=== PATIENT | female | born 1980 | race Caucasian/White ===

== ENCOUNTER → 2017-07-08 | Outpatient (CLI) | payer OTHER ==
--- NOTE | 2017-07-08 15:19 | US ---
EXAMINATION TYPE: US pelvic complete DATE OF EXAM: 07/08/2017 COMPARISON: Pelvic ultrasound December 08, 2011 CLINICAL HISTORY: N92.1 IRREGULAR INTERMENSTRUAL BLEEDING. Vaginal spotting mid cycle x several years ; C Section x 5, Tubal ligation; G7P; Thyroid issues per patient. TECHNIQUE: Transvaginal (TV) and Transabdominal (TA) to better assess endometrium as was not well se en on TAUS. Date of LMP: 06/24/2017 EXAM MEASUREMENTS: Uterus: 9.2 x 4.2 x 3.8 cm Endometrial Stripe: 0.9 cm Right Ovary: 2.7 x 1.8 x 2.1 cm Left Ovary: 3.0 x 1.7 x 2.0 cm 1. Uterus: Anteverted; Fluid pocket noted at C section scar in HEYDI = 0.7 x 0.9 x 0.3cm 2. Endometrium: wnl 3. Right Ovary: small follicles with largest = 0.5 x 0.4 x 0.5cm 4. Left Ovary: multifollicular with largest as complex cyst with peripheral color flow = 1.3 x 1.4 x 1.1cm 5. Bilateral Adnexa: wnl 6. Posterior cul-de-sac: wnl Uterus is anteverted in shape. Tiny fluid collection along the anterior lower uterine sectio n scar is incidentally noted. Endometrium is 9 mm which is within normal limits for secretory phase o f menstrual cycle. No free fluid is seen in pelvic cul-de-sac. Both ovaries are identified. Some peripheral follicles are scattered throughout the periphery of both ovaries. IMPRESSION: No significant finding is seen to account for patient's symptoms.
== END | disposition home or self-care (01) ==
LOC: RADUSWWP 13:39
PROVIDERS: ATTEND Obstetrics & Gynecology
DX: N92.1 Excessive and frequent menstruation with irregular cycle (principal)
CPT/HCPCS: 76830; 76856

== ENCOUNTER → 2017-08-02 | Outpatient (CLI) | payer OTHER ==
[2017-08-02 13:43] LABS: Basophils # (A) 0.1 k/uL (0-0.2); Basophils % (A) 1 %; CHCM 33.5; Eosinophils # (A) 0.2 k/uL (0-0.7); Eosinophils % (A) 2 %; HCT 43.6 % (34.0-46.0); HDW 2.55; HGB 14.7 gm/dL (11.4-16.0); Luc # (Auto) 0.22; Luc % (Auto) 3; Lymphocytes # (A) 1.6 k/uL (1.0-4.8); Lymphocytes % (A) 19 %; MCH 31.3 pg (25.0-35.0); MCHC 33.7 g/dL (31.0-37.0); MCV 92.8 fL (80.0-100.0); Mean Platelet Volume 6.1; Monocytes # (A) 0.3 k/uL (0-1.0); Monocytes % (A) 4 %; Neutrophils # (A) 5.8 k/uL (1.3-7.7); Neutrophils % (A) 72 %; RDW 12.9 % (11.5-15.5); WBC (Perox) 8.57
== END | disposition home or self-care (01) ==
LOC: LABWHC1 13:06
PROVIDERS: ATTEND Obstetrics & Gynecology
DX: Z01.812 Encounter for preprocedural laboratory examination (principal)
CPT/HCPCS: 36415; 85025

== ENCOUNTER 2017-08-09 08:10 | Day surgery (SDC) | payer OTHER ==
[2017-08-05 12:00] VITALS: BMI 26.9
--- NOTE | 2017-08-08 17:15 | P.HPOB ---
History of Present Illness H&P Date: 08/08/17 Chief Complaint: Menorrhagia 37-year-old presents for D&C, hysteroscopy, endometrial ablation with NovaSure due to menorrhagia. Review of Systems All systems: negative Constitutional: Denies chills, Denies fever Eyes: denies blurred vision, denies pain Ears, nose, mouth and throat: Denies headache, Denies sore throat Cardiovascular: Denies chest pain, Denies shortness of breath Respiratory: Denies cough Gastrointestinal: Denies abdominal pain, Denies diarrhea, Denies nausea, Denies vomiting Genitourinary: Denies dysuria, Denies hematuria Musculoskeletal: Denies myalgias Integumentary: Denies pruritus, Denies rash Neurological: Denies numbness, Denies weakness Psychiatric: Denies anxiety, Denies depression Endocrine: Denies fatigue, Denies weight change Past Medical History Past Medical History: Hypertension, Neurologic Disorder (Neuropathy, migraines) , Syncope, Thyroid Disorder (Hypothyroid) Additional Past Medical History / Comment(s): sjogrens History of Any Multi-Drug Resistant Organisms: None Reported Past Surgical History: Section, Cholecystectomy, Tubal Ligation Additional Past Surgical History / Comment(s): rt breast lumpectomy, brain tumor removed 2014, abdominoplasty, Past Anesthesia/Blood Transfusion Reactions: No Reported Reaction Smoking Status: Current every day smoker - Past Family History Mother Family Medical History: No Reported History Medications and Allergies Home Medications Medication Instructions Recorded Confirmed Type Cyanocobalamin (Vitamin B-12) 1,000 mcg PO DAILY 08/05/17 08/05/17 History [Vitamin B-12] Cyclobenzaprine [Flexeril] 10 mg PO TID PRN 08/05/17 08/05/17 History Ergocalciferol [Vitamin D2] 50,000 unit PO ESQUIVEL 08/05/17 08/05/17 History Gabapentin [Neurontin] 600 mg PO TID 08/05/17 08/05/17 History Hydroxychloroquine Sulfate 200 mg PO BID 08/05/17 08/05/17 History [Plaquenil] Levothyroxine Sodium [Synthroid] 125 mcg PO DAILY 08/05/17 08/05/17 History Losartan/Hydrochlorothiazide 1 each PO DAILY 08/05/17 08/05/17 History [Losartan-Hctz 100-25 mg Tab] Pilocarpine [Salagen] 5 mg PO BID 08/05/17 08/05/17 History Topiramate [Topamax] 150 mg PO BID 08/05/17 08/05/17 History Triamterene/Hydrochlorothiazid 1 cap PO DAILY 08/05/17 08/05/17 History [Dyazide 37.5-25 Capsule] amLODIPine [Norvasc] 5 mg PO BID 08/05/17 08/05/17 History Allergies Allergy/AdvReac Type Severity Reaction Status Date / Time No Known Allergies Allergy Verified 08/05/17 11:49 Exam Osteopathic Statement: *. No significant issues noted on an osteopathic structural exam other than those noted in the History and Physical/Consult. Heart: Regular rate and rhythm Lungs: Clear to auscultation bilaterally Abdomen: Soft, nontender Extremities: Negative Homans sign Assessment and Plan (1) Menorrhagia Status: Acute Plan: 1. D&C, hysteroscopy, endometrial ablation with NovaSure
[~2017-08-09 08:10] MED LIST: DEXAMETHASONE SOD PHOSPHATE 10 MG/ML 1 ML VIAL IV ONE; LACTATED RINGERS 1,000 ML IV SCH; MIDAZOLAM 2 MG/2 ML VIAL IV PRN; ONDANSETRON 4 MG/2 ML VIAL IVP ONE; Pre Op ABX Message 1 EACH MISC MISCELLANE ONE; SCOPOLAMINE 1.5MG/72HR PATCH TRANSDERM ONE
[2017-08-09 08:32] VITALS: RESP 16
[2017-08-09] MEDS ORDERED: LIDOCAINE 1% 20 ML VIAL (10MG/ML) FOR IV START INTRADERMA ONE (08:43)
[2017-08-09] MEDS ORDERED: MIDAZOLAM 2 MG/2 ML VIAL ONE (09:18)
[2017-08-09] MEDS ORDERED: fentaNYL (PF) 50 MCG/ML 2 ML AMP ONE (09:18)
[2017-08-09] MEDS ORDERED: LIDOCAINE 1% INJ 10MG/ML (20 ML MDV) ONE (09:18)
[2017-08-09] MEDS ORDERED: PROPOFOL 10 MG/ML 20 ML VIAL IV ONE (09:18)
--- NOTE | 2017-08-09 09:47 | P.OP ---
Date of Procedure: 08/09/17 Preoperative Diagnosis: 1. Menorrhagia Postoperative Diagnosis: 1. Menorrhagia Procedure(s) Performed: D&C, hysteroscopy, endometrial ablation with NovaSure Implants: Anesthesia: MAC Surgeon: Shani Perez Estimated Blood Loss (ml): 10 IV fluids (ml): 300 Urine output (ml): 50 Pathology: other (Endometrial curettings) Condition: stable Disposition: PACU Indications for Procedure: Operative Findings: Cavity length 6.5 cm, width 4.1 cm, power 147 W, time of ablation 75 seconds, adequate ablation after NovaSure Description of Procedure: Patient is taken the operating room where general anesthesia was obtained without difficulty. She was prepped and draped in normal sterile fashion dorsal lithotomy position, legs placed in the candy cane stirrups. Bladder was drained of all urine. Weighted speculum placed in the vagina and the anterior lip the cervix was grasped with serial tooth tenaculum. The uterus sounded to 9 cm and the cervix under 2.5 cm making the cavity length 6.5 cm. The cervix was dilated to #8 Hegar dilator. Hysteroscopy was then performed. Both ostia were visualized and there was a smooth contour of the uterus. Sharp curet was then gently used to obtain endometrial curettings. The NovaSure was introduced into the uterus with a cavity length of 6.5 cm, width 4.1 cm. after cavity assessment was passed, the time of ablation was 75 seconds at 147 W. Hysteroscopy was again performed and adequate ablation was noted. All instruments removed from the vagina. Patient tolerated the procedure well, sponge and instrument counts were correct 2 and she was taken to recovery in stable condition.
[2017-08-09] MEDS: HYDROmorphone 1 MG/ML 1 ML SYRINGE IVP PRN ×4 (09:56→10:19)
[2017-08-09] MEDS ORDERED: KETOROLAC 30 MG/ML 1 ML VIAL IVP ONE (09:56)
[2017-08-09 10:03] VITALS: TEMP 98
[2017-08-09] MEDS: MEPERIDINE 50 MG/ML SYRINGE IVP ONE ×2 (10:27→10:35)
[2017-08-09 14:11] VITALS: BP 117/70; PULSE 84
== END 2017-08-09 11:45 | disposition home or self-care (01) ==
LOC: OR 08:10
PROVIDERS: ATTEND Obstetrics & Gynecology
DX: N92.1 Excessive and frequent menstruation with irregular cycle (principal); I10 Essential (primary) hypertension; G62.9 Polyneuropathy, unspecified; G43.909 Migraine, unspecified, not intractable, without status migrainosus; E03.9 Hypothyroidism, unspecified; M35.00 Sjogren syndrome, unspecified; R55 Syncope and collapse; Z98.51 Tubal ligation status; F17.200 Nicotine dependence, unspecified, uncomplicated; Z79.899 Other long term (current) drug therapy
CPT/HCPCS: 81025; 88305; 58563; J2250; J1100; J2175; J2405; J2001; J3010; J1885; J1170; J2704

== ENCOUNTER 2017-12-02 05:38 | Emergency (ER) | payer OTHER ==
[2017-12-02] MEDS ORDERED: levETIRAcetam IV 1,000 MG in SALINE 1 100ML.BAG IVPB STA (05:46)
[2017-12-02] MEDS ORDERED: LORazepam 2 MG/ML INJ IV STA (05:46)
[2017-12-02] MEDS ORDERED: SODIUM CHLORIDE 0.9% 500 ML IV STA (05:46)
[2017-12-02] MEDS ORDERED: SODIUM CHLORIDE 0.9% 1,000 ML IV STA (05:46)
[2017-12-02 05:57] LABS: Basophils % (A) 1 %; Eosinophils # (A) 0.3 k/uL (0-0.7); Eosinophils % (A) 3 %; HCT 42.7 % (34.0-46.0); HGB 13.7 gm/dL (11.4-16.0); Lymphocytes # (A) 2.4 k/uL (1.0-4.8); Lymphocytes % (A) 30 %; MCHC 32.1 g/dL (31.0-37.0); MCV 93.4 fL (80.0-100.0); Mean Platelet Volume 6.6; Monocytes # (A) 0.3 k/uL (0-1.0); Monocytes % (A) 3 %; Neutrophils # (A) 4.7 k/uL (1.3-7.7); Neutrophils % (A) 60 %; Platelet Count 346 k/uL (150-450); RBC 4.57 m/uL (3.80-5.40); RDW 12.9 % (11.5-15.5); WBC 7.7 k/uL (3.8-10.6)
[2017-12-02 06:07] LABS: ALT 33 U/L (9-52); AST 22 U/L (14-36); Acetaminophen <10.0 ug/mL; Alcohol <10 mg/dL; Alkaline Phosphatase 37 U/L (38-126); Anion Gap 8 mmol/L; Blood Urea Nitrogen 9 mg/dL (7-17); Calcium 9.6 mg/dL (8.4-10.2); Carbon Dioxide 28 mmol/L (22-30); Chloride 103 mmol/L (98-107); Glucose 98 mg/dL (74-99); Magnesium 1.7 mg/dL (1.6-2.3); Phosphorus 3.9 mg/dL (2.5-4.5); Potassium 4.3 mmol/L (3.5-5.1); Salicylate <1.0 mg/dL; Sodium 139 mmol/L (137-145); Total Bilirubin 0.2 mg/dL (0.2-1.3); Total Protein 6.6 g/dL (6.3-8.2)
--- NOTE | 2017-12-02 06:13 | ED ---
General Adult HPI - General Chief complaint: Seizure Stated complaint: seizure Time Seen by Provider: 12/02/17 05:46 Source: patient, EMS, RN notes reviewed, old records reviewed Mode of arrival: EMS Limitations: no limitations - History of Present Illness Initial comments: This is a 37 female to the ED complains of possible seizure actrivity. 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 She states she has had a seizure previously and has a history of brain surgery sp brain tumor. Patient denies drugs or alcohol. Patient hasa occasional headaches but now has nocomplaints. Patient and EMS state patient had seixure that woke and stopped on EMS arrival, patient has no injury, and was postIctal. - Related Data Home Medications Medication Instructions Recorded Confirmed Cyanocobalamin (Vitamin B-12) 1,000 mcg PO DAILY 08/05/17 12/02/17 [Vitamin B-12] Cyclobenzaprine [Flexeril] 10 mg PO TID PRN 08/05/17 12/02/17 Ergocalciferol [Vitamin D2] 50,000 unit PO ESQUIVEL 08/05/17 12/02/17 Gabapentin [Neurontin] 600 mg PO TID 08/05/17 12/02/17 Hydroxychloroquine Sulfate 200 mg PO BID 08/05/17 12/02/17 [Plaquenil] Levothyroxine Sodium [Synthroid] 125 mcg PO DAILY 08/05/17 12/02/17 Losartan/Hydrochlorothiazide 1 each PO DAILY 08/05/17 12/02/17 [Losartan-Hctz 100-25 mg Tab] Pilocarpine [Salagen] 5 mg PO BID 08/05/17 12/02/17 Topiramate [Topamax] 150 mg PO BID 08/05/17 12/02/17 Triamterene/Hydrochlorothiazid 1 cap PO DAILY 08/05/17 12/02/17 [Dyazide 37.5-25 Capsule] amLODIPine [Norvasc] 5 mg PO BID 08/05/17 12/02/17 Previous Rx's Medication Instructions Recorded Ibuprofen [Motrin] 600 mg PO Q6HR PRN #30 tab 08/09/17 Allergies Allergy/AdvReac Type Severity Reaction Status Date / Time No Known Allergies Allergy Verified 12/02/17 05:43 Review of Systems ROS Statement: Those systems with pertinent positive or pertinent negative responses have been documented in the HPI. ROS Other: All systems not noted in ROS Statement are negative. Past Medical History Past Medical History: Hypertension History of Any Multi-Drug Resistant Organisms: None Reported Past Surgical History: Cholecystectomy, Uterine Ablation Additional Past Surgical History / Comment(s): brain tumor removed 2014 Past Psychological History: No Psychological Hx Reported Smoking Status: Current every day smoker Past Alcohol Use History: None Reported General Exam Limitations: no limitations General appearance: alert, in no apparent distress, anxious Head exam: Present: atraumatic, normocephalic, normal inspection Eye exam: Present: normal appearance, PERRL, EOMI. Absent: scleral icterus, conjunctival injection, periorbital swelling ENT exam: Present: normal exam, mucous membranes moist Neck exam: Present: normal inspection. Absent: tenderness, meningismus, lymphadenopathy Respiratory exam: Present: normal lung sounds bilaterally. Absent: respiratory distress, wheezes, rales, rhonchi, stridor Cardiovascular Exam: Present: regular rate, normal rhythm, normal heart sounds. Absent: systolic murmur, diastolic murmur, rubs, gallop, clicks GI/Abdominal exam: Present: soft, normal bowel sounds. Absent: distended, tenderness, guarding, rebound, rigid Extremities exam: Present: normal inspection, full ROM, normal capillary refill. Absent: tenderness, pedal edema, joint swelling, calf tenderness Back exam: Present: normal inspection Neurological exam: Present: alert, oriented X3, CN II-XII intact Psychiatric exam: Present: normal affect, normal mood Skin exam: Present: warm, dry, intact, normal color. Absent: rash Course Vital Signs 12/02/17 12/02/17 05:39 06:33 Temperature 97.9 F Pulse Rate 89 67 Respiratory 20 18 Rate Blood Pressure 119/89 133/92 O2 Sat by Pulse 97 99 Oximetry - Reevaluation(s) Reevaluation #1: 12/02/17 06:42 New no seizure-like activity here in the emergency room, patient states she is back to baseline EKG Findings - EKG Comments: EKG Findings:: EKG shows normal sinus rhythm rate of 65, FL 154, QRS 70, QTc 420 Medical Decision Making - Medical Decision Making 37 female DEL with prior head surgery, CT negative labwork normal patient will be discharged home on seizure medications to follow up with neurology, patient refusing to stay in the hospital for further neurological testing at this time - Lab Data Result diagrams: 12/02/17 05:36 12/02/17 05:36 Lab Results 12/02/17 12/02/17 Range/Units 05:36 05:36 WBC 7.7 (3.8-10.6) k/uL RBC 4.57 (3.80-5.40) m/uL Hgb 13.7 (11.4-16.0) gm/dL Hct 42.7 (34.0-46.0) % MCV 93.4 (80.0-100.0) fL MCH 30.0 (25.0-35.0) pg MCHC 32.1 (31.0-37.0) g/dL RDW 12.9 (11.5-15.5) % Plt Count 346 (150-450) k/uL Neutrophils % 60 % Lymphocytes % 30 % Monocytes % 3 % Eosinophils % 3 % Basophils % 1 % Neutrophils # 4.7 (1.3-7.7) k/uL Lymphocytes # 2.4 (1.0-4.8) k/uL Monocytes # 0.3 (0-1.0) k/uL Eosinophils # 0.3 (0-0.7) k/uL Basophils # 0.0 (0-0.2) k/uL Sodium 139 (137-145) mmol/L Potassium 4.3 (3.5-5.1) mmol/L Chloride 103 (98-107) mmol/L Carbon Dioxide 28 (22-30) mmol/L Anion Gap 8 mmol/L BUN 9 (7-17) mg/dL Creatinine 0.80 (0.52-1.04) mg/dL Est GFR (MDRD) Af Amer >60 (>60 ml/min/1.73 sqM) Est GFR (MDRD) Non-Af >60 (>60 ml/min/1.73 sqM) Glucose 98 (74-99) mg/dL Calcium 9.6 (8.4-10.2) mg/dL Phosphorus 3.9 (2.5-4.5) mg/dL Magnesium 1.7 (1.6-2.3) mg/dL Total Bilirubin 0.2 (0.2-1.3) mg/dL AST 22 (14-36) U/L ALT 33 (9-52) U/L Alkaline Phosphatase 37 L (38-126) U/L Total Protein 6.6 (6.3-8.2) g/dL Albumin 4.0 (3.5-5.0) g/dL Salicylates <1.0 mg/dL Acetaminophen <10.0 ug/mL Serum Alcohol <10 mg/dL - Radiology Data Radiology results: report reviewed (CT brain negative for acute disease), image reviewed Disposition Clinical Impression: New onset seizure Disposition: HOME SELF-CARE Condition: Good Instructions: New-Onset Seizure in Adults (ED) Referrals: None,Stated [Primary Care Provider] - 1-2 days
[2017-12-02 06:35] VITALS: PULSE 67
--- NOTE | 2017-12-02 06:36 | CT ---
EXAMINATION TYPE: CT brain wo con DATE OF EXAM: 12/02/2017 COMPARISON: Prior MRI brain March 23, 2016 HISTORY: seizure CT DLP: 892.1 mGycm. Automated Exposure Control for Dose Reduction was Utilized. TECHNIQUE: CT scan of the head is performed without contrast. FINDINGS: There is no acute intracranial hemorrhage, mass effect, or midline shift identified. The ventricles and sulci are within normal limits in size. Bergeron-white matter differentiation is preserve d. The globes are intact and the visualized sinuses are clear. The calvarium is intact. IMPRESSION: No acute intracranial hemorrhage, mass effect, or midline shift is seen. No significant change from prior MRI.
[2017-12-02 06:55] VITALS: BP 113/64; RESP 16; TEMP 97
== END 2017-12-02 06:55 | disposition home or self-care (01) ==
LOC: EC 05:38
DX: R56.9 Unspecified convulsions (principal); R51 Headache; I10 Essential (primary) hypertension; F17.200 Nicotine dependence, unspecified, uncomplicated; Z86.011 Personal history of benign neoplasm of the brain; Z79.899 Other long term (current) drug therapy
CPT/HCPCS: 36415; 93005; 80053; 80201; 83735; 84100; 85025; 83520 ×2; 80320; 70450; 99285; 96365; 96361; J1953

== ENCOUNTER → 2018-12-25 | Outpatient (CLI) | payer BC ==
--- NOTE | 2018-12-25 13:01 | MR ---
EXAMINATION TYPE: MR brain wo/w con DATE OF EXAM: 12/25/2018 COMPARISON: 03/23/2016 HISTORY: Cerebral Cysts TECHNIQUE: Multiplanar, multisequence images of the brain and brainstem is performed without and with IV contras t, utilizing 7.5 mL intravenous Gadavist . FINDINGS: Diffusion weighted images demonstrate no evidence of a recent infarct or other diffusion ab normality. There is no extra-axial fluid collection or significant white matter signal abnormality. The ventricular system and cisternal spaces are normal in size and appearance. The brain volume is age appropriate. Midline structures demonstrate normal morphology. There is a partially empty sella turcica. The crani ocervical junction appears within normal limits. Post contrast images demonstrate no abnormal enhanc ement. The dural venous sinuses appear patent. There is a nasal septal deviation changes of mild chronic sinusitis. Single focus of abnormal signal involving the right parietal lobe characterize. Anterior to the cervical medullary junction there is a small CSF collection measuring 6 x 10 mm and a ppears reduced from the exam of 09/03/2014. No definite enhancement. IMPRESSION: 1. At the level of the cervical medullary junction there is a small CSF collection abutting the ventr al cervical medullary junction measuring 6 x 10 mm similar in size to the prior exam along the ventra l surface of the spinal cord and medulla. No significant interval change. No enhancement. Could repre sent a small arachnoid cyst, epidermoid cyst, other etiologies not excluded. 2. Partially empty sella turcica. This can occasionally be seen with intrinsic increased intracranial pressure. Correlate clinically.
== END ==
LOC: RADMRIMAIN 11:35
PROVIDERS: ATTEND Family Medicine
DX: G93.0 Cerebral cysts (principal)
CPT/HCPCS: 70553; A9585

== ENCOUNTER → 2019-06-01 | Outpatient (CLI) | payer BC, OTHER ==
--- NOTE | 2019-06-02 14:35 | MR ---
EXAMINATION TYPE: MR wrist LT wo con DATE OF EXAM: 06/01/2019 COMPARISON: HISTORY: Joint derangements of left wrist, injured from fall Standard multiplanar, multisequence MRI departmental protocol Multiplanar, multisequence images of the left wrist were acquired. FINDINGS: There is abnormal increased signal in the distal scaphoid bone on the T2 images. There is correspondi ng decreased signal on the T1 images. The radiocarpal joint is intact. Triangular cartilage appears i ntact. The flexor and extensor tendons appear intact. There is a 9 x 5 mm cystic fluid collection ant erior to the distal ulna consistent with small synovial cyst. The intercarpal joint spaces are fairly normal. There is some edema in the triquetrum and a linear defect across the proximal triquetrum suggestive o f very nondisplaced fracture. There is soft tissue edema seen posteriorly across the posterior carpus. There is a small rounded focal increased signal in the capitate and trapezoid consistent with degener ative cyst formation. IMPRESSION: There is edema in the distal scaphoid bone consistent with significant bone bruise. Avascular necrosi s is possible. Hairline scaphoid fracture is possible. Small degenerative cysts in the capitate and trapezoid. Increased signal in the triquetrum consistent with bone bruise. Linear defect across the proximal triquetrum consistent with nondisplaced fracture. Posterior soft tissue swelling and edema adjacent to the posterior carpal bones.
== END | disposition home or self-care (01) ==
LOC: RADMRIMAIN 19:42
PROVIDERS: ATTEND Family Medicine
DX: S62.115A Nondisplaced fracture of triquetrum [cuneiform] bone, left wrist, initial encounter for closed fracture (principal); M24.832 Other specific joint derangements of left wrist, not elsewhere classified

== ENCOUNTER → 2019-06-02 | Outpatient (CLI) | payer BC, OTHER ==
--- NOTE | 2019-06-02 11:10 | MR ---
EXAMINATION TYPE: MR elbow LT wo con DATE OF EXAM: 06/02/2019 COMPARISON: X-ray 05/22/2019 HISTORY: Pain Standard multiplanar, multisequence MRI departmental protocol Multiplanar, multisequence images of the left elbow were acquired. FINDINGS: There is a pathologic joint effusion. There appears to be diffuse marrow edema throughout the radial head distal diaphysis of the radius compatible with bone marrow edema or contusion. Suspect a nondepr essed hairline fracture through the radial head. The biceps tendon appears intact. Soft tissue edema noted. Does appear to be edema throughout the tigist p and superficial supinator muscle suggestive of intramuscular strain. Annular ligament is not well-s een and limited in assessment. IMPRESSION: 1. Pathologic joint effusion with extensive marrow edema throughout the radial head and distal diaphy sis of the radius. Suspected nondisplaced radial head fracture. 2. Intramuscular strain superficial and deep supinator muscle.
== END | disposition home or self-care (01) ==
LOC: RADMRIMAIN 09:45
PROVIDERS: ATTEND Family Medicine
DX: M25.422 Effusion, left elbow (principal); S46.912A Strain of unspecified muscle, fascia and tendon at shoulder and upper arm level, left arm, initial encounter

== ENCOUNTER → 2019-06-12 | Outpatient (CLI) | payer BC, OTHER ==
--- NOTE | 2019-06-13 18:15 | MR ---
EXAMINATION TYPE: MR shoulder LT wo con DATE OF EXAM: 06/12/2019 COMPARISON: None HISTORY: Derangement, fall, pain x 2 weeks TECHNIQUE: Multiplanar, multisequence imaging of the left shoulder is performed without contrast. FINDINGS: Rotator Cuff: Abnormal increased signal associated with the rotator cuff. No darin rotator cuff tear however. Acromioclavicular Joint: Arthropathy is present. There is fluid in the subacromial subdeltoid bursa. Suspect a distal acromial spur is present. Glenohumeral Joint: Intact Labrum: The labrum appears grossly intact given limitation of non-arthrogram study. Biceps Tendon: The long head of biceps is in normal location within bicipital groove. Bone marrow signal: No focal abnormal marrow signal is appreciated. Other: No additional significant abnormality is appreciated. IMPRESSION: Suspect some tendinosis of the rotator cuff tendon. Correlate for possible impingement.
== END | disposition home or self-care (01) ==
LOC: RADMRIMAIN 11:02
PROVIDERS: ATTEND Family Medicine
DX: M24.812 Other specific joint derangements of left shoulder, not elsewhere classified (principal)

== ENCOUNTER → 2019-06-15 | Outpatient (CLI) | payer BC, OTHER ==
[2019-06-15 19:09] LABS: HIV 1 AB Non-Reactive (Non-Reactive); HIV AB P24 Non-Reactive (Non-Reactive); HIV P24 AG Non-Reactive (Non-Reactive)
== END | disposition home or self-care (01) ==
LOC: LABWHC1 13:12
PROVIDERS: ATTEND Obstetrics & Gynecology
DX: Z11.3 Encounter for screening for infections with a predominantly sexual mode of transmission (principal)
CPT/HCPCS: 36415; 86780; 87340; 87390

== ENCOUNTER → 2019-06-15 | Outpatient (CLI) | payer BC, OTHER | END | disposition home or self-care (01) | LOC: LABWHC1 13:15 | PROVIDERS: ATTEND Psychiatry & Neurology Neurology | DX: R56.9 Unspecified convulsions (principal) | CPT/HCPCS: 36415; 80177 ==

== ENCOUNTER → 2019-08-22 | Outpatient (CLI) | payer BC, OTHER | END | disposition home or self-care (01) | LOC: LABWHC1 14:20 | PROVIDERS: ATTEND Orthopaedic Surgery | DX: E55.9 Vitamin D deficiency, unspecified (principal); M25.532 Pain in left wrist | CPT/HCPCS: 36415; 82306 ==

== ENCOUNTER → 2019-11-17 | Outpatient (CLI) | payer BC, OTHER ==
--- NOTE | 2019-11-17 11:14 | MR ---
EXAMINATION TYPE: MR brain wo/w con DATE OF EXAM: 11/17/2019 9:50 AM COMPARISON: Previous study dated 12/25/2018. HISTORY: F/U for arachnoid Cyst TECHNIQUE: Multiplanar, multiecho imaging of the brain was obtained with and without intravenous adm inistration of 7 mL intravenous Gadavist. FINDINGS: There is a cystic lesion measuring 10.7 x 1.6 cm just ventral to the medulla and proximal c ervical Midline structures are otherwise unremarkable. There is a normal craniocervical junction. Echoplanar diffusion imaging is normal. There are normal vascular flow voids. The orbits are normal. There is no evidence of a CP angle mass lesion. No other acute focal lesion, mass effect or midline shift is seen. I do not see evidence of intracran ial blood. Following intravenous administration of gadolinium, I do not see evidence of abnormal enhancement. IMPRESSION: 1. NO ACUTE INTRACRANIAL ABNORMALITY. 2. CYSTIC LESION ANTERIOR TO THE MEDULLA AND PROXIMAL CERVICAL SPINAL CORD MAY BE MINIMALLY MORE PROM INENT THAN ON THE PREVIOUS STUDY WHICH TIME IT WAS MEASURED AT 6 X 10 MM.
== END | disposition home or self-care (01) ==
LOC: RADMRIMAIN 09:09
PROVIDERS: ATTEND Neurological Surgery
DX: G93.0 Cerebral cysts (principal); G93.89 Other specified disorders of brain
CPT/HCPCS: 70553; A9585

== ENCOUNTER 2020-01-14 11:04 | Emergency (ER) | payer BC, OTHER ==
[2020-01-14] MEDS ORDERED: HYDROmorphone 0.5 MG/0.5 ML SYRINGE IM STA ×2 (11:44→13:09)
[2020-01-14] MEDS ORDERED: CYCLOBENZAPRINE 10MG STARTER 3 TAB BTL PO STA (11:46)
[2020-01-14] MEDS ORDERED: KETOROLAC 30 MG/ML 1 ML VIAL IM STA (12:07)
--- NOTE | 2020-01-14 12:53 | XR ---
EXAMINATION TYPE: XR Hip Complete LT DATE OF EXAM: 01/14/2020 COMPARISON: NONE HISTORY: Pain TECHNIQUE: 2 views submitted FINDINGS: There is no evidence of erosive change or acute fracture. Calcification along the greater trochanter noted and there is moderate narrowing the hip joint with hypertrophic change involving the acetabulum . IMPRESSION: 1. Left hip arthropathy. Correlate for femoral acetabular impingement. Follow-up MRI as clinically wa rranted. 2. calcification or ossification along the greater trochanter can occasionally be associated with tro chanteric bursitis.
--- NOTE | 2020-01-14 12:54 | XR ---
EXAM TYPE: LUMBAR SPINE X RAY SERIES COMPARISON: NONE HISTORY: Pain TECHNIQUE: 4 views are submitted. FINDINGS: Alignment is anatomic. The pedicles are intact. The transverse processes are intact. There is no s pondylolysis or spondylolisthesis. Postsurgical change the right upper quadrant. Small spurs at L3 an d L1 anteriorly. On the lateral view there is a radiopaque density overlying the posterior margin of L5 not seen on the frontal view therefore likely superficial to the patient. Facet arthropathy L4-5 a nd L5 IMPRESSION: 1. Facet arthropathy L4-5 and L5-S1. If there is concern for disc herniation correlate with MRI..
[2020-01-14] MEDS ORDERED: ONDANSETRON ODT 4 MG TAB PO STA (13:09)
[2020-01-14] MEDS ORDERED: ACET/COD 300 MG/30 MG STARTER PACK 6 TAB BTL PO STA (13:09)
--- NOTE | 2020-01-14 13:15 | ED ---
General Adult HPI - General Chief complaint: Headache Stated complaint: migraine/back & hip pain Time Seen by Provider: 01/14/20 11:16 Source: patient Mode of arrival: ambulatory Limitations: no limitations - History of Present Illness Initial comments: 39-year-old female with history of chronic low back, hip pain, chronic migraines, seizure d/o presenting today for multiple complaints. 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 Patient states that she takes Toradol for the pain she states she is currently out of the medication she states that she also has been having low back and left hip pain she states is chronic but seems to be increasing for the past 2 days. Patient denies any redness no trauma or falls denies loss of bowel bladder control urinary retention weakness of the upper or lower extremities. Patient denies any sensation deficits nausea vomiting neck stiffness photophobia patient denies this being the worst headache of her life or sudden onset is consistent going on and off for weeks. She states she usually has chronic pain and this is not new to her. Patient also states she is out of her Keppra and has not taken it in 2 days. Patient denies breath through seizures, ataxia. Patient has no other complaints upon arrival she appears well ambulatory - Related Data Home Medications Medication Instructions Recorded Confirmed Cyanocobalamin (Vitamin B-12) 1,000 mcg PO DAILY 08/05/17 05/22/19 [Vitamin B-12] Cyclobenzaprine [Flexeril] 10 mg PO TID PRN 08/05/17 05/22/19 Ergocalciferol [Vitamin D2] 50,000 unit PO ESQUIVEL 08/05/17 05/22/19 Gabapentin [Neurontin] 600 mg PO TID 08/05/17 05/22/19 Levothyroxine Sodium [Synthroid] 125 mcg PO DAILY 08/05/17 05/22/19 Losartan/Hydrochlorothiazide 1 tab PO DAILY 08/05/17 05/22/19 [Losartan-Hctz 100-25 mg Tab] Pilocarpine [Salagen] 5 mg PO BID 08/05/17 05/22/19 Triamterene/Hydrochlorothiazid 1 cap PO DAILY 08/05/17 05/22/19 [Dyazide 37.5-25 Capsule] amLODIPine [Norvasc] 5 mg PO BID 08/05/17 05/22/19 Meloxicam [Mobic] 15 mg PO BID 05/22/19 05/22/19 Topiramate [Topamax] 75 mg PO BID 05/22/19 05/22/19 traZODone HCL [Desyrel] 150 mg PO HS 05/22/19 05/22/19 Previous Rx's Medication Instructions Recorded Ibuprofen [Motrin] 600 mg PO Q6HR PRN #30 tab 08/09/17 levETIRAcetam [Keppra] 500 mg PO BID #60 tab 12/02/17 Ketorolac [Toradol] 10 mg PO Q6HR #15 tab 05/22/19 Ketorolac [Toradol] 10 mg PO Q12H PRN 5 Days #10 tab 01/14/20 levETIRAcetam [Keppra] 750 mg PO Q12HR 7 Days #14 tab 01/14/20 Allergies Allergy/AdvReac Type Severity Reaction Status Date / Time No Known Allergies Allergy Verified 01/14/20 11:12 Review of Systems ROS Statement: Those systems with pertinent positive or pertinent negative responses have been documented in the HPI. ROS Other: All systems not noted in ROS Statement are negative. 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 Eye: +3 mm pupils are equal, round and reactive to light, extra-ocular movements are intact. No nystagmus. There is normal conjunctiva bilaterally. No signs of icterus. Ears, nose, mouth and throat: There are moist mucous membranes and no oral lesions. Neck: The neck is supple, there is no tenderness or JVD. Cardiovascular: There is a regular rate and rhythm. No murmur, rub or gallop is appreciated. Respiratory: Lungs are clear to auscultation, respirations are non-labored, breath sounds are equal. No wheezes, stridor, rales, or rhonchi. Gastrointestinal: Soft, non-distended, non-tender abdomen without masses or organomegaly noted. There is no rebound or guarding present. Musculoskeletal: Normal ROM of the LE b/l, no tenderness. Strength 5/5 of the UE and LE b/l. 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 Sensation intact of the UE and LE b/l including saddle region. Radial and DP pulses equal bilaterally 2+. Neurological: A&O x 3. CN II-XII intact, There are no obvious motor or sensory deficits. No pronator drift. No ataxia. Coordination appears intact. Speech is normal. Skin: Skin is warm and dry and no rashes or lesions are noted. Psychiatric: Cooperative, appropriate mood & affect, normal judgment. Limitations: no limitations Course Vital Signs 01/14/20 01/14/20 11:12 13:31 Temperature 97.9 F 98 F Pulse Rate 98 75 Respiratory 16 18 Rate Blood Pressure 105/73 108/71 O2 Sat by Pulse 100 99 Oximetry Medical Decision Making - Medical Decision Making 39-year-old female presenting today for chief complaint of increasing chronic left hip and low back pain as well as headache out of Toradol. Patient is no physical examination findings nor history concerning for cauda equina. Patient is a direct injury, IV drug use or history of fevers no history of cancer. Patient's x-ray reveals consistent with degenerative changes as well as a possible femoral acetabular impingement syndrome. Cannot exclude a bursitis developing. Patient has no fever or flulike symptoms vital signs within acceptable limits patient is able to fully range the hip. Strength preserved. No focal neurological deficits. History of chronic migraines, dneies changes in characteristic. Patient given toradol, IM dilaudid in the ER. Patient will be discharge with orthopedic f/u and neurology f/u. Recommend outpatient MRI of hip and back as ordered by PCP or orthopedics. Instructed patient to return for worsening symptoms, discussed symptoms of cauda equina. Patient is agreeable to care plan. Toradol and keppra refilled. discussed case with Dr. Calderón who was agreeable to care plan and discharge at this time. Disposition Clinical Impression: Chronic pain, Chronic headaches, Hx of migraines, History of brain tumor, Chronic back pain, Chronic left hip pain, Femoral acetabular impingement, Hip bursitis, left Disposition: HOME SELF-CARE Condition: Good Instructions (If sedation given, give patient instructions): Migraine Headache (ED), Hip Pain (ED) Additional Instructions: Please use medication as discussed. Please follow-up with family doctor in the next 2 days-- follow-up with orthopedic associated for chronic back and hip pain, call neurologist today to discuss visit. Please return to emergency room if the symptoms increase or worsen or for any other concerns. Prescriptions: levETIRAcetam [Keppra] 750 mg PO Q12HR 7 Days #14 tab Ketorolac [Toradol] 10 mg PO Q12H PRN 5 Days #10 tab PRN Reason: Pain Is patient prescribed a controlled substance at d/c from ED?: No Referrals: Mahsa Tamayo MD [Primary Care Provider] - 1-2 days Trini Lopez DO [Doctor of Osteopathic Medicine] - 1-2 days Time of Disposition: 13:13
[2020-01-14 13:32] VITALS: BP 108/71; PULSE 75; RESP 18; TEMP 98
== END 2020-01-14 13:31 | disposition home or self-care (01) ==
LOC: EC 11:04
DX: G89.29 Other chronic pain (principal); R51 Headache; M70.72 Other bursitis of hip, left hip; M54.5 Low back pain; F17.200 Nicotine dependence, unspecified, uncomplicated; F41.9 Anxiety disorder, unspecified; F32.9 Major depressive disorder, single episode, unspecified; G40.909 Epilepsy, unspecified, not intractable, without status epilepticus; I10 Essential (primary) hypertension; Z79.1 Long term (current) use of non-steroidal anti-inflammatories (NSAID); Z79.899 Other long term (current) drug therapy; Z79.890 Hormone replacement therapy; Z86.69 Personal history of other diseases of the nervous system and sense organs
CPT/HCPCS: 72100; 73502; 99283; 96372 ×3; J1885; J1170

== ENCOUNTER 2020-01-16 20:39 | Emergency (ER) | payer OTHER ==
[2020-01-16] MEDS ORDERED: PANTOPRAZOLE 40 MG/10 ML VIAL IVP STA (21:43)
[2020-01-16] MEDS ORDERED: SODIUM CHLORIDE 0.9% 1,000 ML IV STA (21:43)
[2020-01-16] MEDS ORDERED: ONDANSETRON 4 MG/2 ML VIAL IVP STA (21:43)
[2020-01-16] MEDS ORDERED: KETOROLAC 30 MG/ML 1 ML VIAL IVP STA (21:43)
--- NOTE | 2020-01-16 21:47 | ED ---
General Adult HPI - General Chief complaint: Headache Stated complaint: Headache, Abd Pain Time Seen by Provider: 01/16/20 21:31 Source: patient Mode of arrival: ambulatory Limitations: no limitations - History of Present Illness Initial comments: Patient is a 39-year-old female with history of Sjogren's disease, migraines, back pain abdominal pain presents to the emergency department with multiple chief complaints. States she was in the ED with similar type symptoms. States her migraine has never fully resolved. States the pain is located behind her left eye and it feels like her typical migraine. Does report nausea and photosensitivity but denies any vomiting. States over the last 2 days she has developed abdominal pain in the suprapubic and epigastric region. Also reports back pain although notices present at baseline. Denies urgency frequency or dysuria. Denies any urinary or bowel incontinence. Does have history of cholecystectomy. Patient is also concerned for a kidney infection because she has bilateral flank pain. Denies any fevers or chills. - Related Data Home Medications Medication Instructions Recorded Confirmed Cyanocobalamin (Vitamin B-12) 1,000 mcg PO DAILY 08/05/17 05/22/19 [Vitamin B-12] Cyclobenzaprine [Flexeril] 10 mg PO TID PRN 08/05/17 05/22/19 Ergocalciferol [Vitamin D2] 50,000 unit PO ESQUIVEL 08/05/17 05/22/19 Gabapentin [Neurontin] 600 mg PO TID 08/05/17 05/22/19 Levothyroxine Sodium [Synthroid] 125 mcg PO DAILY 08/05/17 05/22/19 Losartan/Hydrochlorothiazide 1 tab PO DAILY 08/05/17 05/22/19 [Losartan-Hctz 100-25 mg Tab] Pilocarpine [Salagen] 5 mg PO BID 08/05/17 05/22/19 Triamterene/Hydrochlorothiazid 1 cap PO DAILY 08/05/17 05/22/19 [Dyazide 37.5-25 Capsule] amLODIPine [Norvasc] 5 mg PO BID 08/05/17 05/22/19 Meloxicam [Mobic] 15 mg PO BID 05/22/19 05/22/19 Topiramate [Topamax] 75 mg PO BID 05/22/19 05/22/19 traZODone HCL [Desyrel] 150 mg PO HS 05/22/19 05/22/19 Previous Rx's Medication Instructions Recorded Ibuprofen [Motrin] 600 mg PO Q6HR PRN #30 tab 08/09/17 levETIRAcetam [Keppra] 500 mg PO BID #60 tab 12/02/17 Ketorolac [Toradol] 10 mg PO Q6HR #15 tab 05/22/19 Ketorolac [Toradol] 10 mg PO Q12H PRN 5 Days #10 tab 01/14/20 levETIRAcetam [Keppra] 750 mg PO Q12HR 7 Days #14 tab 01/14/20 Allergies Allergy/AdvReac Type Severity Reaction Status Date / Time No Known Allergies Allergy Verified 01/16/20 21:15 Review of Systems ROS Statement: Those systems with pertinent positive or pertinent negative responses have been documented in the HPI. ROS Other: All systems not noted in ROS Statement are negative. 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 History of Any Multi-Drug Resistant Organisms: None Reported Past Surgical History: Cholecystectomy, Uterine Ablation Additional Past Surgical History / Comment(s): brain tumor removed 2014 Past Psychological History: Anxiety, Depression Smoking Status: Current every day smoker Past Alcohol Use History: None Reported Past Drug Use History: None Reported General Exam Limitations: no limitations General appearance: alert, in no apparent distress Head exam: Present: atraumatic, normocephalic, normal inspection Eye exam: Present: normal appearance Pupils: Present: normal accommodation ENT exam: Present: normal exam, normal oropharynx, mucous membranes dry Neck exam: Present: normal inspection, full ROM. Absent: lymphadenopathy Respiratory exam: Present: normal lung sounds bilaterally. Absent: respiratory distress, wheezes Cardiovascular Exam: Present: regular rate, normal rhythm, normal heart sounds GI/Abdominal exam: Present: soft, tenderness (Suprapubic tenderness. Negative McBurney point tenderness.). Absent: distended, guarding, rebound, rigid, hernia Extremities exam: Present: normal inspection, full ROM Back exam: Present: normal inspection, full ROM Neurological exam: Present: alert, oriented X3 Psychiatric exam: Present: normal affect, normal mood Skin exam: Present: warm, dry, intact, normal color Course Vital Signs 01/16/20 01/16/20 21:07 23:03 Temperature 98.3 F 98.2 F Pulse Rate 54 L 72 Respiratory 20 17 Rate Blood Pressure 99/62 95/56 O2 Sat by Pulse 99 100 Oximetry Medical Decision Making - Medical Decision Making Patient is a 39-year-old female with history of Sjogren's, chronic back pain, abdominal pain and migraines presenting to the emergency department with multiple chief complaints. She was in the ED 2 days ago with similar chief complaints. States her migraine has never resolved. Patient was given a migraine cocktail with some improvement in symptoms. Patient was also given Dilaudid. States her symptoms completely improved. CBC and CMP are unremarkable. Patient is not . UA is unremarkable. Patient does have history of multiple autoimmune conditions and is on multiple medication to treat it. I suspect her symptoms are secondary to the multiple medication. At this time no further imaging is necessary. Patient is concerned for pain, her primary care would not prescribe her any opiates. Patient was given a Tylenol 3 starter pack. Patient was advised to follow-up with her primary care. Return parameters were thoroughly discussed with patient is understanding and agreeable. Case discussed with physician. - Lab Data Result diagrams: 01/16/20 21:50 01/16/20 21:50 Lab Results 01/16/20 01/16/20 01/16/20 Range/Units 21:50 21:50 21:50 WBC 8.6 (3.8-10.6) k/uL RBC 3.95 (3.80-5.40) m/uL Hgb 12.5 (11.4-16.0) gm/dL Hct 37.5 (34.0-46.0) % MCV 95.0 (80.0-100.0) fL MCH 31.7 (25.0-35.0) pg MCHC 33.3 (31.0-37.0) g/dL RDW 12.4 (11.5-15.5) % Plt Count 274 (150-450) k/uL Neutrophils % 69 % Lymphocytes % 23 % Monocytes % 4 % Eosinophils % 2 % Basophils % 0 % Neutrophils # 5.9 (1.3-7.7) k/uL Lymphocytes # 2.0 (1.0-4.8) k/uL Monocytes # 0.3 (0-1.0) k/uL Eosinophils # 0.2 (0-0.7) k/uL Basophils # 0.0 (0-0.2) k/uL Sodium 138 (137-145) mmol/L Potassium 4.1 (3.5-5.1) mmol/L Chloride 111 H (98-107) mmol/L Carbon Dioxide 20 L (22-30) mmol/L Anion Gap 7 mmol/L BUN 16 (7-17) mg/dL Creatinine 0.80 (0.52-1.04) mg/dL Est GFR (CKD-EPI)AfAm >90 (>60 ml/min/1.73 sqM) Est GFR (CKD-EPI)NonAf >90 (>60 ml/min/1.73 sqM) Glucose 92 (74-99) mg/dL Calcium 9.1 (8.4-10.2) mg/dL Total Bilirubin 0.2 (0.2-1.3) mg/dL AST 31 (14-36) U/L ALT 18 (4-34) U/L Alkaline Phosphatase 41 (38-126) U/L Total Protein 6.4 (6.3-8.2) g/dL Albumin 3.7 (3.5-5.0) g/dL Amylase 32 (30-110) U/L Lipase 117 (23-300) U/L Urine Color Yellow Urine Appearance Slightly Cloudy H (Clear) Urine pH 7.0 (5.0-8.0) Ur Specific [place] 1.010 (1.001-1.035) Urine Protein Negative (Negative) Urine Glucose (UA) Negative (Negative) Urine Ketones Negative (Negative) Urine Blood Negative (Negative) Urine Nitrite Negative (Negative) Urine Bilirubin Negative (Negative) Urine Urobilinogen 0.2 (<2.0) mg/dL Ur Leukocyte Esterase Negative (Negative) Urine RBC 1 (0-5) /hpf Urine WBC 2 (0-5) /hpf Ur Squamous Epith Cells 7 H (0-4) /hpf Amorphous Sediment Moderate H (None) /hpf Urine Mucus Rare H (None) /hpf Disposition Clinical Impression: Migraine, Abdominal pain Disposition: HOME SELF-CARE Condition: Stable Instructions (If sedation given, give patient instructions): Acute Headache (DC) Additional Instructions: Please follow up with primary care. Return to emergency department if symptoms worsen. Is patient prescribed a controlled substance at d/c from ED?: No Referrals: Mahsa Tamayo MD [Primary Care Provider] - 1-2 days Time of Disposition: 23:14
[2020-01-16 22:03] LABS: Basophils % (A) 0 %; Eosinophils # (A) 0.2 k/uL (0-0.7); Eosinophils % (A) 2 %; HCT 37.5 % (34.0-46.0); HGB 12.5 gm/dL (11.4-16.0); Lymphocytes % (A) 23 %; MCH 31.7 pg (25.0-35.0); MCHC 33.3 g/dL (31.0-37.0); Mean Platelet Volume 6.9; Monocytes # (A) 0.3 k/uL (0-1.0); Monocytes % (A) 4 %; Neutrophils # (A) 5.9 k/uL (1.3-7.7); Neutrophils % (A) 69 %; Platelet Count 274 k/uL (150-450); RBC 3.95 m/uL (3.80-5.40); RDW 12.4 % (11.5-15.5); WBC 8.6 k/uL (3.8-10.6)
[2020-01-16 22:21] LABS: ALT 18 U/L (4-34); AST 31 U/L (14-36); African American GFR (CKD) >90 (>60 ml/min/1.73 sqM); Albumin 3.7 g/dL (3.5-5.0); Alkaline Phosphatase 41 U/L (38-126); Amylase 32 U/L (30-110); Anion Gap 7 mmol/L; Blood Urea Nitrogen 16 mg/dL (7-17); Calcium 9.1 mg/dL (8.4-10.2); Carbon Dioxide 20 mmol/L (22-30); Chloride 111 mmol/L (98-107); Glucose 92 mg/dL (74-99); Non-African American GFR(CKD) >90 (>60 ml/min/1.73 sqM); Potassium 4.1 mmol/L (3.5-5.1); Sodium 138 mmol/L (137-145); Total Bilirubin 0.2 mg/dL (0.2-1.3); Total Protein 6.4 g/dL (6.3-8.2)
[2020-01-16] MEDS ORDERED: HYDROmorphone 0.5 MG/0.5 ML SYRINGE IVP STA ×2 (22:28→23:13)
[2020-01-16 22:32] LABS: Amorphous Sediment,Urine Moderate /hpf; Mucus,Urine Rare /hpf; RBC,Urine 1 /hpf (0-5); Squamous Epithelial Cell,Urine 7 /hpf (0-4); WBC,Urine 2 /hpf (0-5)
[2020-01-16 22:35] LABS: Color,Urine Yellow
[2020-01-16 22:36] LABS: Appearance,Urine Slightly Cloudy (Clear); Bilirubin,Urine Negative (Negative); Blood,Urine Negative (Negative); Glucose,Urine (UA) Negative (Negative); Ketones,Urine Negative (Negative); Leukocyte Esterase,Urine Negative (Negative); Nitrite,Urine Negative (Negative); Protein,Urine Negative (Negative); Urobilinogen,Urine 0.2 mg/dL (<2.0)
[2020-01-16 23:03] VITALS: BP 95/56; PULSE 72; RESP 17; TEMP 98.2
[2020-01-16] MEDS ORDERED: ACET/COD 300 MG/30 MG STARTER PACK 6 TAB BTL PO STA (23:47)
[2020-01-16] MEDS ORDERED: ONDANSETRON 4 MG ODT STARTER PACK 2 TAB BTL PO STA (23:47)
== END 2020-01-17 00:01 | disposition home or self-care (01) ==
LOC: EC 20:39
DX: G43.909 Migraine, unspecified, not intractable, without status migrainosus (principal); R10.13 Epigastric pain; M35.00 Sjogren syndrome, unspecified; M54.9 Dorsalgia, unspecified; I10 Essential (primary) hypertension; G40.909 Epilepsy, unspecified, not intractable, without status epilepticus; F41.9 Anxiety disorder, unspecified; F17.200 Nicotine dependence, unspecified, uncomplicated; F32.9 Major depressive disorder, single episode, unspecified; Z79.1 Long term (current) use of non-steroidal anti-inflammatories (NSAID); Z79.899 Other long term (current) drug therapy; Z79.890 Hormone replacement therapy; Z85.841 Personal history of malignant neoplasm of brain; Z98.890 Other specified postprocedural states; Z90.49 Acquired absence of other specified parts of digestive tract
CPT/HCPCS: 36415; 80053; 82150; 83690; 85025; 81001; 99283; 96374; 96375 ×3; 96376; 96361 ×2; J2405; J1885; S0119; C9113; J1170

== ENCOUNTER → 2020-01-30 | Outpatient (CLI) | payer OTHER ==
--- NOTE | 2020-01-30 21:59 | MR ---
EXAMINATION TYPE: MR hip LT wo con, MR femur/thigh LT wo con DATE OF EXAM: 01/30/2020 COMPARISON: Left hip x-ray January 14, 2020. HISTORY: Lt hip/thigh pain, no trauma Standard multiplanar, multisequence MRI departmental protocol Multiplanar, multisequence images of the pelvis focusing on the left hip were acquired. Multiplanar, multisequence imaging of the bilateral femurs is also performed without contrast. FINDINGS: There are tiny symmetric bilateral joint effusions presumed physiologic. Mild 2 moderate ax ial joint space loss with mild acetabular spurring in both hips is present. Femoral head shapes are m aintained bilaterally. No suspicious edema. No serpiginous low T1 signal to suggest avascular necrosi s. Normal fovea is present with few subchondral cysts in the head neck junction. Muscle bulk bilatera l thigh symmetric and felt within normal limits. No groin hernia or adenopathy is identified bilatera lly. Symmetric mild fluid signal level of greater trochanters bilaterally coronal image 10. Visualized bladder within normal limits. Heterogeneous anteverted uterus is seen. No suspicious bowel dilatation. No concerning pelvic fluid collection or adenopathy identified. Bilateral femurs show no suspicious edema. There are symmetric appearance. No suspicious cortical amalia truction or breakthrough identified. Muscle bulk bilaterally is symmetric and within normal limits. N o concerning solid or cystic mass or suspicious fluid collection. No subcutaneous edema. No abnormal skin thickening noted. IMPRESSION: Mild to moderate fairly symmetric degenerative changes in the left hip versus the opposit e right hip as detailed above. MRI left femur thought within normal limits.
== END | disposition home or self-care (01) ==
LOC: RADMRIMAIN 20:10
PROVIDERS: ATTEND Family Medicine
DX: M76.892 Other specified enthesopathies of left lower limb, excluding foot (principal); M24.852 Other specific joint derangements of left hip, not elsewhere classified

== ENCOUNTER 2020-03-22 22:07 | Emergency (ER) | payer OTHER ==
[2020-03-22 22:21] VITALS: BP 108/80; PULSE 86; RESP 18; TEMP 97
--- NOTE | 2020-03-22 22:50 | XR ---
EXAMINATION TYPE: XR ankle complete LT DATE OF EXAM: 03/22/2020 COMPARISON: NONE HISTORY: Ankle pain TECHNIQUE: 3 views FINDINGS: Ankle mortise is anatomic. I see no fracture nor dislocation. Joint spaces are normal. IMPRESSION: Negative left ankle exam. No fracture.
--- NOTE | 2020-03-22 22:51 | XR ---
EXAMINATION TYPE: XR foot complete LT DATE OF EXAM: 03/22/2020 COMPARISON: NONE HISTORY: Foot pain TECHNIQUE: 3 views FINDINGS: Metatarsals are intact. I see no fracture nor dislocation. There is a small plantar calcane al spur. There are no erosions. There is minimal soft tissue swelling of the forefoot. IMPRESSION: Soft tissue swelling. No fracture seen.
[2020-03-22] MEDS ORDERED: KETOROLAC 30 MG/ML 1 ML VIAL IM STA (23:42)
--- NOTE | 2020-03-22 23:54 | ED ---
General Adult HPI - General Source: patient, RN notes reviewed Mode of arrival: wheelchair Limitations: no limitations <Ryan Aponte - Last Filed: 03/23/20 01:42> <Lo Veliz - Last Filed: 03/24/20 01:30> - General Chief complaint: Extremity Injury, Lower Stated complaint: Foot injury Time Seen by Provider: 03/22/20 23:10 - History of Present Illness Initial comments: 40-year-old female presents to the emergency determine for chief complaint of left foot and ankle pain. Patient states she fell down about 3 [address] Patient did not hit her head. She is not on blood thinners. Patient states is painful to put weight on the foot. She denies any other injuries.Patient has no other complaints at this time including shortness of breath, chest pain, abdominal pain, nausea or vomiting, headache, or visual changes. (Ryan Aponte) - Related Data Home Medications Medication Instructions Recorded Confirmed Cyanocobalamin (Vitamin B-12) 1,000 mcg PO DAILY 08/05/17 05/22/19 [Vitamin B-12] Cyclobenzaprine [Flexeril] 10 mg PO TID PRN 08/05/17 05/22/19 Ergocalciferol [Vitamin D2] 50,000 unit PO ESQUIVEL 08/05/17 05/22/19 Gabapentin [Neurontin] 600 mg PO TID 08/05/17 05/22/19 Levothyroxine Sodium [Synthroid] 125 mcg PO DAILY 08/05/17 05/22/19 Losartan/Hydrochlorothiazide 1 tab PO DAILY 08/05/17 05/22/19 [Losartan-Hctz 100-25 mg Tab] Pilocarpine [Salagen] 5 mg PO BID 08/05/17 05/22/19 Triamterene/Hydrochlorothiazid 1 cap PO DAILY 08/05/17 05/22/19 [Dyazide 37.5-25 Capsule] amLODIPine [Norvasc] 5 mg PO BID 08/05/17 05/22/19 Meloxicam [Mobic] 15 mg PO BID 05/22/19 05/22/19 Topiramate [Topamax] 75 mg PO BID 05/22/19 05/22/19 traZODone HCL [Desyrel] 150 mg PO HS 05/22/19 05/22/19 Previous Rx's Medication Instructions Recorded Ibuprofen [Motrin] 600 mg PO Q6HR PRN #30 tab 08/09/17 levETIRAcetam [Keppra] 500 mg PO BID #60 tab 12/02/17 Ketorolac [Toradol] 10 mg PO Q6HR #15 tab 05/22/19 Ketorolac [Toradol] 10 mg PO Q12H PRN 5 Days #10 tab 01/14/20 levETIRAcetam [Keppra] 750 mg PO Q12HR 7 Days #14 tab 01/14/20 Allergies Allergy/AdvReac Type Severity Reaction Status Date / Time No Known Allergies Allergy Verified 01/16/20 21:15 Review of Systems ROS Other: All systems not noted in ROS Statement are negative. <Ryan Aponte P - Last Filed: 03/23/20 01:42> ROS Other: All systems not noted in ROS Statement are negative. <Lo Veliz - Last Filed: 03/24/20 01:30> ROS Statement: Those systems with pertinent positive or pertinent negative responses have been documented in the HPI. Past Medical History Past Medical History: Fibromyalgia, Hypertension, Seizure Disorder Additional Past Medical History / Comment(s): brain stem tumor, surgan syndrome History of Any Multi-Drug Resistant Organisms: None Reported Past Surgical History: Cholecystectomy, Uterine Ablation Additional Past Surgical History / Comment(s): brain tumor removed 2014 Past Psychological History: Anxiety, Depression Smoking Status: Current every day smoker Past Alcohol Use History: None Reported Past Drug Use History: None Reported <Ryan Aponte P - Last Filed: 03/23/20 01:42> General Exam Limitations: no limitations General appearance: alert, in no apparent distress Head exam: Present: atraumatic, normocephalic, normal inspection Eye exam: Present: normal appearance, PERRL, EOMI. Absent: scleral icterus, conjunctival injection, periorbital swelling ENT exam: Present: normal exam, mucous membranes moist Neck exam: Present: normal inspection, full ROM. Absent: tenderness, meningismus, lymphadenopathy Respiratory exam: Present: normal lung sounds bilaterally. Absent: respiratory distress, wheezes, rales, rhonchi, stridor Cardiovascular Exam: Present: regular rate, normal rhythm, normal heart sounds. Absent: systolic murmur, diastolic murmur, rubs, gallop, clicks GI/Abdominal exam: Present: soft, normal bowel sounds. Absent: distended, tenderness, guarding, rebound, rigid Extremities exam: Present: tenderness (Tenderness along the distal first metatarsal as well as left great toe. No fifth metatarsal tenderness. No ankle tenderness.), normal capillary refill (Capillary refill less than 2 seconds, DP pulse 2+ in the left lower extremity.), other (Sensation intact in the left foot. ). Absent: full ROM (Patient is able to move all toes of the left foot as well as dorsi and plantarflex the left ankle however does have some limited range of motion secondary to pain.), joint swelling (No significant edema noted of the left foot or ankle.), calf tenderness Neurological exam: Present: alert <Ryan Aponte - Last Filed: 03/23/20 01:42> Course Vital Signs 03/22/20 22:16 Temperature 97 F L Pulse Rate 86 Respiratory 18 Rate Blood Pressure 108/80 O2 Sat by Pulse 98 Oximetry Procedures - Orthopedic Splinting/Casting Injury #1 Side: left Lower Extremity Injury Location: short leg Lower Extremity Immobilizer: posterior splint Other Orthopedic Equipment: crutches <Ryan Aponte - Last Filed: 03/23/20 01:42> - Orthopedic Splinting/Casting Injury #1 Additional Comments: Neurovascular status intact after splint applied (Ryan Aponte) Medical Decision Making <Ryan Aponte - Last Filed: 03/23/20 01:42> <Lo Veliz - Last Filed: 03/24/20 01:30> - Medical Decision Making On presentation patient complained of left foot and ankle pain. X-ray of the left ankle is negative. X-ray of the left foot shows soft tissue swelling on the forefoot. No fracture seen. I did place a posterior splint because patient could not bear weight on the left foot. After placement of splint patient started to complain of mid and low back pain after a fall. I did palpate her thoracic and lumbar spinous she had minimal generalized tenderness. I recommended an x-ray at this point. Patient initially agreed but then refused stating "she just wants to go home." I did discuss that I cannot evaluate for fracture and she is understanding of this. She will follow up with primary care return if she has any worsening symptoms. (Ryan Aponte) I was available for consultation in the emergency department. The history and physical exam were done by the midlevel provider. I was consulted for this patients care. I reviewed the case with the midlevel provider and based on their presentation of the patient, I agree with the assessment, medical decision making and plan of care as documented. Chart was dictated using [employer] dictation software. Attempts were made to cor rect any dictation errors however some typographical errors may persist. The patient was seen during the [facility] emergency due to the Covid-19 pandemic. (Lo Veliz) Disposition Is patient prescribed a controlled substance at d/c from ED?: No Time of Disposition: 23:53 <Ryan Aponte - Last Filed: 03/23/20 01:42> <Lo Veliz - Last Filed: 03/24/20 01:30> Clinical Impression: Foot pain, left Disposition: HOME SELF-CARE Condition: Good Instructions (If sedation given, give patient instructions): Foot Contusion (ED) Additional Instructions: Please take Tylenol for pain. Follow up with primary care and orthopedics in one to 2 days. Return to the emergency department for any worsening symptoms. Referrals: Mahsa Tamayo MD [Primary Care Provider] - 1-2 days Trini Lopez DO [Doctor of Osteopathic Medicine] - 1-2 days
== END 2020-03-23 00:19 | disposition home or self-care (01) ==
LOC: EC 22:07
DX: M79.672 Pain in left foot (principal); M25.572 Pain in left ankle and joints of left foot; M54.5 Low back pain; I10 Essential (primary) hypertension; G40.909 Epilepsy, unspecified, not intractable, without status epilepticus; F41.9 Anxiety disorder, unspecified; F32.9 Major depressive disorder, single episode, unspecified; F17.200 Nicotine dependence, unspecified, uncomplicated; Z79.1 Long term (current) use of non-steroidal anti-inflammatories (NSAID); Z79.890 Hormone replacement therapy; Z79.899 Other long term (current) drug therapy; W10.9XXA Fall (on) (from) unspecified stairs and steps, initial encounter
CPT/HCPCS: 73610; 73630; 99283; 29515; 96372; J1885

== ENCOUNTER 2020-06-08 04:36 | Inpatient (IN) | payer MEDICAID, OTHER ==
--- NOTE | 2020-06-08 05:18 | ED ---
Psych HPI - General Chief Complaint: Psychiatric Symptoms Stated Complaint: mental health Time Seen by Provider: 06/08/20 04:59 Source: patient, family Mode of arrival: ambulatory - History of Present Illness Initial Comments: This patient is a 40-year-old woman with some underlying depression who states that her mood has worsened over the past few weeks and that over the past few days she has been having persistent thoughts of suicide. MD Complaint: suicidal ideation, feels depressed -: week(s) Associated Psychiatric Symptoms: depression, suicidal ideation History of same: Yes Quality: getting worse Improves With: none Worsens With: none - Related Data Home Medications Medication Instructions Recorded Confirmed Cyanocobalamin (Vitamin B-12) 1,000 mcg PO DAILY 08/05/17 05/22/19 [Vitamin B-12] Cyclobenzaprine [Flexeril] 10 mg PO TID PRN 08/05/17 05/22/19 Ergocalciferol [Vitamin D2] 50,000 unit PO ESQUIVEL 08/05/17 05/22/19 Gabapentin [Neurontin] 600 mg PO TID 08/05/17 05/22/19 Levothyroxine Sodium [Synthroid] 125 mcg PO DAILY 08/05/17 05/22/19 Losartan/Hydrochlorothiazide 1 tab PO DAILY 08/05/17 05/22/19 [Losartan-Hctz 100-25 mg Tab] Pilocarpine [Salagen] 5 mg PO BID 08/05/17 05/22/19 Triamterene/Hydrochlorothiazid 1 cap PO DAILY 08/05/17 05/22/19 [Dyazide 37.5-25 Capsule] amLODIPine [Norvasc] 5 mg PO BID 08/05/17 05/22/19 Meloxicam [Mobic] 15 mg PO BID 05/22/19 05/22/19 Topiramate [Topamax] 75 mg PO BID 05/22/19 05/22/19 traZODone HCL [Desyrel] 150 mg PO HS 05/22/19 05/22/19 Previous Rx's Medication Instructions Recorded Ibuprofen [Motrin] 600 mg PO Q6HR PRN #30 tab 08/09/17 levETIRAcetam [Keppra] 500 mg PO BID #60 tab 12/02/17 Ketorolac [Toradol] 10 mg PO Q6HR #15 tab 05/22/19 Ketorolac [Toradol] 10 mg PO Q12H PRN 5 Days #10 tab 01/14/20 levETIRAcetam [Keppra] 750 mg PO Q12HR 7 Days #14 tab 01/14/20 Allergies Allergy/AdvReac Type Severity Reaction Status Date / Time No Known Allergies Allergy Verified 06/08/20 04:49 Review of Systems ROS Statement: Those systems with pertinent positive or pertinent negative responses have been documented in the HPI. ROS Other: All systems not noted in ROS Statement are negative. Constitutional: Denies: fever, weakness Eyes: Denies: vision change Respiratory: Denies: cough, dyspnea Cardiovascular: Denies: chest pain, palpitations, syncope Gastrointestinal: Denies: abdominal pain, vomiting, diarrhea Skin: Denies: rash Neurological: Denies: headache, weakness, numbness Psychiatric: Reports: depression, suicidal thoughts. Denies: auditory hallucinations, visual hallucinations, homicidal thoughts Past Medical History Past Medical History: Fibromyalgia, Hypertension, Rheumatoid Arthritis (RA), Seizure Disorder Additional Past Medical History / Comment(s): brain stem tumor, surgan syndrome, DDD History of Any Multi-Drug Resistant Organisms: None Reported Past Surgical History: Section, Cholecystectomy, Uterine Ablation Additional Past Surgical History / Comment(s): brain tumor removed 2015, tummy tuck , C section X-5 Past Psychological History: Anxiety, Depression Smoking Status: Current every day smoker Past Alcohol Use History: Occasional Past Drug Use History: None Reported General Exam Limitations: no limitations General appearance: alert, in no apparent distress, anxious Head exam: Present: atraumatic, normocephalic Eye exam: Present: normal appearance. Absent: scleral icterus, conjunctival injection Neck exam: Present: normal inspection Respiratory exam: Present: normal lung sounds bilaterally. Absent: respiratory distress, wheezes, rales, rhonchi, stridor Cardiovascular Exam: Present: regular rate, normal rhythm, normal heart sounds. Absent: systolic murmur, diastolic murmur, rubs, gallop GI/Abdominal exam: Present: soft. Absent: distended, tenderness, guarding, rebound, rigid, mass Extremities exam: Present: normal inspection, normal capillary refill. Absent: pedal edema, calf tenderness Back exam: Present: normal inspection. Absent: CVA tenderness (R), CVA tend erness (L) Neurological exam: Present: alert Psychiatric exam: Present: depressed, suicidal ideation. Absent: agitated, anxious, flat affect, manic, homicidal ideation Skin exam: Present: warm, dry, intact, normal color. Absent: rash Course Vital Signs 06/08/20 04:49 Temperature 97.7 F Pulse Rate 95 Respiratory 18 Rate Blood Pressure 131/98 O2 Sat by Pulse 94 L Oximetry Medical Decision Making - Lab Data Result diagrams: 06/08/20 06:58 06/08/20 06:58 Lab Results 06/08/20 06/08/20 06/08/20 Range/Units 05:16 05:16 06:58 WBC 5.1 (3.8-10.6) k/uL RBC 3.92 (3.80-5.40) m/uL Hgb 12.6 (11.4-16.0) gm/dL Hct 37.9 (34.0-46.0) % MCV 96.7 (80.0-100.0) fL MCH 32.1 (25.0-35.0) pg MCHC 33.2 (31.0-37.0) g/dL RDW 12.8 (11.5-15.5) % Plt Count 299 (150-450) k/uL Sodium (137-145) mmol/L Potassium (3.5-5.1) mmol/L Chloride (98-107) mmol/L Carbon Dioxide (22-30) mmol/L Anion Gap mmol/L BUN (7-17) mg/dL Creatinine (0.52-1.04) mg/dL Est GFR (CKD-EPI)AfAm (>60 ml/min/1.73 sqM) Est GFR (CKD-EPI)NonAf (>60 ml/min/1.73 sqM) Glucose (74-99) mg/dL Calcium (8.4-10.2) mg/dL Total Bilirubin (0.2-1.3) mg/dL AST (14-36) U/L ALT (4-34) U/L Alkaline Phosphatase (38-126) U/L Total Protein (6.3-8.2) g/dL Albumin (3.5-5.0) g/dL Urine Color Yellow Urine Appearance Cloudy H (Clear) Urine pH 6.0 (5.0-8.0) Ur Specific [place] 1.009 (1.001-1.035) Urine Protein Negative (Negative) Urine Glucose (UA) Negative (Negative) Urine Ketones Negative (Negative) Urine Blood Trace H (Negative) Urine Nitrite Negative (Negative) Urine Bilirubin Negative (Negative) Urine Urobilinogen <2.0 (<2.0) mg/dL Ur Leukocyte Esterase Small H (Negative) Urine RBC 1 (0-5) /hpf Urine WBC 3 (0-5) /hpf Ur Squamous Epith Cells 7 H (0-4) /hpf Urine Bacteria Rare H (None) /hpf Hyaline Casts 1 (0-2) /lpf Urine Mucus Rare H (None) /hpf Urine HCG, Qual Not Detected (Not Detectd) Urine Opiates Screen Detected H (NotDetected) Ur Oxycodone Screen Not Detected (NotDetected) Urine Methadone Screen Not Detected (NotDetected) Ur Propoxyphene Screen Not Detected (NotDetected) Ur Barbiturates Screen Detected H (NotDetected) U Tricyclic Antidepress Not Detected (NotDetected) Ur Phencyclidine Scrn Not Detected (NotDetected) Ur Amphetamines Screen Not Detected (NotDetected) U Methamphetamines Scrn Not Detected (NotDetected) U Benzodiazepines Scrn Not Detected (NotDetected) Urine Cocaine Screen Not Detected (NotDetected) U Marijuana (THC) Screen Not Detected (NotDetected) 06/08/20 Range/Units 06:58 WBC (3.8-10.6) k/uL RBC (3.80-5.40) m/uL Hgb (11.4-16.0) gm/dL Hct (34.0-46.0) % MCV (80.0-100.0) fL MCH (25.0-35.0) pg MCHC (31.0-37.0) g/dL RDW (11.5-15.5) % Plt Count (150-450) k/uL Sodium 141 (137-145) mmol/L Potassium 3.5 (3.5-5.1) mmol/L Chloride 110 H (98-107) mmol/L Carbon Dioxide 21 L (22-30) mmol/L Anion Gap 10 mmol/L BUN 7 (7-17) mg/dL Creatinine 0.82 (0.52-1.04) mg/dL Est GFR (CKD-EPI)AfAm >90 (>60 ml/min/1.73 sqM) Est GFR (CKD-EPI)NonAf 90 (>60 ml/min/1.73 sqM) Glucose 81 (74-99) mg/dL Calcium 8.9 (8.4-10.2) mg/dL Total Bilirubin 0.6 (0.2-1.3) mg/dL AST 21 (14-36) U/L ALT 12 (4-34) U/L Alkaline Phosphatase 37 L (38-126) U/L Total Protein 6.3 (6.3-8.2) g/dL Albumin 4.0 (3.5-5.0) g/dL Urine Color Urine Appearance (Clear) Urine pH (5.0-8.0) Ur Specific [place] (1.001-1.035) Urine Protein (Negative) Urine Glucose (UA) (Negative) Urine Ketones (Negative) Urine Blood (Negative) Urine Nitrite (Negative) Urine Bilirubin (Negative) Urine Urobilinogen (<2.0) mg/dL Ur Leukocyte Esterase (Negative) Urine RBC (0-5) /hpf Urine WBC (0-5) /hpf Ur Squamous Epith Cells (0-4) /hpf Urine Bacteria (None) /hpf Hyaline Casts (0-2) /lpf Urine Mucus (None) /hpf Urine HCG, Qual (Not Detectd) Urine Opiates Screen (NotDetected) Ur Oxycodone Screen (NotDetected) Urine Methadone Screen (NotDetected) Ur Propoxyphene Screen (NotDetected) Ur Barbiturates Screen (NotDetected) U Tricyclic Antidepress (NotDetected) Ur Phencyclidine Scrn (NotDetected) Ur Amphetamines Screen (NotDetected) U Methamphetamines Scrn (NotDetected) U Benzodiazepines Scrn (NotDetected) Urine Cocaine Screen (NotDetected) U Marijuana (THC) Screen (NotDetected) Disposition Clinical Impression: Mood disorder, Acute anxiety Disposition: ADMITTED IP TO THIS [facility] Condition: Good Is patient prescribed a controlled substance at d/c from ED?: No Referrals: Mahsa Tamayo MD [Primary Care Provider] - 1-2 days
[2020-06-08 05:53] LABS: Appearance,Urine Cloudy (Clear); Bacteria,Urine Rare /hpf; Bilirubin,Urine Negative (Negative); Blood,Urine Trace (Negative); Color,Urine Yellow; Glucose,Urine (UA) Negative (Negative); Hyaline Casts,Urine 1 /lpf (0-2); Ketones,Urine Negative (Negative); Leukocyte Esterase,Urine Small (Negative); Mucus,Urine Rare /hpf; Nitrite,Urine Negative (Negative); Protein,Urine Negative (Negative); RBC,Urine 1 /hpf (0-5); Specific Gravity,Urine 1.009 (1.001-1.035); Squamous Epithelial Cell,Urine 7 /hpf (0-4); Urobilinogen,Urine <2.0 mg/dL (<2.0); WBC,Urine 3 /hpf (0-5)
[2020-06-08 05:54] LABS: Amphetamine Screen,Urine Not Detected (NotDetected); Barbiturate Screen,Urine Detected (NotDetected); Benzodiazepines Screen,Urine Not Detected (NotDetected); Cocaine Screen,Urine Not Detected (NotDetected); Methadone Screen, Urine Not Detected (NotDetected); Opiate Screen,Urine Detected (NotDetected); Oxycodone Screen, Urine Not Detected (NotDetected); Phencyclidine Screen,Urine Not Detected (NotDetected); Tricyclic Antidepressant,Urine Not Detected (NotDetected); Urn Cannabinoid Scrn Not Detected (NotDetected)
[2020-06-08] MEDS ORDERED: IBUPROFEN 600 MG TAB PO STA (06:41)
[2020-06-08] MEDS ORDERED: Acetaminophen-Codeine 300-30mg TAB PO STA (06:42)
[2020-06-08 07:06] LABS: HCT 37.9 % (34.0-46.0); HGB 12.6 gm/dL (11.4-16.0); MCH 32.1 pg (25.0-35.0); MCHC 33.2 g/dL (31.0-37.0); MCV 96.7 fL (80.0-100.0); Mean Platelet Volume 6.6; Platelet Count 299 k/uL (150-450); RBC 3.92 m/uL (3.80-5.40); RDW 12.8 % (11.5-15.5); WBC 5.1 k/uL (3.8-10.6)
[2020-06-08 07:23] LABS: ALT 12 U/L (4-34); AST 21 U/L (14-36); African American GFR (CKD) >90 (>60 ml/min/1.73 sqM); Alkaline Phosphatase 37 U/L (38-126); Anion Gap 10 mmol/L; Blood Urea Nitrogen 7 mg/dL (7-17); Calcium 8.9 mg/dL (8.4-10.2); Carbon Dioxide 21 mmol/L (22-30); Chloride 110 mmol/L (98-107); Glucose 81 mg/dL (74-99); Non-African American GFR(CKD) 90 (>60 ml/min/1.73 sqM); Potassium 3.5 mmol/L (3.5-5.1); Sodium 141 mmol/L (137-145); Total Bilirubin 0.6 mg/dL (0.2-1.3); Total Protein 6.3 g/dL (6.3-8.2)
[2020-06-08] MEDS: buPROPion SR 150 MG TABLET.ER PO SCH (10:29)
[2020-06-08] MEDS: CYANOCOBALAMIN 500 MCG TAB PO SCH (10:29)
[2020-06-08] MEDS: ERGOCALCIFEROL 50,000 UNIT CAP PO SCH (10:29)
[2020-06-08] MEDS: LEVOTHYROXINE 125 MCG TAB PO SCH (10:30)
[2020-06-08] MEDS: TRIAMTERENE-HCTZ 37.5-25MG 1 EACH CAP PO SCH (10:31)
[2020-06-08] MEDS: LOSARTAN-HCTZ 50-12.5 MG 1 EACH TAB PO SCH (10:31)
[2020-06-08] MEDS: TOPIRAMATE 100 MG TAB PO SCH ×2 (10:31→20:49)
[2020-06-08] MEDS: MELOXICAM 7.5 MG TAB PO SCH (10:31)
[2020-06-08] MEDS ORDERED: DULoxetine HCL 30 MG CAPSULE.DR PO STA (10:33)
[2020-06-08] MEDS ORDERED: clonazePAM 1 MG TAB PO STA (10:33)
[2020-06-08] MEDS ORDERED: HYDROcodone/APAP 5-325MG 1 EACH TAB PO STA (10:33)
[2020-06-08] MEDS: GABAPENTIN 300 MG CAP PO SCH ×3 (10:39→20:51)
[2020-06-08] MEDS ORDERED: ZIPRASIDONE 20 MG VIAL IM PRN (10:54)
[2020-06-08] MEDS ORDERED: ACETAMINOPHEN TAB 325 MG TAB PO PRN (10:54)
[2020-06-08] MEDS ORDERED: MAG HYDROX/AL HYDROX/SIMETH 30 ML CUP PO PRN (10:54)
[2020-06-08] MEDS: LORazepam 1 MG TAB PO PRN (13:39)
[2020-06-08] MEDS: NICOTINE 14MG/24HR PATCH TRANSDERM SCH (13:41)
[2020-06-08] MEDS ORDERED: HYDROcodone/APAP 5-325MG 1 EACH TAB PO PRN (15:35)
[2020-06-08] MEDS ORDERED: hydrOXYzine HCL 25 MG TAB PO PRN (15:35)
[2020-06-08] MEDS ORDERED: BUTALB/APAP/CAFF 50-325-40MG TAB PO PRN (15:35)
[2020-06-08] MEDS: clonazePAM 1 MG TAB PO SCH ×2 (15:57→20:51)
[2020-06-08] MEDS ORDERED: traZODone HCL 100 MG TAB PO PRN (17:32)
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
[2020-06-08] MEDS ORDERED: CYCLOBENZAPRINE 10 MG TAB PO SCH (21:00)
[2020-06-08] MEDS ORDERED: IBUPROFEN 600 MG TAB PO PRN (21:45)
[2020-06-09] MEDS: LEVOTHYROXINE 125 MCG TAB PO SCH (06:32)
[2020-06-09] MEDS: LORazepam 1 MG TAB PO PRN (06:43)
[2020-06-09 08:50] LABS: ALT 14 U/L (4-34); AST 23 U/L (14-36); African American GFR (CKD) >90 (>60 ml/min/1.73 sqM); Albumin 4.6 g/dL (3.5-5.0); Alkaline Phosphatase 48 U/L (38-126); Anion Gap 10 mmol/L; Blood Urea Nitrogen 9 mg/dL (7-17); Calcium 9.7 mg/dL (8.4-10.2); Carbon Dioxide 24 mmol/L (22-30); Chloride 105 mmol/L (98-107); Glucose 87 mg/dL (74-99); Non-African American GFR(CKD) 79 (>60 ml/min/1.73 sqM); Potassium 3.6 mmol/L (3.5-5.1); Sodium 139 mmol/L (137-145); Total Bilirubin 0.7 mg/dL (0.2-1.3); Total Protein 7.3 g/dL (6.3-8.2)
[2020-06-09] MEDS: buPROPion SR 150 MG TABLET.ER PO SCH (08:53)
[2020-06-09] MEDS: ARIPiprazole 5 MG TAB PO SCH (08:53)
[2020-06-09] MEDS: CYANOCOBALAMIN 500 MCG TAB PO SCH (08:54)
[2020-06-09] MEDS: clonazePAM 1 MG TAB PO SCH ×3 (08:54→21:51)
[2020-06-09] MEDS: GABAPENTIN 300 MG CAP PO SCH ×3 (08:54→21:51)
[2020-06-09] MEDS: LOSARTAN-HCTZ 50-12.5 MG 1 EACH TAB PO SCH (08:55)
[2020-06-09] MEDS: MELOXICAM 7.5 MG TAB PO SCH (08:55)
[2020-06-09] MEDS: TOPIRAMATE 100 MG TAB PO SCH ×2 (08:56→21:51)
[2020-06-09] MEDS: NICOTINE 14MG/24HR PATCH TRANSDERM SCH (08:56)
[2020-06-09] MEDS: TRIAMTERENE-HCTZ 37.5-25MG 1 EACH CAP PO SCH (08:57)
[2020-06-09] MEDS: CYCLOBENZAPRINE 10 MG TAB PO PRN (10:00)
[2020-06-09] MEDS: PILOCARPINE 5 MG TAB PO PRN (11:53)
[2020-06-09] MEDS: HYDROcodone/APAP 5-325MG 1 EACH TAB PO PRN ×2 (11:54→21:53)
--- NOTE | 2020-06-09 12:30 | P.MDCNMH ---
History of Present Illness H&P Date: 06/09/20 Chief Complaint: Medical management History of Present Illness This is a 40-year-old female patient of Dr. wang with past medical history of fibromyalgia, hypertension, rheumatoid arthritis under the care of Dr. Mustafa, seizure disorder, hypothyroidism, brain stem tumor, Sjogren syndrome, degenerative disc disease, chronic pain under the care of pain management with Dr. Galvan at [facility]. Patient also follows with Dr. Vital orthopedic surgeon regarding hip impingement and recommended to use a cane. Patient also has history of tobacco use and dependence. Patient states that yesterday she had a mental breakdown. She was in the closet in the corner on the floor crying and screaming and her son brought her out into the living room. She then was on the floor in front of the front door crying. She states she has been under a lot of stress related to multiple issues including relationship issues, medical issues, chronic pain. She states she was to start the day treatment program today. She follows with a psychiatrist with [facility] and a counselor on a regular basis. At this time, patient is complaining of pain as her main issue. She denies having any nausea. She also states she has chronic migraine headaches. Patient states she has been started on the Westover but does not feel that is enough to cover her pain. We will increase every 6 hours if okay with psychiatry. Toradol has also been resumed the patient should only take Toradol and not mix with other nonsteroidal anti- inflammatories. Review of Systems Constitutional: No fever, no chills, no night sweats. No weight change. No weakness, fatigue or lethargy. No daytime sleepiness. Reports chronic pain. EENT: No headache. No blurred vision or double vision, no loss of vision. No loss of Hearing, no ringing in the ears, no dizziness. No nasal drainage or congestion. No epistaxis. No sore throat. Lungs: No shortness of breath, cough, no sputum production. No wheezing. Cardiovascular: No chest pain, no lower extremity edema. No palpitations. No paroxysmal nocturnal dyspnea. No orthopnea. No lightheadedness or dizziness. No syncopal episodes. Abdominal: No abdominal pain. No nausea, vomiting. No diarrhea. No constipation. No bloody or tarry stools.. No loss of appetite. Genitourinary: No dysuria, increased frequency, urgency. No urinary retention. Musculoskeletal: No myalgias. No muscle weakness, no gait dysfunction, no frequ ent falls. No back pain. No neck pain. Integumentary: No wounds, no lesions. No rash or pruritus. No unusual bruising. No change in hair or nails. Neurologic: No aphasia. No facial droop. No change in mentation. No head injury. No headache. No paralysis. No paresthesia. Psychiatric: Reports depression. Reports anxiety. Reports mood swings. Endocrine: No abnormal blood sugars. No weight change. No excessive sweating or thirst. No cold intolerance. Physical Examination Gen: This is a 40-year-old female. Patient appears to be in no acute distress. HEENT: Head is atraumatic, normocephalic. Pupils equal, round. Sclerae is anicteric. NECK: Supple. No JVD. No lymphadenopathy. No thyromegaly. LUNGS: Clear to auscultation. No wheezes or rhonchi. No intercostal retraction s. HEART: Regular rate and rhythm. No murmur. ABDOMEN: Soft. Bowel sounds are present. No masses. No tenderness. EXTREMITIES: No pedal edema. No calf tenderness. NEUROLOGICAL: Patient is awake, alert and oriented x3. Cranial nerves 2 through 12 are grossly intact. Assessment and Plan 1. Depression, psychotic episode. Patient admitted to the mental health unit. Continue current plan per psychiatrist. 2. Self-reported history of generalized anxiety disorder and PTSD. 3. Fibromyalgia. 10 mg twice daily as needed, Westover 5/325 mg increased to 1 every 6 hours versus every 12 hours if okay with psychiatry, gabapentin 600 mg 3 times daily, nonsteroidal anti-inflammatory. 4. Hypertension. Continue hydrochlorothiazide/losartan to daily and Dyazide daily. 5. Rheumatoid arthritis, stable. 6. Seizure disorder and brain stem tumor. Continue Keppra 750 mg every 12 hours, Topamax 100 mg twice daily. 7. Degenerative disc disease and chronic pain. 8. Tobacco use and dependence. Continue nicotine patch. 9. Sjogren syndrome. Continue pilocarpine. 10. Hypothyroidism. Continue levothyroxine 125 g daily. 11. COVID-19 infection not present. Patient to follow-up with Dr. Roni after discharge. Impression and plan of care have been directed as dictated by the signing physician. Aracely Ramos nurse practitioner acting as scribe for signing physician. Past Medical History Past Medical History: Fibromyalgia, Hypertension, Memory Impairment, Rheumatoid Arthritis (RA), Seizure Disorder, Thyroid Disorder Additional Past Medical History / Comment(s): brain stem tumor, surgan syndrome, DDD, sleep disorder, degenerative joint History of Any Multi-Drug Resistant Organisms: None Reported Past Surgical History: Section, Cholecystectomy, Uterine Ablation Additional Past Surgical History / Comment(s): brain tumor removed 2014, [facility]enn[facility] , C section X-5 Past Anesthesia/Blood Transfusion Reactions: No Reported Reaction Smoking Status: Current every day smoker Medications and Allergies Home Medications Medication Instructions Recorded Confirmed Type Cyanocobalamin (Vitamin B-12) 1,000 mcg PO DAILY 08/05/17 06/08/20 History [Vitamin B-12] Cyclobenzaprine [Flexeril] 10 mg PO BID 08/05/17 06/08/20 History Ergocalciferol [Vitamin D2] 50,000 unit PO ESQUIVEL 08/05/17 06/08/20 History Gabapentin [Neurontin] 600 mg PO TID 08/05/17 06/08/20 History Levothyroxine Sodium [Synthroid] 125 mcg PO DAILY 08/05/17 06/08/20 History Losartan/Hydrochlorothiazide 1 tab PO DAILY 08/05/17 06/08/20 History [Losartan-Hctz 100-25 mg Tab] Pilocarpine [Salagen] 5 mg PO BID PRN 08/05/17 06/08/20 History Triamterene/Hydrochlorothiazid 1 cap PO DAILY 08/05/17 06/08/20 History [Dyazide 37.5-25 Capsule] Ibuprofen [Motrin] 600 mg PO Q6HR PRN #30 tab 08/09/17 06/08/20 Rx Meloxicam [Mobic] 15 mg PO BID 05/22/19 06/08/20 History Topiramate [Topamax] 100 mg PO BID 05/22/19 06/08/20 History traZODone HCL [Desyrel] 200 mg PO HS 05/22/19 06/08/20 History Butalb/Acetaminophen/Caffeine 1 - 2 each PO Q4H PRN 06/08/20 06/08/20 History [Fioricet 50-325-40] DULoxetine HCL [Cymbalta] 30 mg PO HS 06/08/20 06/08/20 History DULoxetine HCL [Cymbalta] 60 mg PO HS 06/08/20 06/08/20 History HYDROcodone/APAP 5-325MG [Westover 1 tab PO Q12H PRN 06/08/20 06/08/20 History 5-325] Ketorolac [Toradol] 10 mg PO Q6HR PRN 06/08/20 06/08/20 History buPROPion XL [Wellbutrin Xl] 300 mg PO DAILY 06/08/20 06/08/20 History clonazePAM [KlonoPIN] 1 mg PO TID 06/08/20 06/08/20 History hydrOXYzine HCL [Atarax] 50 mg PO TID PRN 06/08/20 06/08/20 History Allergies Allergy/AdvReac Type Severity Reaction Status Date / Time No Known Allergies Allergy Verified 06/08/20 12:37 Physical Exam Vitals: Vital Signs Temp Pulse Pulse Resp BP BP Pulse Ox 06/08/20 13:42 98.3 F 06/08/20 12:00 97.4 F L 91 18 116/83 97 06/08/20 10:27 81 18 115/73 99 Cranial Nerve Examination - Cranial Nerves Cranial Nerve II- Optic: Intact Cranial Nerve III- Oculomotor: Intact Cranial Nerve IV- Trochlear: Intact Cranial Nerve V- Trigeminal: Intact Cranial Nerve - Abducens: Intact Cranial Nerve VII- Facial: Intact Cranial Nerve VIII- Auditory: Intact Cranial Nerve IX- Glossopharyngeal: Intact Cranial Nerve X- Vagus: Intact Cranial Nerve XI- Accessory: Intact Cranial Nerve XII- Hypoglossal: Intact Results CBC & Chem 7: 06/08/20 06:58 06/09/20 07:51
--- NOTE | 2020-06-09 15:40 | P.PN ---
Progress Note - Text Progress Note Date: 06/09/20 Clinical Problems: Unspecified mood disorder, rule out major depressive disorder, rule out bipolar disorder current episode depressed without psychotic features, rule out posttraumatic stress disorder, rule out somatoform disorder, cluster B personality disorder Interim history: I reviewed the medical record, interviewed the patient and discussed her treatment and treatment plan during team meeting. She had multiple physical and emotional complaints. She listed a broad range of diagnoses including fibromyalgia, hypertension, rheumatoid arthritis, seizure disorder, chronic pain secondary to degenerative disc disease, brain cyst, PTSD, depression and general anxiety disorder. She complained of chronic pain and anxiety. During interview the primary source of her distress appears to be family and social issues. She talked about ongoing conflict with her children, issues with the landlord, issues with the children's fathers and conflict with her boyfriend. She describes screaming and yelling at the children and appears to believe that her children are the primary source of her distress. The 20-year-old who was just released from retirement after serving 6 months for substance related charges. The 18-year-old recently graduated from high school. She received a notice from the apartment management that he must vacate because he is not on the lease. She described ongoing conflict with her 13-year-old. Mental status exam: She presented as a disheveled-appearing 40-year-old [place] ucasian female who was markedly irritable and angry. She made eye contact and appeared to attend to interview. She had a distressed and angry facial expression. She showed no abnormality of psychomotor activity. His speech was spontaneous and had slightly increase rhythm and volume. Her affect was dysphoric and primarily angry. At times, anger was intense and inappropriate. She expressed suicidal ideation and wishes but denied intent or plan. She denied homicidal ideation. She expressed feelings of hopelessness, helplessness and worthlessness. She ruminated about her multiple's interpersonal and social issues. She did not express ideas reference, paranoid ideation or delusions. Her thinking was concrete. Associations were coherent and goal directed. She denied hallucinations and did not appear to responding to internal stimuli. Assessment: She is 4-year-old female with multiple interpersonal and social issues percent med with marked dysphoria, irritability, anger, anxiety and depression. She has multiple medical problems including chronic pain, hypertension, seizure disorder, hypothyroidism and tobacco use disorder. Plan: Continue inpatient treatment. Continue safety precautions. Continue current psychotropic medications including Abilify 2.5 mg daily, Wellbutrin SR 300 mg daily, Klonopin 1 mg by mouth 3 times a day, and Desyrel 200 mg at bedtime and 200 mg by mouth at bedtime when necessary for insomnia. Titrate the Abilify according to clinical response and tolerance. Encourage participation in therapeutic groups and activities. Evaluate clinical status response to treatment daily basis.
[2020-06-09] MEDS: ETODOLAC 400 MG TAB PO PRN (18:28)
[2020-06-09] MEDS: traZODone HCL 100 MG TAB PO SCH (21:51)
[2020-06-10] MEDS: HYDROcodone/APAP 5-325MG 1 EACH TAB PO PRN ×2 (06:25→13:01)
[2020-06-10] MEDS: LORazepam 1 MG TAB PO PRN ×2 (06:25→13:01)
[2020-06-10] MEDS: LEVOTHYROXINE 125 MCG TAB PO SCH (06:33)
[2020-06-10] MEDS: clonazePAM 1 MG TAB PO SCH ×3 (08:47→20:52)
[2020-06-10] MEDS: buPROPion SR 150 MG TABLET.ER PO SCH (08:47)
[2020-06-10] MEDS: GABAPENTIN 300 MG CAP PO SCH ×3 (08:47→20:49)
[2020-06-10] MEDS: ARIPiprazole 5 MG TAB PO SCH (08:47)
[2020-06-10] MEDS: TOPIRAMATE 100 MG TAB PO SCH ×2 (08:47→20:52)
[2020-06-10] MEDS: MELOXICAM 7.5 MG TAB PO SCH (08:48)
[2020-06-10] MEDS: CYANOCOBALAMIN 500 MCG TAB PO SCH (08:48)
[2020-06-10] MEDS: NICOTINE 14MG/24HR PATCH TRANSDERM SCH (08:49)
[2020-06-10] MEDS: ETODOLAC 400 MG TAB PO PRN (09:57)
[2020-06-10] MEDS: TRIAMTERENE-HCTZ 37.5-25MG 1 EACH CAP PO SCH (09:58)
[2020-06-10] MEDS: LOSARTAN-HCTZ 50-12.5 MG 1 EACH TAB PO SCH (09:58)
[2020-06-10] MEDS: CYCLOBENZAPRINE 10 MG TAB PO PRN (14:50)
[2020-06-10] MEDS: PILOCARPINE 5 MG TAB PO PRN (14:54)
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
[2020-06-10] MEDS: traZODone HCL 100 MG TAB PO SCH (20:51)
[2020-06-10] MEDS: DULoxetine HCL 60 MG CAPSULE.DR PO SCH (20:51)
[2020-06-11] MEDS: LORazepam 1 MG TAB PO PRN ×2 (06:38→14:35)
[2020-06-11] MEDS: LEVOTHYROXINE 125 MCG TAB PO SCH (06:38)
[2020-06-11] MEDS: HYDROcodone/APAP 5-325MG 1 EACH TAB PO PRN (06:38)
[2020-06-11] MEDS: ARIPiprazole 5 MG TAB PO SCH (09:29)
[2020-06-11] MEDS: GABAPENTIN 300 MG CAP PO SCH ×3 (09:29→21:17)
[2020-06-11] MEDS: TOPIRAMATE 100 MG TAB PO SCH ×2 (09:29→21:14)
[2020-06-11] MEDS: NICOTINE 14MG/24HR PATCH TRANSDERM SCH (09:29)
[2020-06-11] MEDS: MELOXICAM 7.5 MG TAB PO SCH (09:30)
[2020-06-11] MEDS: CYANOCOBALAMIN 500 MCG TAB PO SCH (09:33)
[2020-06-11] MEDS: buPROPion SR 150 MG TABLET.ER PO SCH (09:33)
[2020-06-11] MEDS: clonazePAM 1 MG TAB PO SCH ×3 (09:34→21:17)
[2020-06-11] MEDS: LOSARTAN-HCTZ 50-12.5 MG 1 EACH TAB PO SCH (09:35)
[2020-06-11] MEDS: TRIAMTERENE-HCTZ 37.5-25MG 1 EACH CAP PO SCH (09:36)
[2020-06-11] MEDS: ETODOLAC 400 MG TAB PO PRN (10:10)
--- NOTE | 2020-06-11 13:49 | P.PN ---
Progress Note - Text Progress Note Date: 06/11/20 Clinical Problems: Unspecified mood disorder, rule out major depressive disorder, rule out bipolar disorder current episode depressed without psychotic features, rule out posttraumatic stress disorder, rule out somatoform disorder, cluster B personality disorder Interim history: I reviewed the medical record, interviewed the patient and discussed her treatment and treatment plan during team meeting. She complained of continued feelings depression and thoughts of suicide. She complained that she cannot attent therapeutic groups or activities alleging that she has a social phobia. However during team director social noted she attended group this morning but would not speak. She makes frequent express for additional dose of benzodiazepines and repeatedly requests [place] for pain. On the way to the office she was unsteady and held onto the wall as she walked. When I commented about her unsteadiness she replied that she has not and walks along the wall because she has social phobia and keeps away from people. She denied side effects to the initial dose of Abilify or additional side effects after we started duloxetine. Mental status exam: She presented as a disheveled-appearing 40-year-old female who was markedly irritable and angry. She did not make eye contact and speak clearly covered her face or looked at the floor.. She had a blunted facial expression She showed no abnormality of psychomotor activity. Her speech was difficult to understand because she mumbled. Her affect was dysphoric and primarily angry. She is less overtly angry today than yesterday. She expressed suicidal ideation and wishes but denied intent or plan. She denied homicidal ideation. She expressed feelings of hopelessness, helplessness and worthlessness. She ruminated about her multiple's interpersonal and social issues. She did not express ideas reference, paranoid ideation or delusions. Her thinking was concrete. Associations were coherent and goal directed. She denied hallucinations and did not appear to responding to internal stimuli. Assessment: She described continued feelings of depression, anxiety and suicidal thoughts as well as ongoing interpersonal conflict, financial issues and parent child problems. Plan: Continue inpatient treatment. Continue safety precautions. Increase Abilify to 5 mg daily. Continue duloxetine 60mg HS, Wellbutrin SR 300 mg daily, Klonopin 1 mg by mouth 3 times a day, and Desyrel 200 mg at bedtime and 200 mg by mouth at bedtime when necessary for insomnia. Titrate the Abilify according to clinical response and tolerance. Encourage participation in therapeutic groups and activities. Evaluate clinical status response to treatment daily basis.
[2020-06-11] MEDS: DULoxetine HCL 60 MG CAPSULE.DR PO SCH (21:14)
[2020-06-11] MEDS: traZODone HCL 100 MG TAB PO SCH (21:16)
[2020-06-12] MEDS: LEVOTHYROXINE 125 MCG TAB PO SCH (06:05)
[2020-06-12] MEDS: LOSARTAN-HCTZ 50-12.5 MG 1 EACH TAB PO SCH (08:41)
[2020-06-12] MEDS: NICOTINE 14MG/24HR PATCH TRANSDERM SCH (08:41)
[2020-06-12] MEDS: clonazePAM 1 MG TAB PO SCH ×3 (08:41→20:58)
[2020-06-12] MEDS: TOPIRAMATE 100 MG TAB PO SCH ×2 (08:41→20:57)
[2020-06-12] MEDS: ARIPiprazole 5 MG TAB PO SCH (08:41)
[2020-06-12] MEDS: buPROPion SR 150 MG TABLET.ER PO SCH (08:41)
[2020-06-12] MEDS: MELOXICAM 7.5 MG TAB PO SCH (08:42)
[2020-06-12] MEDS: GABAPENTIN 300 MG CAP PO SCH ×3 (08:43→20:58)
[2020-06-12] MEDS: TRIAMTERENE-HCTZ 37.5-25MG 1 EACH CAP PO SCH (08:43)
[2020-06-12] MEDS: CYANOCOBALAMIN 500 MCG TAB PO SCH (08:43)
[2020-06-12] MEDS: HYDROcodone/APAP 5-325MG 1 EACH TAB PO PRN ×3 (08:45→20:58)
[2020-06-12] MEDS: LORazepam 0.5 MG TAB PO PRN (09:40)
[2020-06-12 11:39] LABS: Appearance,Urine Cloudy (Clear); Bacteria,Urine Rare /hpf; Bilirubin,Urine 1+ (Negative); Blood,Urine Negative (Negative); Color,Urine Yellow; Glucose,Urine (UA) Negative (Negative); Ketones,Urine Negative (Negative); Leukocyte Esterase,Urine Large (Negative); Mucus,Urine Rare /hpf; Nitrite,Urine Negative (Negative); PH, Urine 6.5 (5.0-8.0); Protein,Urine Negative (Negative); RBC,Urine 5 /hpf (0-5); Specific Gravity,Urine 1.013 (1.001-1.035); Squamous Epithelial Cell,Urine 5 /hpf (0-4); Urobilinogen,Urine <2.0 mg/dL (<2.0); WBC,Urine 5 /hpf (0-5)
[2020-06-12] MEDS ORDERED: ARIPiprazole 15 MG TAB PO SCH (13:00)
[2020-06-12] MEDS ORDERED: ARIPiprazole 10 MG TAB PO ONE (13:00)
--- NOTE | 2020-06-12 14:25 | P.PN ---
Progress Note - Text Progress Note Date: 06/12/20 Clinical Problems: Major depressive disorder, posttraumatic stress disorder, rule out somatoform disorder, borderline personality disorder Interim history: I reviewed the medical record, interviewed the patient and discussed her treatment and treatment plan during team meeting. She identified her goal is not waking up in the morning angry and wanting to . We talked about her persistent anger and the difficulties that she had controlling her anger. I explained that her anger is not due to a bipolar illness but is likely related to her history of trauma and personal issues that she has struggled with over several years. These issues include impairments interpersonal relationship, mood lability and intolerance of being alone. On a positive note she decided to tell her 2 oldest sons that they needed to move out of the house. We discussed discharge and aftercare services. She complained the she is "not ready" for discharge and complained that other patients have remained in the hospital for 10 days or more. I suggested she consider the outpatient recommendation to participate in the day program offered to [facility]. Mental status exam: She presented as a casually groom 40-year-old woman who was calm and cooperative. She made eye contact and spoke clearly not covering her face or looking at the floor. She had a blunted facial expression. She was less overtly angry today than yesterday. She expressed wishes but denied intent or plan. She denied homicidal ideation. She feels hopelessness, helplessness and worthlessness. She ruminated about her interpersonal and social issues. She did not express ideas reference, paranoid ideation or d elusions. Her thinking was concrete. Associations were coherent and goal directed. She denied hallucinations and did not appear to responding to internal stimuli. Assessment: She She is less angry and distressed on admission. She continues to described passive suicidal ideation and continued difficulty with emotional control. Plan: Continue inpatient treatment. Continue safety precautions. Increase Abilify to 15 mg daily. Continue duloxetine 60mg HS, Wellbutrin SR 300 mg daily, Klonopin 1 mg by mouth 3 times a day, and Desyrel 200 mg at bedtime and 200 mg by mouth at bedtime when necessary for insomnia. Decrease Ativan to 0.5 mg by mouth 3 times a day when necessary due to concerns of expressive benzodiazepine use. Encourage participation in therapeutic groups and activities. Evaluate clinical status response to treatment daily basis.
[2020-06-12] MEDS: ETODOLAC 400 MG TAB PO PRN (16:35)
[2020-06-12] MEDS: DULoxetine HCL 60 MG CAPSULE.DR PO SCH (20:57)
[2020-06-12] MEDS: traZODone HCL 100 MG TAB PO SCH (20:58)
[2020-06-13] MEDS: LEVOTHYROXINE 125 MCG TAB PO SCH (06:20)
[2020-06-13] MEDS: ARIPiprazole 15 MG TAB PO SCH (08:56)
[2020-06-13] MEDS: NICOTINE 14MG/24HR PATCH TRANSDERM SCH (08:56)
[2020-06-13] MEDS: GABAPENTIN 300 MG CAP PO SCH ×3 (08:57→20:59)
[2020-06-13] MEDS: CYANOCOBALAMIN 500 MCG TAB PO SCH (08:57)
[2020-06-13] MEDS: buPROPion SR 150 MG TABLET.ER PO SCH (08:57)
[2020-06-13] MEDS: clonazePAM 1 MG TAB PO SCH ×3 (08:57→20:59)
[2020-06-13] MEDS: TRIAMTERENE-HCTZ 37.5-25MG 1 EACH CAP PO SCH ×2 (08:59→09:04)
[2020-06-13] MEDS: MELOXICAM 7.5 MG TAB PO SCH (09:01)
[2020-06-13] MEDS: HYDROcodone/APAP 5-325MG 1 EACH TAB PO PRN ×2 (09:02→20:59)
[2020-06-13] MEDS: TOPIRAMATE 100 MG TAB PO SCH ×2 (09:02→21:02)
[2020-06-13] MEDS: LOSARTAN-HCTZ 50-12.5 MG 1 EACH TAB PO SCH (09:04)
[2020-06-13] MEDS: LORazepam 0.5 MG TAB PO PRN ×2 (11:19→18:52)
--- NOTE | 2020-06-13 14:29 | P.PN ---
Progress Note - Text Progress Note Date: 06/13/20 Clinical Problems: Major depressive disorder, posttraumatic stress disorder, rule out somatoform disorder, borderline personality disorder Interim history: I reviewed the medical record, interviewed the patient and discussed her treatment and treatment plan during team meeting. Deanne soriano today was anger. She is angry at her sons for not bringing her replacement classes or another peer issues. She told him several times but they have yet to come to the hospital. During the discussion she identified the of her son as event that causes her greatest anger. He was 3 months old and she found him unresponsive in his crib. She experienced sedation from the increased dose of olanzapine. Mental status exam: She presented as a casually groom 40-year-old woman who was calm and cooperative. She made intermittent eye contact and spoke clearly slowly and softly. She had a distressed facial expression. She was less overtly angry today than yesterday. She expressed passive suicidal thoughts and wishes but denied intent or plan. She denied homicidal ideation. She feels worthless and unappreciated by her children. She ruminated about her her children. She did not express ideas reference, paranoid ideation or delusions. Her thinking was concrete. Associations were coherent and goal directed. She denied hallucinations and did not appear to responding to internal stimuli. Assessment: She is less angry and distressed on admission. She continues to described passive suicidal ideation and continued difficulty with emotional control. Plan: Continue inpatient treatment. Continue safety precautions. Continue Abilify to 15 mg daily. Continue duloxetine 60mg HS, Wellbutrin SR 300 mg daily, Klonopin 1 mg by mouth 3 times a day, and Desyrel 200 mg at bedtime and 200 mg by mouth at bedtime when necessary for insomnia. Decrease Ativan to 0.5 mg by mouth 3 times a day when necessary due to concerns of expressive benzodiazepine use. Encourage participation in therapeutic groups and activities. Evaluate clinical status response to treatment daily basis.
[2020-06-13] MEDS: ETODOLAC 400 MG TAB PO PRN (18:51)
[2020-06-13] MEDS: DULoxetine HCL 60 MG CAPSULE.DR PO SCH (21:00)
[2020-06-13] MEDS: traZODone HCL 100 MG TAB PO SCH (21:00)
[2020-06-14] MEDS: LEVOTHYROXINE 125 MCG TAB PO SCH (06:33)
[2020-06-14] MEDS: CYANOCOBALAMIN 500 MCG TAB PO SCH (08:52)
[2020-06-14] MEDS: ARIPiprazole 15 MG TAB PO SCH (08:52)
[2020-06-14] MEDS: NICOTINE 14MG/24HR PATCH TRANSDERM SCH (08:52)
[2020-06-14] MEDS: clonazePAM 1 MG TAB PO SCH ×3 (08:52→21:07)
[2020-06-14] MEDS: buPROPion SR 150 MG TABLET.ER PO SCH (08:52)
[2020-06-14] MEDS: GABAPENTIN 300 MG CAP PO SCH ×3 (08:53→23:15)
[2020-06-14] MEDS: LOSARTAN-HCTZ 50-12.5 MG 1 EACH TAB PO SCH (08:53)
[2020-06-14] MEDS: TOPIRAMATE 100 MG TAB PO SCH ×2 (08:53→21:07)
[2020-06-14] MEDS: MELOXICAM 7.5 MG TAB PO SCH (08:54)
[2020-06-14] MEDS: TRIAMTERENE-HCTZ 37.5-25MG 1 EACH CAP PO SCH (08:54)
[2020-06-14] MEDS: LORazepam 0.5 MG TAB PO PRN ×2 (11:20→23:15)
[2020-06-14] MEDS: HYDROcodone/APAP 5-325MG 1 EACH TAB PO PRN ×2 (11:20→21:07)
--- NOTE | 2020-06-14 16:27 | P.PN ---
Progress Note - Text Progress Note Date: 06/14/20 Interval history: Patient is seen in cross coverage today. She states that she feels very tired with titration of Abilify. She is attending some groups or part of groups. She does talk about having social anxiety. Mental status exam: She is alert and cooperative with the interview. Her speech is fluent, not rapid or pressured. Thought processes organized. Her mood appears depressed. Her affect is restricted. She admits to still having some thoughts of suicide but reports she feels safe. On the unit. She does not verbalize any thoughts of harm to others. She does not present with any active symptoms of psychosis or agitation. Plan: We'll change the scheduling Abilify to 15 mg at bedtime to see if this can be better in terms of him tiredness as a side effect. Maintain other current psychotropic medication regimen and continue to monitor for any side effects. Continue to monitor regarding any suicidal ideations. We'll continue to provide cross coverage for this patient through the weekend
[2020-06-14] MEDS: DULoxetine HCL 60 MG CAPSULE.DR PO SCH (21:07)
[2020-06-14] MEDS: traZODone HCL 100 MG TAB PO SCH (23:15)
[2020-06-15] MEDS: LORazepam 0.5 MG TAB PO PRN ×2 (05:23→20:52)
[2020-06-15] MEDS: HYDROcodone/APAP 5-325MG 1 EACH TAB PO PRN ×2 (05:24→16:35)
[2020-06-15] MEDS: LEVOTHYROXINE 125 MCG TAB PO SCH (05:45)
[2020-06-15] MEDS: buPROPion SR 150 MG TABLET.ER PO SCH (08:49)
[2020-06-15] MEDS: NICOTINE 14MG/24HR PATCH TRANSDERM SCH (08:49)
[2020-06-15] MEDS: GABAPENTIN 300 MG CAP PO SCH ×3 (08:50→20:49)
[2020-06-15] MEDS: clonazePAM 1 MG TAB PO SCH ×3 (08:50→20:50)
[2020-06-15] MEDS: CYANOCOBALAMIN 500 MCG TAB PO SCH (08:50)
[2020-06-15] MEDS: MELOXICAM 7.5 MG TAB PO SCH (08:51)
[2020-06-15] MEDS: LOSARTAN-HCTZ 50-12.5 MG 1 EACH TAB PO SCH (08:51)
[2020-06-15] MEDS: ERGOCALCIFEROL 50,000 UNIT CAP PO SCH (08:52)
[2020-06-15] MEDS: TRIAMTERENE-HCTZ 37.5-25MG 1 EACH CAP PO SCH (08:52)
[2020-06-15] MEDS: TOPIRAMATE 100 MG TAB PO SCH ×2 (08:52→20:50)
[2020-06-15] MEDS: MAGNESIUM HYDROXIDE 2,400 MG/10 ML CUP PO PRN (08:53)
--- NOTE | 2020-06-15 16:50 | P.PN ---
Progress Note - Text Progress Note Date: 06/15/20 Interval history: Patient is seen in cross coverage today. She reports that she is sleeping well. She seems to relay that she could be eating better. She does feel less tired today without getting the Abilify this morning. Says she was falling asleep with her visit last night. She does feel like today is a better today compared to yesterday. She feels like her mood is doing okay but some other people told her that she looks sad. Mental status exam: She is alert and cooperative with the interview. Her affect overall is restricted. Her mood she describes her mood feeling okay but others have felt like she is sad. She denies any current thoughts of harm to self others no evidence of him psychosis or agitation Plan: Patient will be maintained on current psychotropic medication regimen. We have change the scheduling Abilify to bedtime. We'll monitor for any medication side effects and monitor her ongoing response to treatment.
[2020-06-15] MEDS: DULoxetine HCL 60 MG CAPSULE.DR PO SCH (20:50)
[2020-06-15] MEDS: traZODone HCL 100 MG TAB PO SCH (20:50)
[2020-06-15] MEDS ORDERED: ARIPiprazole 15 MG TAB PO SCH (21:00)
[2020-06-16] MEDS: LEVOTHYROXINE 125 MCG TAB PO SCH (06:19)
[2020-06-16] MEDS: LOSARTAN-HCTZ 50-12.5 MG 1 EACH TAB PO SCH (09:10)
[2020-06-16] MEDS: TOPIRAMATE 100 MG TAB PO SCH ×2 (09:11→21:51)
[2020-06-16] MEDS: CYANOCOBALAMIN 500 MCG TAB PO SCH (09:13)
[2020-06-16] MEDS: clonazePAM 1 MG TAB PO SCH ×3 (09:14→21:50)
[2020-06-16] MEDS: buPROPion SR 150 MG TABLET.ER PO SCH (09:14)
[2020-06-16] MEDS: NICOTINE 14MG/24HR PATCH TRANSDERM SCH (09:14)
[2020-06-16] MEDS: MELOXICAM 7.5 MG TAB PO SCH (09:14)
[2020-06-16] MEDS: GABAPENTIN 300 MG CAP PO SCH ×3 (09:15→21:50)
[2020-06-16] MEDS: TRIAMTERENE-HCTZ 37.5-25MG 1 EACH CAP PO SCH (09:19)
[2020-06-16] MEDS: HYDROcodone/APAP 5-325MG 1 EACH TAB PO PRN ×2 (09:22→16:24)
--- NOTE | 2020-06-16 12:47 | P.PN ---
Progress Note - Text Progress Note Date: 06/16/20 Clinical Problems: Major depressive disorder, posttraumatic stress disorder, rule out somatoform disorder, borderline personality disorder Interim history: I reviewed the medical record, interviewed the patient and discussed her treatment and treatment plan during team meeting. She stated she could not take the current dose of Abilify. The covering physician changed the dosing from morning to night time because she was experiencing excessive daytime sedation. She complained that she feels groggy at nighttime and the morning from the HS 15 mg dose. She again complained about her children and was angry that they did not visit her over the weekend. She does not believe the children respect her or appreciates her. She stated that the youngest child is rude and disrespectful when he returns from his father's house. She plans to speak with the 2 oldest when she gets home and tell them that they needed to move out. We agreed on a plan to discharge her tomorrow. Mental status exam: She presented as a casually groom 40-year-old woman who was calm and cooperative. She made intermittent eye contact and spoke clearly slowly and softly. She had a distressed facial expression. Her affect was dysphoric with a mixture of anger, depression and anxiety. She feels worthless because she does not believe her children respect appreciated her. She denied feeling helpless or hopeless. She denied suicidal or homicidal ideation. She ruminated about her her children. She did not express ideas reference, paranoid ideation or delusions. Her thinking was concrete. Associations were coherent and goal directed. She denied hallucinations and did not appear to responding to internal stimuli. Assessment: She is less angry and distressed on admission. She continues to have difficulty with emotional control. Plan: Plan for discharge on 06/17/2020 with follow-up at [facility]. Continue safety precautions. Decrease Abilify to 5 mg daily Continue duloxetine 60mg HS, Wellbutrin SR 300 mg daily, Klonopin 1 mg by mouth 3 times a day, and Desyrel 200 mg at bedtime and 200 mg by mouth at bedtime when necessary for insomnia. Decrease Ativan to 0.5 mg by mouth 3 times a day when necessary due to concerns of expressive benzodiazepine use. Encourage participation in therapeutic groups and activities. Evaluate clinical status response to treatment daily basis.
[2020-06-16 14:07] VITALS: BMI 29.9
[2020-06-16] MEDS: MAGNESIUM HYDROXIDE 2,400 MG/10 ML CUP PO PRN (19:18)
[2020-06-16 20:38] LABS: Appearance,Urine Cloudy (Clear); Bacteria,Urine Rare /hpf; Bilirubin,Urine Negative (Negative); Blood,Urine Trace (Negative); Color,Urine Yellow; Glucose,Urine (UA) Negative (Negative); Hyaline Casts,Urine 1 /lpf (0-2); Ketones,Urine Negative (Negative); Leukocyte Esterase,Urine Large (Negative); Mucus,Urine Rare /hpf; Nitrite,Urine Negative (Negative); Protein,Urine Negative (Negative); RBC,Urine 7 /hpf (0-5); Specific Gravity,Urine 1.019 (1.001-1.035); Squamous Epithelial Cell,Urine 10 /hpf (0-4); Urobilinogen,Urine <2.0 mg/dL (<2.0); WBC,Urine 21 /hpf (0-5)
[2020-06-16] MEDS ORDERED: ARIPiprazole 5 MG TAB PO SCH (21:00)
[2020-06-16] MEDS: DULoxetine HCL 60 MG CAPSULE.DR PO SCH (21:50)
[2020-06-16] MEDS: CEFDINIR 300 MG CAP PO SCH (21:50)
[2020-06-16] MEDS: traZODone HCL 100 MG TAB PO SCH (21:51)
[2020-06-16] MEDS: ETODOLAC 400 MG TAB PO PRN (21:52)
[2020-06-17] MEDS: LEVOTHYROXINE 125 MCG TAB PO SCH (06:00)
[2020-06-17] MEDS: GABAPENTIN 300 MG CAP PO SCH (08:18)
[2020-06-17] MEDS: LOSARTAN-HCTZ 50-12.5 MG 1 EACH TAB PO SCH (08:18)
[2020-06-17] MEDS: NICOTINE 14MG/24HR PATCH TRANSDERM SCH (08:18)
[2020-06-17] MEDS: clonazePAM 1 MG TAB PO SCH (08:19)
[2020-06-17] MEDS: MELOXICAM 7.5 MG TAB PO SCH (08:19)
[2020-06-17] MEDS: buPROPion SR 150 MG TABLET.ER PO SCH (08:19)
[2020-06-17] MEDS: TOPIRAMATE 100 MG TAB PO SCH (08:19)
[2020-06-17] MEDS: CYANOCOBALAMIN 500 MCG TAB PO SCH (08:19)
[2020-06-17] MEDS: TRIAMTERENE-HCTZ 37.5-25MG 1 EACH CAP PO SCH (08:20)
[2020-06-17] MEDS: HYDROcodone/APAP 5-325MG 1 EACH TAB PO PRN (08:45)
[2020-06-17] MEDS ORDERED: ARIPiprazole 5 MG TAB PO SCH (09:00)
[2020-06-17] MEDS: CEFDINIR 300 MG CAP PO SCH (09:13)
[2020-06-17] MEDS: LORazepam 0.5 MG TAB PO PRN (10:27)
[2020-06-17 12:59] VITALS: BP 112/73; PULSE 91; RESP 16; TEMP 97.8
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
== END 2020-06-17 13:27 | disposition home or self-care (01) | DRG 885 ==
LOC: EC 04:36 → 3MHU 10:53
PROVIDERS: ADMIT Psychiatry & Neurology Psychiatry; ATTEND Psychiatry & Neurology Psychiatry
DX: F33.9 Major depressive disorder, recurrent, unspecified (principal); R45.851 Suicidal ideations; F40.10 Social phobia, unspecified; F41.0 Panic disorder [episodic paroxysmal anxiety]; F41.1 Generalized anxiety disorder; F17.210 Nicotine dependence, cigarettes, uncomplicated; F42.9 Obsessive-compulsive disorder, unspecified; F43.10 Post-traumatic stress disorder, unspecified; F60.3 Borderline personality disorder; G40.909 Epilepsy, unspecified, not intractable, without status epilepticus; G89.29 Other chronic pain; G93.0 Cerebral cysts; I10 Essential (primary) hypertension; M35.00 Sjogren syndrome, unspecified; M06.9 Rheumatoid arthritis, unspecified; M79.7 Fibromyalgia; Z59.9 Problem related to housing and economic circumstances, unspecified; Z79.1 Long term (current) use of non-steroidal anti-inflammatories (NSAID); Z79.890 Hormone replacement therapy; Z11.59 Encounter for screening for other viral diseases; E03.9 Hypothyroidism, unspecified; Z79.899 Other long term (current) drug therapy; Z81.8 Family history of other mental and behavioral disorders; Z82.0 Family history of epilepsy and other diseases of the nervous system; Z86.59 Personal history of other mental and behavioral disorders; Z91.410 Personal history of adult physical and sexual abuse; Z62.810 Personal history of physical and sexual abuse in childhood; Z63.4 Disappearance and death of family member; Z81.3 Family history of other psychoactive substance abuse and dependence; Z56.0 Unemployment, unspecified
CPT/HCPCS: 36415; 80053; 80306; 81001; 81025; 82075; 85027; 87086; 99285

== ENCOUNTER 2020-06-17 22:35 | Emergency (ER) | payer OTHER ==
[2020-06-17 22:43] VITALS: RESP 18
[2020-06-18 01:14] VITALS: BP 107/75; PULSE 82; TEMP 97.7
[2020-06-18 01:35] LABS: Appearance,Urine Cloudy (Clear); Bilirubin,Urine 1+ (Negative); Blood,Urine Negative (Negative); Color,Urine Yellow; Glucose,Urine (UA) Negative (Negative); Hyaline Casts,Urine 11 /lpf (0-2); Ketones,Urine Negative (Negative); Leukocyte Esterase,Urine Large (Negative); Mucus,Urine Rare /hpf; Nitrite,Urine Negative (Negative); Protein,Urine Trace (Negative); RBC,Urine 5 /hpf (0-5); Specific Gravity,Urine 1.021 (1.001-1.035); Squamous Epithelial Cell,Urine 29 /hpf (0-4); Urobilinogen,Urine <2.0 mg/dL (<2.0); WBC,Urine 20 /hpf (0-5)
[2020-06-18 01:42] LABS: Amphetamine Screen,Urine Detected (NotDetected); Barbiturate Screen,Urine Not Detected (NotDetected); Benzodiazepines Screen,Urine Detected (NotDetected); Cocaine Screen,Urine Not Detected (NotDetected); Methadone Screen, Urine Not Detected (NotDetected); Opiate Screen,Urine Detected (NotDetected); Oxycodone Screen, Urine Detected (NotDetected); Phencyclidine Screen,Urine Not Detected (NotDetected); Tricyclic Antidepressant,Urine Not Detected (NotDetected); Urn Cannabinoid Scrn Not Detected (NotDetected)
--- NOTE | 2020-06-18 02:14 | ED ---
General Adult HPI - General Chief complaint: Psychiatric Symptoms Stated complaint: Mental Health Time Seen by Provider: 06/17/20 23:02 Source: patient, family, RN notes reviewed Mode of arrival: ambulatory Limitations: no limitations - History of Present Illness Initial comments: 40-year-old female with a past psychiatric history of depression, anxiety presents to the emergency room for a chief complaint of suicidal thoughts. Patient states she was recently admitted for about 10 days on the mental health unit. Reports that she was discharged home this morning the patient continued to have suicidal thoughts. Patient reports that she tried to cut her wrists with a dull knife today but her son stopped her. Patient reports that she is currently feeling suicidal.Patient has no other complaints at this time including shortness of breath, chest pain, abdominal pain, nausea or vomiting, headache, or visual changes. - Related Data Home Medications Medication Instructions Recorded Confirmed Cyanocobalamin (Vitamin B-12) 1,000 mcg PO DAILY 08/05/17 06/08/20 [Vitamin B-12] Cyclobenzaprine [Flexeril] 10 mg PO BID 08/05/17 06/08/20 Ergocalciferol [Vitamin D2 50,000 unit PO ESQUIVEL 08/05/17 06/08/20 (DRISDOL)] Gabapentin [Neurontin] 600 mg PO TID 08/05/17 06/08/20 Levothyroxine Sodium [Synthroid] 125 mcg PO DAILY 08/05/17 06/08/20 Losartan/Hydrochlorothiazide 1 tab PO DAILY 08/05/17 06/08/20 [Losartan-Hctz 100-25 mg Tab] Pilocarpine [Salagen] 5 mg PO BID PRN 08/05/17 06/08/20 Triamterene/Hydrochlorothiazid 1 cap PO DAILY 08/05/17 06/08/20 [Dyazide 37.5-25 Capsule] Meloxicam [Mobic] 15 mg PO BID 05/22/19 06/08/20 Topiramate [Topamax] 100 mg PO BID 05/22/19 06/08/20 traZODone HCL [Desyrel] 200 mg PO HS 05/22/19 06/08/20 Butalb/Acetaminophen/Caffeine 1 - 2 each PO Q4H PRN 06/08/20 06/08/20 [Fioricet 50-325-40] DULoxetine HCL [Cymbalta] 60 mg PO HS 06/08/20 06/08/20 HYDROcodone/APAP 5-325MG [[place] 1 tab PO Q12H PRN 06/08/20 06/08/20 5-325] Ketorolac [Toradol] 10 mg PO Q6HR PRN 06/08/20 06/08/20 buPROPion XL [Wellbutrin XL] 300 mg PO DAILY 06/08/20 06/08/20 clonazePAM [KlonoPIN] 1 mg PO TID 06/08/20 06/08/20 hydrOXYzine HCL [Atarax] 50 mg PO TID PRN 06/08/20 06/08/20 Previous Rx's Medication Instructions Recorded Ibuprofen [Motrin] 600 mg PO Q6HR PRN #30 tab 08/09/17 ARIPiprazole [Abilify] 5 mg PO HS #30 tab 06/17/20 Cefdinir [Omnicef] 300 mg PO BID #6 cap 06/17/20 Nicotine 14Mg/24Hr Patch [Habitrol] 1 patch TRANSDERM DAILY patch 06/17/20 levETIRAcetam [Keppra] 750 mg PO Q12HR tab 06/17/20 traZODone HCL [Desyrel] 200 mg PO HS PRN tab 06/17/20 Allergies Allergy/AdvReac Type Severity Reaction Status Date / Time No Known Allergies Allergy Verified 06/17/20 22:43 Review of Systems ROS Statement: Those systems with pertinent positive or pertinent negative responses have been documented in the HPI. ROS Other: All systems not noted in ROS Statement are negative. Past Medical History Past Medical History: Fibromyalgia, Hypertension, Memory Impairment, Rheumatoid Arthritis (RA), Seizure Disorder, Thyroid Disorder Additional Past Medical History / Comment(s): brain stem tumor, surgan syndrome, DDD, sleep disorder, degenerative joint History of Any Multi-Drug Resistant Organisms: None Reported Past Surgical History: Section, Cholecystectomy, Uterine Ablation Additional Past Surgical History / Comment(s): brain tumor removed 2014, Jaime mosquera section X-5 Past Anesthesia/Blood Transfusion Reactions: No Reported Reaction Past Psychological History: Anxiety, Depression Smoking Status: Current every day smoker Past Alcohol Use History: Occasional Past Drug Use History: None Reported General Exam Limitations: no limitations General appearance: alert, in no apparent distress Head exam: Present: atraumatic, normocephalic, normal inspection Eye exam: Present: normal appearance, PERRL, EOMI. Absent: scleral icterus, conjunctival injection, periorbital swelling ENT exam: Present: normal exam, mucous membranes moist Neck exam: Present: normal inspection. Absent: tenderness, meningismus, lymphadenopathy Respiratory exam: Present: normal lung sounds bilaterally. Absent: respiratory distress, wheezes, rales, rhonchi, stridor Cardiovascular Exam: Present: regular rate, normal rhythm, normal heart sounds. Absent: systolic murmur, diastolic murmur, rubs, gallop, clicks GI/Abdominal exam: Present: soft, normal bowel sounds. Absent: distended, tenderness, guarding, rebound, rigid Extremities exam: Absent: other (No lacerations noted to the bilateral wrists) Neurological exam: Present: alert Course Vital Signs 06/17/20 06/18/20 22:38 01:13 Temperature 98.6 F 97.7 F Pulse Rate 96 82 Respiratory 18 18 Rate Blood Pressure 108/82 107/75 O2 Sat by Pulse 97 96 Oximetry Medical Decision Making - Medical Decision Making Patient was evaluated by EPS and giving currently active suicidal thoughts with plan of cutting wrists with a knife patient will be admitted. She will be transferred to another facility. Dr oviedo to fill out cert for transfer. - Lab Data Lab Results 06/18/20 Range/Units 01:22 Urine Color Yellow Urine Appearance Cloudy H (Clear) Urine pH 7.0 (5.0-8.0) Ur Specific [place] 1.021 (1.001-1.035) Urine Protein Trace H (Negative) Urine Glucose (UA) Negative (Negative) Urine Ketones Negative (Negative) Urine Blood Negative (Negative) Urine Nitrite Negative (Negative) Urine Bilirubin 1+ H (Negative) Urine Urobilinogen <2.0 (<2.0) mg/dL Ur Leukocyte Esterase Large H (Negative) Urine RBC 5 (0-5) /hpf Urine WBC 20 H (0-5) /hpf Ur Squamous Epith Cells 29 H (0-4) /hpf Hyaline Casts 11 H (0-2) /lpf Urine Mucus Rare H (None) /hpf Urine Opiates Screen Detected H (NotDetected) Ur Oxycodone Screen Detected H (NotDetected) Urine Methadone Screen Not Detected (NotDetected) Ur Propoxyphene Screen Not Detected (NotDetected) Ur Barbiturates Screen Not Detected (NotDetected) U Tricyclic Antidepress Not Detected (NotDetected) Ur Phencyclidine Scrn Not Detected (NotDetected) Ur Amphetamines Screen Detected H (NotDetected) U Methamphetamines Scrn Not Detected (NotDetected) U Benzodiazepines Scrn Detected H (NotDetected) Urine Cocaine Screen Not Detected (NotDetected) U Marijuana (THC) Screen Not Detected (NotDetected) Disposition Clinical Impression: Suicidal thoughts Disposition: TRANSFER TO PSYCH HOSP/UNIT Is patient prescribed a controlled substance at d/c from ED?: No Referrals: Mahsa Tamayo MD [Primary Care Provider] - 1-2 days Time of Disposition: 02:14
[2020-06-18 02:18] LABS: Basophils % (A) 1 %; Eosinophils # (A) 0.1 k/uL (0-0.7); Eosinophils % (A) 2 %; HGB 13.2 gm/dL (11.4-16.0); Lymphocytes # (A) 1.9 k/uL (1.0-4.8); Lymphocytes % (A) 24 %; MCH 32.8 pg (25.0-35.0); MCHC 33.9 g/dL (31.0-37.0); MCV 96.8 fL (80.0-100.0); Mean Platelet Volume 6.7; Monocytes # (A) 0.4 k/uL (0-1.0); Monocytes % (A) 4 %; Neutrophils # (A) 5.3 k/uL (1.3-7.7); Neutrophils % (A) 67 %; Platelet Count 292 k/uL (150-450); RBC 4.03 m/uL (3.80-5.40); RDW 12.5 % (11.5-15.5); WBC 7.8 k/uL (3.8-10.6)
[2020-06-18 02:27] LABS: Acetaminophen <10.0 ug/mL; African American GFR (CKD) >90 (>60 ml/min/1.73 sqM); Alcohol <10 mg/dL; Anion Gap 8 mmol/L; Blood Urea Nitrogen 17 mg/dL (7-17); Calcium 9.2 mg/dL (8.4-10.2); Carbon Dioxide 26 mmol/L (22-30); Chloride 101 mmol/L (98-107); Glucose 95 mg/dL (74-99); Non-African American GFR(CKD) 78 (>60 ml/min/1.73 sqM); Salicylate <1.0 mg/dL; Sodium 135 mmol/L (137-145)
[2020-06-18] MEDS ORDERED: MAGNESIUM OXIDE 400 MG TAB PO STA (05:08)
[2020-06-18] MEDS ORDERED: POTASSIUM CHLORIDE ER 20 MEQ TAB.ER PO STA (05:08)
== END 2020-06-18 07:10 ==
LOC: EC 22:35
DX: R45.851 Suicidal ideations (principal); G40.909 Epilepsy, unspecified, not intractable, without status epilepticus; E07.9 Disorder of thyroid, unspecified; I10 Essential (primary) hypertension; F41.9 Anxiety disorder, unspecified; F32.9 Major depressive disorder, single episode, unspecified; M06.9 Rheumatoid arthritis, unspecified; F17.200 Nicotine dependence, unspecified, uncomplicated; Z79.1 Long term (current) use of non-steroidal anti-inflammatories (NSAID); Z79.899 Other long term (current) drug therapy; Z79.890 Hormone replacement therapy
CPT/HCPCS: 36415; 80048; 85025; 81001; 80306; 83520; 99285; G0480 ×2; 80320; 80329

== ENCOUNTER → 2020-07-24 | Outpatient (CLI) | payer OTHER | END | disposition home or self-care (01) | LOC: LABWHC1 14:56 | PROVIDERS: ATTEND Nurse Practitioner Family | DX: Z01.818 Encounter for other preprocedural examination (principal) | CPT/HCPCS: 36415; 93005 ==

== ENCOUNTER 2020-07-25 16:38 | Inpatient (IN) | payer MEDICAID, OTHER ==
--- NOTE | 2020-07-25 17:00 | ED ---
General Adult HPI - General Chief complaint: Psychiatric Symptoms Stated complaint: Mental health Time Seen by Provider: 07/25/20 16:51 Source: patient Mode of arrival: ambulatory Limitations: no limitations - History of Present Illness Initial comments: Dictation was produced using [employer] dictation software. please excuse any grammatical, word or spelling errors. This patient was cared for during a federal and state declared state of emergency secondary to Covid 19 Chief Complaint: 40-year-old female with past medical history of suicidality presents with suicidal behavior. History of Present Illness: 40-year-old female she has history of suicidality. She's been in emergency department on 3 separate occasions for suicidal behavior and ideation. Patient has been feeling suicidal for the last several days. She held a knife to her throat and her wrist in front of her boyfriend. She did establish contact with her counselor and was told to come to the emergency department. Patient denies any harm to herself. Denies any ingestion of toxins or drugs. Patient has no medical complaints. She denies any homicidal ideation . No visual or auditory hallucinations. The ROS documented in this emergency department record has been reviewed and confirmed by me. Those systems with pertinent positive or negative responses mora ve been documented in the HPI. All other systems are other negative and/or noncontributory. PHYSICAL EXAM: General Impression: Alert and oriented x3, not in acute distress HEENT: Normocephalic atraumatic, extra-ocular movements intact, pupils equal and reactive to light bilaterally, mucous membranes moist. Cardiovascular: Heart regular rate and rhythm Chest: Able to complete full sentences, no retractions, no tachypnea Abdomen: abdomen soft, non-tender, non-distended, no organomegaly Musculoskeletal: Pulses present and equal in all extremities, no peripheral edema Motor: no focal deficits noted Neurological: CN II-XII grossly intact, no focal motor or sensory deficits noted Skin: Intact with no visualized rashes Psych: Anxious ED course: 40-year-old female presents with suicidal behavior. Signs upon arrival are within acceptable limits. Patient medically cleared for EPS evaluation. Patient evaluated by EPS and will be admitted to inpatient psychiatry. - Related Data Home Medications Medication Instructions Recorded Confirmed Cyclobenzaprine [Flexeril] 10 mg PO BID PRN 08/05/17 07/25/20 Gabapentin [Neurontin] 600 mg PO TID 08/05/17 07/25/20 Levothyroxine Sodium [Synthroid] 125 mcg PO DAILY 08/05/17 07/25/20 Losartan/Hydrochlorothiazide 1 tab PO DAILY 08/05/17 07/25/20 [Losartan-Hctz 100-25 mg Tab] Triamterene/Hydrochlorothiazid 1 cap PO DAILY 08/05/17 07/25/20 [Dyazide 37.5-25 Capsule] traZODone HCL [Desyrel] 200 mg PO HS 05/22/19 07/25/20 HYDROcodone/APAP 5-325MG [[place] 1 tab PO BID 06/08/20 07/25/20 5-325] clonazePAM [KlonoPIN] 1 mg PO TID 06/08/20 07/25/20 hydrOXYzine HCL [Atarax] 50 mg PO QID PRN 06/08/20 07/25/20 Celecoxib [CeleBREX] 400 mg PO DAILY 07/25/20 07/25/20 Diclofenac Sodium [Voltaren Gel] 2 gram TOPICAL QID PRN 07/25/20 07/25/20 Hydroxychloroquine Sulfate 200 mg PO BID 07/25/20 07/25/20 [Plaquenil] Omeprazole 20 mg PO DAILY 07/25/20 07/25/20 Topiramate [Topamax] 100 mg PO BID 07/25/20 07/25/20 dexAMETHasone [Hexadrol] See Taper PO DAILY 07/25/20 07/25/20 valACYclovir [Valtrex] 500 mg PO DAILY 07/25/20 07/25/20 Previous Rx's Medication Instructions Recorded DULoxetine HCL [Cymbalta] 60 mg PO BID 30 Days capsule. 07/29/20 Ergocalciferol [Vitamin D2 50,000 unit PO Q72H #10 cap 07/29/20 (ISDJUSTINE)] Ibuprofen [Motrin] 800 mg PO TID PRN #21 tab 07/29/20 Lurasidone [Latuda] 80 mg PO 1900 30 Days tab 07/29/20 levETIRAcetam [Keppra] 750 mg PO Q12HR tab 07/29/20 metroNIDAZOLE [Flagyl] 500 mg PO TID 7 Days tab 07/29/20 Allergies Allergy/AdvReac Type Severity Reaction Status Date / Time No Known Allergies Allergy Verified 07/25/20 20:46 Review of Systems ROS Statement: Those systems with pertinent positive or pertinent negative responses have been documented in the HPI. ROS Other: All systems not noted in ROS Statement are negative. Past Medical History Past Medical History: Fibromyalgia, Hypertension, Memory Impairment, Rheumatoid Arthritis (RA), Seizure Disorder, Thyroid Disorder Additional Past Medical History / Comment(s): brain stem tumor, surgan syndrome, DDD, sleep disorder, degenerative joint History of Any Multi-Drug Resistant Organisms: None Reported Past Surgical History: Section, Cholecystectomy, Uterine Ablation Additional Past Surgical History / Comment(s): brain tumor removed 2014, Jaime mosquera section X-5 Past Anesthesia/Blood Transfusion Reactions: No Reported Reaction Past Psychological History: Anxiety, Depression Smoking Status: Current every day smoker Past Alcohol Use History: Occasional Past Drug Use History: None Reported General Exam Limitations: no limitations Course Vital Signs 07/25/20 16:44 Temperature 98.7 F Pulse Rate 92 Respiratory 18 Rate Blood Pressure 113/81 O2 Sat by Pulse 100 Oximetry Medical Decision Making - Lab Data Result diagrams: 07/26/20 08:08 07/26/20 08:08 Lab Results 07/25/20 Range/Units 18:45 Urine Opiates Screen Detected H (NotDetected) Ur Oxycodone Screen Not Detected (NotDetected) Urine Methadone Screen Not Detected (NotDetected) Ur Propoxyphene Screen Not Detected (NotDetected) Ur Barbiturates Screen Not Detected (NotDetected) U Tricyclic Antidepress Not Detected (NotDetected) Ur Phencyclidine Scrn Not Detected (NotDetected) Ur Amphetamines Screen Not Detected (NotDetected) U Methamphetamines Scrn Not Detected (NotDetected) U Benzodiazepines Scrn Detected H (NotDetected) Urine Cocaine Screen Not Detected (NotDetected) U Marijuana (THC) Screen Not Detected (NotDetected) Disposition Clinical Impression: Suicidal ideation Disposition: ADMITTED IP TO THIS HOSP Condition: Fair Decision Time: 12:04
[2020-07-25] MEDS ORDERED: clonazePAM 1 MG TAB PO STA (17:59)
[2020-07-25] MEDS ORDERED: HYDROcodone/APAP 5-325MG 1 EACH TAB PO STA (17:59)
[2020-07-25 19:34] LABS: Amphetamine Screen,Urine Not Detected (NotDetected); Cocaine Screen,Urine Not Detected (NotDetected); Opiate Screen,Urine Detected (NotDetected); Phencyclidine Screen,Urine Not Detected (NotDetected); Urn Cannabinoid Scrn Not Detected (NotDetected)
[2020-07-25 19:35] LABS: Barbiturate Screen,Urine Not Detected (NotDetected); Benzodiazepines Screen,Urine Detected (NotDetected); Methadone Screen, Urine Not Detected (NotDetected); Oxycodone Screen, Urine Not Detected (NotDetected); Tricyclic Antidepressant,Urine Not Detected (NotDetected)
[2020-07-25] MEDS ORDERED: traZODone HCL 100 MG TAB PO SCH (21:00)
[2020-07-25] MEDS ORDERED: MAG HYDROX/AL HYDROX/SIMETH 30 ML CUP PO PRN (21:03)
[2020-07-25] MEDS ORDERED: MAGNESIUM HYDROXIDE 2,400 MG/10 ML CUP PO PRN (21:03)
[2020-07-25] MEDS ORDERED: HALOPERIDOL LACTATE 5 MG/ML 1 ML VIAL IM PRN (21:09)
[2020-07-25] MEDS: GABAPENTIN 300 MG CAP PO SCH (21:49)
[2020-07-25] MEDS: LORazepam 1 MG TAB PO PRN (21:49)
[2020-07-25] MEDS: traZODone HCL 100 MG TAB PO SCH (22:53)
[2020-07-26 08:41] LABS: Basophils % (A) 0 %; Eosinophils # (A) 0.1 k/uL (0-0.7); Eosinophils % (A) 1 %; HCT 43.4 % (34.0-46.0); HGB 13.8 gm/dL (11.4-16.0); Lymphocytes # (A) 2.9 k/uL (1.0-4.8); Lymphocytes % (A) 28 %; MCH 30.9 pg (25.0-35.0); MCHC 31.9 g/dL (31.0-37.0); Mean Platelet Volume 6.7; Monocytes # (A) 0.5 k/uL (0-1.0); Monocytes % (A) 5 %; Neutrophils # (A) 6.7 k/uL (1.3-7.7); Neutrophils % (A) 64 %; Platelet Count 312 k/uL (150-450); RBC 4.47 m/uL (3.80-5.40); RDW 13.9 % (11.5-15.5); WBC 10.4 k/uL (3.8-10.6)
[2020-07-26 08:50] LABS: ALT 12 U/L (4-34); AST 17 U/L (14-36); African American GFR (CKD) >90 (>60 ml/min/1.73 sqM); Albumin 4.3 g/dL (3.5-5.0); Alkaline Phosphatase 39 U/L (38-126); Anion Gap 7 mmol/L; Blood Urea Nitrogen 12 mg/dL (7-17); Calcium 9.4 mg/dL (8.4-10.2); Carbon Dioxide 22 mmol/L (22-30); Chloride 112 mmol/L (98-107); Cholesterol 230 mg/dL (<200); Glucose 89 mg/dL (74-99); HDL Cholesterol 44 mg/dL (40-60); LDL Cholesterol,Calculated 138 mg/dL (0-99); Non-African American GFR(CKD) 81 (>60 ml/min/1.73 sqM); Potassium 3.6 mmol/L (3.5-5.1); Sodium 141 mmol/L (137-145); Total Bilirubin 0.5 mg/dL (0.2-1.3); Total Protein 7.2 g/dL (6.3-8.2); Triglycerides 239 mg/dL (<150)
[2020-07-26] MEDS ORDERED: NICOTINE 14MG/24HR PATCH TRANSDERM SCH (09:00)
[2020-07-26] MEDS: ERGOCALCIFEROL 50,000 UNIT CAP PO SCH (09:07)
[2020-07-26] MEDS: PANTOPRAZOLE 40 MG TABLET PO SCH (09:07)
[2020-07-26] MEDS: clonazePAM 1 MG TAB PO SCH ×2 (09:07→21:51)
[2020-07-26] MEDS: LEVOTHYROXINE 125 MCG TAB PO SCH (09:07)
[2020-07-26] MEDS: TOPIRAMATE 100 MG TAB PO SCH ×2 (09:08→21:52)
[2020-07-26] MEDS: GABAPENTIN 300 MG CAP PO SCH ×3 (09:08→21:51)
[2020-07-26] MEDS: TRIAMTERENE-HCTZ 37.5-25MG 1 EACH CAP PO SCH (09:09)
[2020-07-26] MEDS: LOSARTAN-HCTZ 50-12.5 MG 1 EACH TAB PO SCH (09:10)
[2020-07-26] MEDS: ACETAMINOPHEN TAB 325 MG TAB PO PRN (09:11)
--- NOTE | 2020-07-26 09:59 | P.CONS ---
History of Present Illness - History of Present Illness This is a pleasant 40 years old female with past medical history of fibromyal mariusz, hypertension, rheumatoid arthritis and she follow up with Dr. Mustafa, seizure disorder and she follows up with Dr. Iglesias group the neurologist, also sees her for pain management, hypothyroidism, brainstem tumor, stroke rate syndrome, degenerative disc disease, chronic pain disorder, she follows up with Dr. Winter the orthopedic surgeon for hip problems and she uses a cane at home at baseline She was recently discharged from the psychiatric hospital for major depressive disorder and PTSD and borderline personality disorder. Presents this time to the mental health unit with depressed mood and suicidal ideation Medical consult was requested for medical management, patient denies any spec [facility] medical problems, no chest pain or dyspnea, no abdominal pain, no nausea vomiting, no change in urine or bowel habits. No fever. Patient this morning was sitting in her bed, she doesn't look any medical distress. She complained from her chronic pain in her neck and low back pain and knees and she wants her [place] 5 mg twice a day reordered. I checked her MAPS and she was on [place] 5 mg 60 tablets for 30 days as well as clonidine which is already ordered. Also patient confirms to me that she has history of seizure due to her brain tumor, and she told me she forgot to tell the mental health unit staff that she should be on Keppra 750 mg twice daily and she wanted to be reordered which I did. Also she told me she should be on Plaquenil 200 mg twice a day and she wants to be reordered and it is for her rheumatoid arthritis I offered to do test however patient declined stating she has tubal ligation. Risks, benefits and alternatives are explained for the patient and she verbalized understanding but refused the test Patient states that she has history of a brain tumor which was removed but now it recurs, patient told me she had [address] Iglesias and she is going to follow up with him within 1 week after discharge, patient told me she already has an appointment with him in 1-2 weeks however if she misses her appointment she's going to reschedule as she told me Review of Systems CONSTITUTIONAL: No fever, no malaise, no fatigue. HEENT: No recent visual problems or hearing problems. Denied any sore throat. CARDIOVASCULAR: No orthopnea, PND, no palpitations, no syncope. PULMONARY: No shortness of breath, no cough, no hemoptysis. GASTROINTESTINAL: No diarrhea, no nausea, no vomiting, no abdominal pain. Normoactive bowel sounds. NEUROLOGICAL: No headaches, no weakness, no numbness. HEMATOLOGICAL: Denies any bleeding or petechiae. GENITOURINARY: Denies any burning micturition, frequency, or urgency. MUSCULOSKELETAL/RHEUMATOLOGICAL: Denies any joint pain, swelling, or any muscle pain. ENDOCRINE: Denies any polyuria or polydipsia. Past Medical History Past Medical History: Fibromyalgia, Hypertension, Memory Impairment, Rheumatoid Arthritis (RA), Seizure Disorder, Thyroid Disorder Additional Past Medical History / Comment(s): brain stem tumor, surgan syndrome, DDD, sleep disorder, degenerative joint History of Any Multi-Drug Resistant Organisms: None Reported Past Surgical History: Section, Cholecystectomy, Uterine Ablation Additional Past Surgical History / Comment(s): brain tumor removed 2014, tummy maylin , C section X-5 Past Anesthesia/Blood Transfusion Reactions: No Reported Reaction Past Psychological History: Anxiety, Depression Smoking Status: Current every day smoker Past Alcohol Use History: Occasional Past Drug Use History: None Reported Medications and Allergies Home Medications Medication Instructions Recorded Confirmed Type Cyclobenzaprine [Flexeril] 10 mg PO BID PRN 08/05/17 07/25/20 History Ergocalciferol [Vitamin D2 50,000 unit PO Q72H 08/05/17 07/26/20 History (DRISDOL)] Gabapentin [Neurontin] 600 mg PO TID 08/05/17 07/25/20 History Levothyroxine Sodium [Synthroid] 125 mcg PO DAILY 08/05/17 07/25/20 History Losartan/Hydrochlorothiazide 1 tab PO DAILY 08/05/17 07/25/20 History [Losartan-Hctz 100-25 mg Tab] Triamterene/Hydrochlorothiazid 1 cap PO DAILY 08/05/17 07/25/20 History [Dyazide 37.5-25 Capsule] traZODone HCL [Desyrel] 200 mg PO HS 05/22/19 07/25/20 History DULoxetine HCL [Cymbalta] 60 mg PO HS 06/08/20 07/25/20 History HYDROcodone/APAP 5-325MG [[place] 1 tab PO BID 06/08/20 07/25/20 History 5-325] clonazePAM [KlonoPIN] 1 mg PO TID 06/08/20 07/25/20 History hydrOXYzine HCL [Atarax] 50 mg PO QID PRN 06/08/20 07/25/20 History Celecoxib [CeleBREX] 400 mg PO DAILY 07/25/20 07/25/20 History Diclofenac Sodium [Voltaren Gel] 2 gram TOPICAL QID PRN 07/25/20 07/25/20 History Hydroxychloroquine Sulfate 200 mg PO BID 07/25/20 07/25/20 History [Plaquenil] Lurasidone [Latuda] 40 mg PO AC-SUPPER 07/25/20 07/25/20 History Omeprazole 20 mg PO DAILY 07/25/20 07/25/20 History Topiramate [Topamax] 100 mg PO BID 07/25/20 07/25/20 History dexAMETHasone [Hexadrol] See Taper PO DAILY 07/25/20 07/25/20 History valACYclovir [Valtrex] 500 mg PO DAILY 07/25/20 07/25/20 History Allergies Allergy/AdvReac Type Severity Reaction Status Date / Time No Known Allergies Allergy Verified 07/25/20 20:46 Physical Exam Vitals: Vital Signs Temp Pulse Pulse Resp BP BP Pulse Ox 07/26/20 06:59 98.5 F 56 L 16 104/64 07/25/20 22:11 97.5 F L 84 16 110/55 96 07/25/20 16:44 98.7 F 92 18 113/81 100 Intake and Output 07/25/20 07/26/20 07/26/20 22:59 06:59 14:59 Other: Weight 81.193 kg GENERAL: The patient is alert and oriented x3, not in any acute distress. Well developed, well nourished. HEENT: Pupils are round and equally reacting to light. EOMI. No scleral icterus. No conjunctival pallor. Normocephalic, atraumatic. No pharyngeal erythema. No thyromegaly. CARDIOVASCULAR: S1 and S2 present. No murmurs, rubs, or gallops. PULMONARY: Chest is clear to auscultation, no wheezing or crackles. ABDOMEN: Soft, nontender, nondistended, normoactive bowel sounds. No palpable organomegaly. MUSCULOSKELETAL: No joint swelling or deformity. EXTREMITIES: No cyanosis, clubbing, or pedal edema. NEUROLOGICAL: Gross neurological examination did not reveal any focal deficits. SKIN: No rashes. no petechiae. Gait: Normal, patient can get up out of bed quickly Results CBC & Chem 7: 07/26/20 08:08 07/26/20 08:08 Labs: Abnormal Lab Results - Last 24 Hours (Table) 07/25/20 Range/Units 18:45 Urine Opiates Screen Detected H (NotDetected) U Benzodiazepines Scrn Detected H (NotDetected) Assessment and Plan Assessment: -Major depression with suicidal ideation and other psychiatric illnesses, management as per primary psych he team -Fibromyalgia, continue same treatment. MAPS was checked and she is on [place] -Hypertension, continue same treatment -Rheumatoid arthritis, continue same treatment. Patient wants her Plaquenil reordered -Seizure disorder, continue same treatment and follow-up with Dr. Iglesias as an outpatient. Patient wants her Keppra reordered. Continue with seizure medication -Hypothyroidism -Degenerative disc disease and she follow up with Dr. Winter as an outpatient. Continue same treatment -Chronic pain syndrome -History of brainstem tumor DVT and GI prophylaxis, no need as patient is mobile and normal respiratory effort. I instructed patient to bring her list of medication and provided to the staff to make sure its accurate and up-to-date and she agreed, discussed with staff as well We recommend patient follow up with her PCP upon discharge and she was instructed with same Also I instructed patient to follow-up with her neurologist Dr. Iglesias once she is been discharged within 1-2 weeks and she agrees to call and make her own appointment Thank you for consulting us, we will see the patient on as needed basis. Please feel free to contact us or call us for any further question or clarification
[2020-07-26] MEDS: NICOTINE 21MG/24HR PATCH TRANSDERM SCH (10:12)
[2020-07-26] MEDS: LORazepam 1 MG TAB PO PRN ×2 (10:13→17:32)
[2020-07-26] MEDS: HYDROcodone/APAP 5-325MG 1 EACH TAB PO PRN (10:13)
[2020-07-26] MEDS: LURASIDONE 40 MG TAB PO SCH (12:58)
[2020-07-26] MEDS: haloperidoL 5 MG TAB PO PRN (13:02)
[2020-07-26 19:59] LABS: Hemoglobin A1C 5.4 % (4.0-6.0)
[2020-07-26] MEDS ORDERED: traZODone HCL 100 MG TAB PO SCH (21:00)
[2020-07-26] MEDS ORDERED: DULoxetine HCL 60 MG CAPSULE.DR PO SCH (21:00)
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
[2020-07-26] MEDS: DULoxetine HCL 30 MG CAPSULE.DR PO SCH (21:52)
[2020-07-26] MEDS: traZODone HCL 100 MG TAB PO SCH (21:52)
[2020-07-26] MEDS: HYDROXYCHLOROQUINE SULFATE 200 MG TAB PO SCH (21:52)
[2020-07-27] MEDS: LEVOTHYROXINE 125 MCG TAB PO SCH (06:43)
[2020-07-27] MEDS: HYDROcodone/APAP 5-325MG 1 EACH TAB PO PRN ×2 (06:49→21:15)
[2020-07-27] MEDS: LORazepam 1 MG TAB PO PRN ×2 (06:52→16:58)
[2020-07-27] MEDS: PANTOPRAZOLE 40 MG TABLET PO SCH (08:54)
[2020-07-27] MEDS: GABAPENTIN 300 MG CAP PO SCH ×3 (08:55→21:14)
[2020-07-27] MEDS: clonazePAM 1 MG TAB PO SCH ×2 (08:55→21:14)
[2020-07-27] MEDS: LOSARTAN-HCTZ 50-12.5 MG 1 EACH TAB PO SCH (08:56)
[2020-07-27] MEDS: NICOTINE 21MG/24HR PATCH TRANSDERM SCH (08:56)
[2020-07-27] MEDS: LURASIDONE 40 MG TAB PO SCH (08:56)
[2020-07-27] MEDS: HYDROXYCHLOROQUINE SULFATE 200 MG TAB PO SCH ×2 (08:56→21:16)
[2020-07-27] MEDS: TOPIRAMATE 100 MG TAB PO SCH ×2 (08:57→21:16)
[2020-07-27] MEDS: valACYclovir 500 MG TAB PO SCH (08:57)
[2020-07-27] MEDS: TRIAMTERENE-HCTZ 37.5-25MG 1 EACH CAP PO SCH (08:57)
[2020-07-27] MEDS: haloperidoL 5 MG TAB PO PRN (11:44)
--- NOTE | 2020-07-27 13:36 | P.PN ---
Progress Note - Text Progress Note Date: 07/27/20 Subjective: Patient was seen today as a cross coverage for . The patient was evaluated, chart reviewed, case discussed with the treatment team. Patient reports better sleep last night, and appetite was reported as "fine ". Patient has not been going to groups and other unit activities. The patient is compliant with her medications and denies any adverse reactions. She reports feeling better today with his depression. Denies any suicidal thoughts today, and reports last time had as I was 2 days ago. She minimizes mood swings and reports her anger is better controlled. Minimizes agitation and he denies any current manic symptoms. Denies any physical symptoms besides her chronic pain. Objective: Vitals has been reviewed. MENTAL STATUS EVALUATION: Appearance: Appears stated age, fairly groomed, above average body built, and no specific features. Gait/ posture: Steady gait, normal arm swinging, no abnormal movements, with relaxed posture. Attitude and Behavior: cooperative, related to the interviewer in socially accepted manner, intermittent eye contact during course of interview. Motor Activity: normal psychomotor activity. Speech: spontaneous, Normal rate, rhythm, and articulation. normal volume. Not pressured. Language: Articulating, naming objects and repeat phrases. Mood: Depressed, Affect: Constricted Thought process: Negative, linear, not tangential or circumstantial. Thought content: Denies delusions, reports suicidal thoughts, denies homicidal thoughts, no intentions, or plans. Perception: Denies any hallucinations Alertness: No impairment. Concentration: Impaired Orientation: Patient was alert and oriented to time, person and situation Insight regarding psychiatric condition: fair Judgment regarding daily activities and social situation: fair Impulse control: fair Assessment: Bipolar disorder, most recent episode depressive without psychotic features. Posttraumatic stress disorder. Borderline Personality disorder Plan: Continue inpatient level of care due to need for further stabilization . Precautions: Continue 15 minutes check for safety. Consider medical consultation if any acute medical issues arises. Provide the patient individual, group therapy, substance use disorder counseling to give better insight and learn coping skills. Medications: Continue Cymbalta and increase dose to 90 mg daily for depression and anxiety. Continue Latuda and increase dose to 60 mg with dinner for mood stabilization Continue Klonopin 1 mg 3 times a day for anxiety. Continue trazodone 200 mg at bedtime as needed for insomnia. Continue Vistaril as needed for anxiety. Discharge patient to OUTPATIENT services upon a stabilization
[2020-07-27] MEDS ORDERED: FLUCONAZOLE ORAL SUSP 1,400 MG/35 ML BOTTLE PO ONE (16:26)
[2020-07-27] MEDS: metroNIDAZOLE 500 MG TAB PO SCH ×2 (17:33→21:16)
[2020-07-27] MEDS ORDERED: MICONAZOLE NITRATE 4%/2% VAG CREAM KIT VAGINAL SCH (21:00)
[2020-07-27] MEDS: traZODone HCL 100 MG TAB PO SCH (21:16)
[2020-07-27] MEDS: DULoxetine HCL 30 MG CAPSULE.DR PO SCH (21:16)
[2020-07-27] MEDS: TERCONAZOLE 0.8% VAGINAL CREAM 20 GM TUBE VAGINAL SCH (21:17)
[2020-07-28] MEDS: LEVOTHYROXINE 125 MCG TAB PO SCH (06:13)
[2020-07-28] MEDS: HYDROcodone/APAP 5-325MG 1 EACH TAB PO PRN ×2 (06:16→19:03)
[2020-07-28] MEDS: LORazepam 1 MG TAB PO PRN ×2 (06:20→14:53)
[2020-07-28] MEDS: LOSARTAN-HCTZ 50-12.5 MG 1 EACH TAB PO SCH (09:20)
[2020-07-28] MEDS: valACYclovir 500 MG TAB PO SCH (09:23)
[2020-07-28] MEDS: PANTOPRAZOLE 40 MG TABLET PO SCH (09:23)
[2020-07-28] MEDS: metroNIDAZOLE 500 MG TAB PO SCH ×3 (09:23→20:55)
[2020-07-28] MEDS: NICOTINE 21MG/24HR PATCH TRANSDERM SCH (09:23)
[2020-07-28] MEDS: clonazePAM 1 MG TAB PO SCH ×2 (09:23→20:53)
[2020-07-28] MEDS: GABAPENTIN 300 MG CAP PO SCH ×3 (09:23→20:55)
[2020-07-28] MEDS: TRIAMTERENE-HCTZ 37.5-25MG 1 EACH CAP PO SCH (09:23)
[2020-07-28] MEDS: HYDROXYCHLOROQUINE SULFATE 200 MG TAB PO SCH ×2 (09:23→20:54)
[2020-07-28] MEDS: LURASIDONE 40 MG TAB PO SCH (09:24)
[2020-07-28] MEDS: TOPIRAMATE 100 MG TAB PO SCH ×2 (09:24→20:54)
[2020-07-28] MEDS: ACETAMINOPHEN TAB 325 MG TAB PO PRN (09:32)
[2020-07-28] MEDS ORDERED: CYCLOBENZAPRINE 10 MG TAB PO PRN (14:26)
--- NOTE | 2020-07-28 14:38 | P.PN ---
Progress Note - Text Progress Note Date: 07/28/20 I reviewed medical records ,did interview patient and case was discussed in treatment team PHYSICAL: c/o of back pain ,rates her pain 10/10 ,10 being the worst Slept 7 hours ,minimal participation in groups No behavior issues ,no agitation Interval history: Patient was in AT group and agreed to follow me to office ,stated that she has been feeling better however still having back pain and "Does make me frustrated" .Denies any sleeping or appetite problem,stated that she supposed to start DBT groups but she did not have anyone to babysit her 7 years old son who is currently staying with his dad during her hospitalization,she denies any manic features ,denies any anxiety or panic attack She denies any current suicidal or homicidal ideation , she denies any hallucination or delusional thinking ,denies any idea or reference Mental status exam: Patient was wearing street cloth , trying to be cooperative ,speech is spontaneous and coherent ,stated mood ""In pain",affect is constricted denies any hallucination ,denies delusional thinking or idea of reference ,denies any suicidal or homicidal ideation, , concrete in her thinking insight and judgment are fair ASSESSMENT: Bipolar II ,current episode depressed PLAN: Patient continues to meet criteria for inpatient psychiatric admission for symptom stabilization and safety. Increase Latuda 80 mg ,continue Cymbalta 90 mg ,Add Motrin and Flexeril PRN ,encourage groups participation
[2020-07-28] MEDS: IBUPROFEN 800 MG TAB PO PRN (14:53)
[2020-07-28] MEDS: haloperidoL 5 MG TAB PO PRN (19:04)
[2020-07-28] MEDS: DULoxetine HCL 30 MG CAPSULE.DR PO SCH (20:53)
[2020-07-28] MEDS: traZODone HCL 100 MG TAB PO SCH (20:54)
[2020-07-28] MEDS: TERCONAZOLE 0.8% VAGINAL CREAM 20 GM TUBE VAGINAL SCH (20:55)
[2020-07-29] MEDS: LORazepam 1 MG TAB PO PRN ×2 (03:28→11:48)
[2020-07-29] MEDS: IBUPROFEN 800 MG TAB PO PRN (03:28)
[2020-07-29 03:29] VITALS: TEMP 97.9
[2020-07-29] MEDS: LEVOTHYROXINE 125 MCG TAB PO SCH (06:36)
[2020-07-29] MEDS: PANTOPRAZOLE 40 MG TABLET PO SCH (08:33)
[2020-07-29] MEDS: NICOTINE 21MG/24HR PATCH TRANSDERM SCH (08:33)
[2020-07-29] MEDS: HYDROXYCHLOROQUINE SULFATE 200 MG TAB PO SCH (08:34)
[2020-07-29] MEDS: clonazePAM 1 MG TAB PO SCH (08:34)
[2020-07-29] MEDS: ERGOCALCIFEROL 50,000 UNIT CAP PO SCH (08:34)
[2020-07-29] MEDS: GABAPENTIN 300 MG CAP PO SCH (08:34)
[2020-07-29] MEDS: TOPIRAMATE 100 MG TAB PO SCH (08:35)
[2020-07-29] MEDS: LOSARTAN-HCTZ 50-12.5 MG 1 EACH TAB PO SCH (08:35)
[2020-07-29] MEDS: metroNIDAZOLE 500 MG TAB PO SCH (08:35)
[2020-07-29] MEDS: TRIAMTERENE-HCTZ 37.5-25MG 1 EACH CAP PO SCH (08:36)
[2020-07-29] MEDS: valACYclovir 500 MG TAB PO SCH (08:36)
[2020-07-29 08:42] VITALS: RESP 18
[2020-07-29] MEDS ORDERED: DULoxetine HCL 60 MG CAPSULE.DR PO SCH (09:00)
--- NOTE | 2020-07-29 11:05 | DS ---
DISCHARGE SUMMARY ADMITTING DATE: 07/25/2020 DISCHARGE DATE: 07/29/2020. SHOVELER: Jeremías Flowers MD for H and P and medical management. HISTORY OF PRESENT ILLNESS: The patient is 40 years, female, unemployed. Has extensive history of chronic depression, eating disorder, anxiety and borderline personality disorder. Patient was admitted to the hospital with severe depression and suicidal ideation. Patient was recently on our unit in June 06 for 2 weeks and was discharged on Abilify, Cymbalta, Wellbutrin, and trazodone and Neurontin. Patient reported that she came back to the ER after her discharge June 17 and she was admitted to [facility] for 1 week, as she did have a reaction to Abilify. In addition, according to her, she started having seizure because of Wellbutrin. At the time of admission, she stated that she has been severely depressed as one of her children went to boarding school in [place] and the other child left to a different state and she was feeling lonely, severely depressed and suicidal. The patient also presented with continued PTSD symptom and flashback and nightmares related to the loss of her son who about 10 years ago. The patient had history of poor impulse control over spending money and getting more interested in sex. Based on this history of mood swing with outbursts of anger and easily irritated, patient was diagnosed with bipolar disorder. For complete H and P, please refer to H and P dictated by Dr. Juanjo Fuller on July 26. HOSPITAL COURSE: The patient was admitted on voluntary basis to the psychiatric unit. We provided her with psychotherapy medication and group therapy. She was seen by the medical doctor and she was diagnosed with fibromyalgia, hypertension, rheumatoid arthritis, seizure disorder and brain stem tumor. In addition to this patient has chronic degenerative disc disease and hypothyroidism. The clinical practice consultant continue her on her medications that included Tranquillity for pain and Klonopin 1 mg twice a day. In addition, we continued her on trazodone 200 at bedtime for sleep. The patient was started on Latuda when she was at [facility] so we had gradually titrate Latuda to 80 mg daily as a mood stabilizer. In addition, she was started back on Cymbalta and will gradually increase this to 120 mg to target her depression and her chronic pain. The patient was able to tolerate this medication without having any side effects. The patient was attending most of the therapeutic groups and she was interacting with other peers and staff and she was not avoided interaction as her previous admission in April. The patient did not have any episodes of aggression or violent or behavior dyscontrol. MENTAL STATUS EXAMINATION: Patient presented as casually groomed female living, pleasant on approach. Affect is blunted, stated mood better. There is no psychomotor agitation. Her speech was spontaneous, but decreased in rate and rhythm. She denied any homicidal or suicidal ideation. She denied feeling hopeless or helpless. She denied any paranoia or auditory or visual hallucination. Association more coherent, logical. Her insight and judgment are fair. DISCHARGE DIAGNOSES: 1. Major depression, recurrent versus bipolar disorder type 2 depressed. 2. History of posttraumatic stress disorder. 3. Borderline personality disorder. DISCHARGE MEDICATION: The patient to continue her gabapentin 600 mg 3 times a day. Flexeril 10 mg twice a day. Synthroid 125 mcg daily. Trazodone 200 mg at bedtime. Topamax twice a day, Vistaril 50 mg t.i.d. p.r.n., Klonopin 1 mg twice a day, Cymbalta 60 mg twice a day, and she was given 4 week supply of Cymbalta, Latuda 80 mg and she was given 4 week supply. Please for the rest of her medication, refer to the discharge sheet. RECOMMENDATION: I would recommend that the patient will start DBT therapy. The patient to follow up with [facility]. She has to stop smoking and to avoid the use of street drugs or alcohol and take the medication as prescribed. MMODL / IJN: [id number] /
[2020-07-29 11:46] VITALS: BP 101/68; PULSE 78
[2020-07-29] MEDS ORDERED: LURASIDONE 80 MG TAB PO SCH (19:00)
== END 2020-07-29 12:42 | disposition home or self-care (01) | DRG 885 ==
LOC: EC 16:38 → 3MHU 20:28
PROVIDERS: ADMIT Psychiatry & Neurology Psychiatry; ATTEND Psychiatry & Neurology Psychiatry
DX: F33.9 Major depressive disorder, recurrent, unspecified (principal); R45.851 Suicidal ideations; F31.81 Bipolar II disorder; G40.909 Epilepsy, unspecified, not intractable, without status epilepticus; M06.9 Rheumatoid arthritis, unspecified; M35.00 Sjogren syndrome, unspecified; F60.3 Borderline personality disorder; E03.9 Hypothyroidism, unspecified; F17.210 Nicotine dependence, cigarettes, uncomplicated; F43.10 Post-traumatic stress disorder, unspecified; G89.4 Chronic pain syndrome; I10 Essential (primary) hypertension; M79.7 Fibromyalgia; G47.9 Sleep disorder, unspecified; M54.2 Cervicalgia; M54.5 Low back pain; M25.562 Pain in left knee; M25.561 Pain in right knee; M19.90 Unspecified osteoarthritis, unspecified site; F41.9 Anxiety disorder, unspecified; R41.3 Other amnesia; Z79.1 Long term (current) use of non-steroidal anti-inflammatories (NSAID); Z79.890 Hormone replacement therapy; Z79.899 Other long term (current) drug therapy; Z86.59 Personal history of other mental and behavioral disorders; Z62.810 Personal history of physical and sexual abuse in childhood; Z90.49 Acquired absence of other specified parts of digestive tract; Z98.890 Other specified postprocedural states; Z98.51 Tubal ligation status
CPT/HCPCS: 80053; 80061; 80306; 82075; 83036; 84443; 85025; 93005; 99285

== ENCOUNTER → 2020-12-19 | Outpatient (CLI) | payer OTHER ==
--- NOTE | 2020-12-19 21:20 | MR ---
EXAMINATION TYPE: MR brain wo/w con DATE OF EXAM: 12/19/2020 COMPARISON: 11/17/2019 HISTORY: Cerebral cyst changes, follow up. CONTRAST: Performed utilizing 9 mL intravenous Gadavist gadolinium contrast. TECHNIQUE: Multiplanar, multiecho imaging on a 3.0 Marilynn magnet is performed through the brain. Stud y is performed within 24 hours of arrival to the hospital. The craniovertebral junction is normal. The pituitary is normal. Optic chiasm is visualized is norm al. The cystlike area which is hyperintense on T2-weighted sequences between the left and right vertebral arteries anterior to the medullary brainstem currently measures 1.1 x 0.5 cm. Prior measurement 1.1 x 0.6 cm. Diffusion-weighted imaging is performed. No abnormal hyperintensity is present to suggest an acute i ntracranial infarct or acute ischemic change. A few scattered deep white matter hyperintensities are present. These are nonspecific and not out of proportion to patient's age. Consider migraine headaches. Hypervascular ischemic change could be cons idered Ventricles and sulci are appropriate for the patient age. No suspicious enhancement is evident. IMPRESSIONS: 1. Stable cystlike area anterior to the medullary brainstem. 2. Nonspecific punctate white matter changes better visualized but present previously and apparently stable.
== END | disposition home or self-care (01) ==
LOC: RADMRIMAIN 19:34
PROVIDERS: ATTEND Family Medicine
DX: G93.0 Cerebral cysts (principal); R90.89 Other abnormal findings on diagnostic imaging of central nervous system
CPT/HCPCS: 70553; A9585

== ENCOUNTER 2021-01-05 19:45 | Observation (INO) | payer OTHER ==
[2021-01-05 20:23] LABS: Basophils % (A) 1 %; Eosinophils # (A) 0.1 k/uL (0-0.7); Eosinophils % (A) 1 %; HCT 39.8 % (34.0-46.0); Lymphocytes # (A) 2.4 k/uL (1.0-4.8); Lymphocytes % (A) 25 %; MCH 31.4 pg (25.0-35.0); MCHC 32.7 g/dL (31.0-37.0); MCV 95.9 fL (80.0-100.0); Mean Platelet Volume 6.5; Monocytes # (A) 0.4 k/uL (0-1.0); Monocytes % (A) 4 %; Neutrophils # (A) 6.4 k/uL (1.3-7.7); Neutrophils % (A) 68 %; Platelet Count 346 k/uL (150-450); RBC 4.15 m/uL (3.80-5.40); RDW 13.3 % (11.5-15.5); WBC 9.4 k/uL (3.8-10.6)
[2021-01-05] MEDS ORDERED: MORPHINE SULFATE 4 MG/ML SYRINGE IV STA (20:25)
[2021-01-05] MEDS ORDERED: SODIUM CHLORIDE 0.9% 1,000 ML IV STA (20:25)
--- NOTE | 2021-01-05 20:29 | ED ---
General Adult HPI - General Chief complaint: Abdominal Pain Stated complaint: ABD pain Time Seen by Provider: 01/05/21 19:59 Source: patient, family Mode of arrival: ambulatory Limitations: no limitations - History of Present Illness Initial comments: Dictation was produced using [employer] dictation software. please excuse any grammatical, word or spelling errors. This patient was cared for during a federal and state declared state of emergency secondary to Covid 19 Chief Complaint: 40-year-old female presents to the emergency department for abdominal pain. History of Present Illness: 40-year-old female she has past medical history of cholecystectomy. She presents today with left lower quadrant abdominal pain that spent ongoing for a week. She has been having some bouts of diarrhea does not bilious nonbloody. She has a history of cholecystectomy. Patient states that her pain is severe and to the left lower quadrant radiating to the back. She points of nausea but no vomiting. It has any constitutional symptoms. No fevers or night sweats. She does complain of pain with sexual intercourse. Denies any urinary symptoms The ROS documented in this emergency department record has been reviewed and confirmed by me. Those systems with pertinent positive or negative responses have been documented in the HPI. All other systems are other negative and/or noncontributory. PHYSICAL EXAM: General Impression: Alert and oriented x3, acute distress secondary to pain HEENT: Normocephalic atraumatic, extra-ocular movements intact, pupils equal and reactive to light bilaterally, mucous membranes moist. Cardiovascular: Heart regular rate and rhythm Chest: Able to complete full sentences, no retractions, no tachypnea Abdomen: abdomen soft, tenderness to the left lower quadrant, no pain at McBurney's, non-distended, no organomegaly Musculoskeletal: Pulses present and equal in all extremities, no peripheral edema Motor: no focal deficits noted Neurological: CN II-XII grossly intact, no focal motor or sensory deficits noted Skin: Intact with no visualized rashes Psych: Normal affect and mood ED course: 40-year-old female presents with severe left lower quadrant abdominal pain ongoing for approximately 7 days. Vital signs upon arrival are within acceptable limits Return evaluation unremarkable. CBC shows no leukocytosis. Hemoglobin stable. Metabolic panel is unremarkable. Urinalysis shows nitrite positivity with 9 white blood cells. Computed tomography scan of the abdomen and pelvis shows findings consistent with urinary bladder wall thickening. Clinical presentation consistent with acute cystitis. Patient given 1 g of ceftriaxone. She was given IV analgesia with slight improvement of symptoms.Patient requested to be admitted. Considering patient's symptoms of intractable pelvic pain we'll have patient admitted. Case was discussed with Dr. Roni bundy except patient's care to observation for IV antibiotics and continued pain control. - Related Data Home Medications Medication Instructions Recorded Confirmed Cyclobenzaprine [Flexeril] 5 mg PO BID 08/05/17 01/05/21 Gabapentin [Neurontin] 600 mg PO TID 08/05/17 01/05/21 Levothyroxine Sodium [Synthroid] 125 mcg PO DAILY 08/05/17 01/05/21 Losartan/Hydrochlorothiazide 1 tab PO DAILY 08/05/17 01/05/21 [Losartan-Hctz 100-25 mg Tab] Triamterene/Hydrochlorothiazid 1 cap PO DAILY 08/05/17 01/05/21 [Dyazide 37.5-25 Capsule] traZODone HCL [Desyrel] 200 mg PO HS 05/22/19 01/05/21 HYDROcodone/APAP 5-325MG [[place] 1 tab PO BID 06/08/20 01/05/21 5-325] clonazePAM [KlonoPIN] 1 mg PO QID 06/08/20 01/05/21 Celecoxib [CeleBREX] 400 mg PO DAILY 07/25/20 01/05/21 Omeprazole 20 mg PO DAILY 07/25/20 01/05/21 Topiramate [Topamax] 100 mg PO BID 07/25/20 01/05/21 valACYclovir [Valtrex] 500 mg PO DAILY 07/25/20 01/05/21 Cyclobenzaprine [Flexeril] 10 mg PO HS PRN 01/05/21 01/05/21 DULoxetine HCL [Cymbalta] 120 mg PO DAILY 01/05/21 01/05/21 Galcanezumab-Gnlm [Emgality] 120 mg SQ Q30D 01/05/21 01/05/21 Imipramine [Tofranil] 25 mg PO QID 01/05/21 01/05/21 Phentermine HCl [Adipex-P] 37.5 mg PO DAILY 01/05/21 01/05/21 cloNIDine HCL [Catapres] 0.1 mg PO HS PRN 01/05/21 01/05/21 Allergies Allergy/AdvReac Type Severity Reaction Status Date / Time No Known Allergies Allergy Verified 01/05/21 21:30 Review of Systems ROS Statement: Those systems with pertinent positive or pertinent negative responses have been documented in the HPI. ROS Other: All systems not noted in ROS Statement are negative. Past Medical History Past Medical History: Fibromyalgia, Hypertension, Memory Impairment, Rheumatoid Arthritis (RA), Seizure Disorder, Thyroid Disorder Additional Past Medical History / Comment(s): brain stem tumor, surgan syndrome, DDD, sleep disorder, degenerative joint History of Any Multi-Drug Resistant Organisms: None Reported Past Surgical History: Section, Cholecystectomy, Uterine Ablation Additional Past Surgical History / Comment(s): brain tumor removed 2014, jennifer carlisle , Jaime section X-5 Past Anesthesia/Blood Transfusion Reactions: No Reported Reaction Past Psychological History: Anxiety, Depression Smoking Status: Current every day smoker Past Alcohol Use History: Occasional Past Drug Use History: None Reported General Exam Limitations: no limitations Course Vital Signs 01/05/21 19:51 Temperature 98.3 F Pulse Rate 73 Respiratory 18 Rate Blood Pressure 147/63 O2 Sat by Pulse 97 Oximetry Medical Decision Making - Lab Data Result diagrams: 01/05/21 20:10 01/05/21 20:10 Lab Results 01/05/21 01/05/21 01/05/21 Range/Units 20:10 20:10 20:10 WBC 9.4 (3.8-10.6) k/uL RBC 4.15 (3.80-5.40) m/uL Hgb 13.0 (11.4-16.0) gm/dL Hct 39.8 (34.0-46.0) % MCV 95.9 (80.0-100.0) fL MCH 31.4 (25.0-35.0) pg MCHC 32.7 (31.0-37.0) g/dL RDW 13.3 (11.5-15.5) % Plt Count 346 (150-450) k/uL MPV 6.5 Neutrophils % 68 % Lymphocytes % 25 % Monocytes % 4 % Eosinophils % 1 % Basophils % 1 % Neutrophils # 6.4 (1.3-7.7) k/uL Lymphocytes # 2.4 (1.0-4.8) k/uL Monocytes # 0.4 (0-1.0) k/uL Eosinophils # 0.1 (0-0.7) k/uL Basophils # 0.0 (0-0.2) k/uL Sodium (137-145) mmol/L Potassium (3.5-5.1) mmol/L Chloride (98-107) mmol/L Carbon Dioxide (22-30) mmol/L Anion Gap mmol/L BUN (7-17) mg/dL Creatinine (0.52-1.04) mg/dL Est GFR (CKD-EPI)AfAm (>60 ml/min/1.73 sqM) Est GFR (CKD-EPI)NonAf (>60 ml/min/1.73 sqM) Glucose (74-99) mg/dL Calcium (8.4-10.2) mg/dL Total Bilirubin (0.2-1.3) mg/dL AST (14-36) U/L ALT (4-34) U/L Alkaline Phosphatase (38-126) U/L Total Protein (6.3-8.2) g/dL Albumin (3.5-5.0) g/dL Lipase (23-300) U/L Urine Color Yellow Urine Appearance Cloudy H (Clear) Urine pH 7.0 (5.0-8.0) Ur Specific [place] 1.016 (1.001-1.035) Urine Protein Negative (Negative) Urine Glucose (UA) Negative (Negative) Urine Ketones Negative (Negative) Urine Blood Negative (Negative) Urine Nitrite Positive H (Negative) Urine Bilirubin Negative (Negative) Urine Urobilinogen <2.0 (<2.0) mg/dL Ur Leukocyte Esterase Small H (Negative) Urine RBC 2 (0-5) /hpf Urine WBC 9 H (0-5) /hpf Ur Squamous Epith Cells 2 (0-4) /hpf Urine Bacteria Occasional H (None) /hpf Urine Mucus Rare H (None) /hpf Urine Yeast (Budding) Occasional H (None) /hpf Urine HCG, Qual Not Detected (Not Detectd) 01/05/21 Range/Units 20:10 WBC (3.8-10.6) k/uL RBC (3.80-5.40) m/uL Hgb (11.4-16.0) gm/dL Hct (34.0-46.0) % MCV (80.0-100.0) fL MCH (25.0-35.0) pg MCHC (31.0-37.0) g/dL RDW (11.5-15.5) % Plt Count (150-450) k/uL MPV Neutrophils % % Lymphocytes % % Monocytes % % Eosinophils % % Basophils % % Neutrophils # (1.3-7.7) k/uL Lymphocytes # (1.0-4.8) k/uL Monocytes # (0-1.0) k/uL Eosinophils # (0-0.7) k/uL Basophils # (0-0.2) k/uL Sodium 137 (137-145) mmol/L Potassium 4.0 (3.5-5.1) mmol/L Chloride 105 (98-107) mmol/L Carbon Dioxide 23 (22-30) mmol/L Anion Gap 9 mmol/L BUN 10 (7-17) mg/dL Creatinine 1.02 (0.52-1.04) mg/dL Est GFR (CKD-EPI)AfAm 80 (>60 ml/min/1.73 sqM) Est GFR (CKD-EPI)NonAf 69 (>60 ml/min/1.73 sqM) Glucose 109 H (74-99) mg/dL Calcium 9.1 (8.4-10.2) mg/dL Total Bilirubin 0.3 (0.2-1.3) mg/dL AST 17 (14-36) U/L ALT 11 (4-34) U/L Alkaline Phosphatase 43 (38-126) U/L Total Protein 6.6 (6.3-8.2) g/dL Albumin 4.0 (3.5-5.0) g/dL Lipase 124 (23-300) U/L Urine Color Urine Appearance (Clear) Urine pH (5.0-8.0) Ur Specific [place] (1.001-1.035) Urine Protein (Negative) Urine Glucose (UA) (Negative) Urine Ketones (Negative) Urine Blood (Negative) Urine Nitrite (Negative) Urine Bilirubin (Negative) Urine Urobilinogen (<2.0) mg/dL Ur Leukocyte Esterase (Negative) Urine RBC (0-5) /hpf Urine WBC (0-5) /hpf Ur Squamous Epith Cells (0-4) /hpf Urine Bacteria (None) /hpf Urine Mucus (None) /hpf Urine Yeast (Budding) (None) /hpf Urine HCG, Qual (Not Detectd) Disposition Clinical Impression: Cystitis Disposition: ADMITTED IP TO THIS HOSP Condition: Fair Referrals: Mahsa Tamayo MD [Primary Care Provider] - 1-2 days Decision Time: 22:11
[2021-01-05 20:34] LABS: Appearance,Urine Cloudy (Clear); Bacteria,Urine Occasional /hpf; Bilirubin,Urine Negative (Negative); Blood,Urine Negative (Negative); Budding Yeast,Urine Occasional /hpf; Color,Urine Yellow; Glucose,Urine (UA) Negative (Negative); Ketones,Urine Negative (Negative); Leukocyte Esterase,Urine Small (Negative); Mucus,Urine Rare /hpf; Nitrite,Urine Positive (Negative); Protein,Urine Negative (Negative); RBC,Urine 2 /hpf (0-5); Specific Gravity,Urine 1.016 (1.001-1.035); Squamous Epithelial Cell,Urine 2 /hpf (0-4); Urobilinogen,Urine <2.0 mg/dL (<2.0); WBC,Urine 9 /hpf (0-5)
[2021-01-05 20:42] LABS: Calcium 9.1 mg/dL (8.4-10.2); Total Bilirubin 0.3 mg/dL (0.2-1.3); Total Protein 6.6 g/dL (6.3-8.2)
[2021-01-05] MEDS ORDERED: HYDROmorphone 0.5 MG/0.5 ML SYRINGE IVP STA (20:47)
--- NOTE | 2021-01-05 21:22 | CT ---
EXAMINATION TYPE: CT abdomen pelvis w con DATE OF EXAM: 01/05/2021 COMPARISON: None available. HISTORY: Left lower quadrant pain after intercourse yesterday. CT DLP: 1219.5 mGycm Automated exposure control for dose reduction was used. TECHNIQUE: Helical acquisition of images was performed from the lung bases through the pelvis. CONTRAST: Performed without Oral Contrast and with IV Contrast, patient injected with 100 mL of Isovue 300. FINDINGS: LUNG BASES: Mild bibasilar platelike opacities, compatible with atelectasis. LIVER/GB: No acute abnormality is appreciated. Cholecystectomy is seen. PANCREAS: No significant abnormality is seen. SPLEEN: No significant abnormality is seen. ADRENALS: No significant abnormality is seen. KIDNEYS: No significant abnormality is seen. FREE AIR: No free air is visualized. RETROPERITONEAL ADENOPATHY: None visualized REPRODUCTIVE ORGANS: No significant abnormality is seen URINARY BLADDER: Mild urinary bladder wall thickening. PELVIC ADENOPATHY: None visualized. OSSEOUS STRUCTURES: No significant abnormality is seen. BOWEL: No bowel obstruction, free air or fluid. Nonspecific partially decompressed colon. OTHER: None IMPRESSION: URINARY BLADDER WALL THICKENING. CORRELATE FOR POSSIBLE CYSTITIS VERSUS DECOMPRESSED STATE. MILD BIBASILAR ATELECTASIS. SUPERIMPOSED INFILTRATE IS BETTER EXCLUDED CLINICALLY. OTHERWISE NO ACUTE ABNORMALITY SEEN.
[2021-01-05] MEDS ORDERED: cefTRIAXone IN SWFI 1,000 MG/10 ML SYRINGE IVP STA (21:26)
[2021-01-05] MEDS ORDERED: HYDROmorphone 1 MG/ML 1 ML SYRINGE IVP STA (21:34)
[2021-01-05] MEDS ORDERED: HYDROmorphone 2 MG TAB PO PRN (22:11)
[2021-01-05] MEDS ORDERED: ACETAMINOPHEN TAB 325 MG TAB PO PRN (22:11)
[2021-01-05] MEDS ORDERED: ONDANSETRON 4 MG/2 ML VIAL IVP PRN (22:11)
[2021-01-05] MEDS ORDERED: NALOXONE 0.4 MG/ML 1 ML VIAL IV PRN (22:11)
[2021-01-05] MEDS ORDERED: SODIUM CHLORIDE 0.9% 1,000 ML IV SCH (22:15)
--- NOTE | 2021-01-05 23:22 | US ---
EXAMINATION TYPE: US kidneys/renal and bladder DATE OF EXAM: 01/05/2021 COMPARISON: CT CLINICAL HISTORY: cystitis, per request by Dr. Tamayo. Cystitis per order. Patient feels bilateral fla nk pain x 1 week. EXAM MEASUREMENTS: Right Kidney: 10.8 x 5.9 x 4.4 cm Left Kidney: 11.0 x 5.6 x 4.9 cm Right Kidney: Slightly heterogeneous area of mixed echogenicity seen versus possible column of Aravind upper-mid right kidney measuring 2.6 x 2.5 x 2.5 cm. Left Kidney: No hydronephrosis or masses seen Bladder: Wall appears to measure 0.3 cm. Appears anechoic. Bilateral Jets seen: Yes IMPRESSION: No evidence of renal mass or obstruction. No bladder abnormality.
[2021-01-06] MEDS ORDERED: cloNIDine HCL 0.1 MG TAB PO PRN (00:18)
[2021-01-06] MEDS ORDERED: traZODone HCL 100 MG TAB PO SCH (00:30)
[2021-01-06] MEDS: clonazePAM 1 MG TAB PO SCH ×2 (00:39→08:17)
[2021-01-06] MEDS: GABAPENTIN 300 MG CAP PO SCH ×2 (00:39→08:17)
[2021-01-06] MEDS: IMIPRAMINE 25 MG TAB PO SCH ×2 (00:39→09:39)
[2021-01-06] MEDS ORDERED: LEVOTHYROXINE 125 MCG TAB PO SCH (06:30)
[2021-01-06 07:30] VITALS: RESP 16; TEMP 97.5
[2021-01-06] MEDS ORDERED: PANTOPRAZOLE 40 MG TABLET PO SCH (07:30)
[2021-01-06] MEDS ORDERED: MELOXICAM 7.5 MG TAB PO SCH (09:00)
[2021-01-06] MEDS ORDERED: TOPIRAMATE 100 MG TAB PO SCH (09:00)
[2021-01-06] MEDS ORDERED: LOSARTAN-HCTZ 50-12.5 MG 1 EACH TAB PO SCH (09:00)
[2021-01-06] MEDS ORDERED: CYCLOBENZAPRINE 5 MG TAB PO SCH (09:00)
[2021-01-06] MEDS ORDERED: DULoxetine HCL 60 MG CAPSULE.DR PO SCH (09:00)
[2021-01-06] MEDS ORDERED: valACYclovir 500 MG TAB PO SCH (09:00)
[2021-01-06] MEDS ORDERED: TRIAMTERENE-HCTZ 37.5-25MG 1 EACH CAP PO SCH (09:00)
[2021-01-06] MEDS ORDERED: HYDROcodone/APAP 5-325MG 1 EACH TAB PO SCH (09:00)
[2021-01-06] MEDS ORDERED: NON FORMULARY DRUG (Phentermine Hcl [Adipex-P] 37.5 MG Tablet) PO SCH (09:00)
--- NOTE | 2021-01-06 09:12 | P.HPIM ---
History of Present Illness H&P Date: 01/06/21 Chief Complaint: Abdominal pain HISTORY AND PHYSICAL AND DISCHARGE SUMMARY: HISTORY OF PRESENT ILLNESS This is a 40-year-old female patient of Dr. 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 Patient complains of left lower quadrant abdominal pain for 7 days. She has had some diarrhea. Positive nausea without vomiting. No fever or chills. Patient does have pain with sexual intercourse. No dysuria. Patient presented to [facility] emergency center. He was afebrile, heart rate 73, blood pressure 147/63, pulse ox 97% on room air. CBC is unremarkable. Electrolytes renal function and liver function tests all within normal limits. Blood sugar 109. Urinalysis nitrate positive, leukoesterase small, bacteria occasional. Judge virus PCR not detected. Renal ultrasound revealed no evidence of renal mass or obstruction. No bladder abnorm ality. CAT scan of the abdomen and pelvis revealed urinary bladder wall thickening correlate for possible cystitis versus decompressed state. Mild bibasilar atelectasis superimposed infiltrate is better excluded clinically. No acute abnormality. Patient received 1 L of IV fluids, morphine, several doses of Dilaudid and 1 dose of Rocephin, placed on the observation unit. Urine culture status received. The patient has some mild tenderness to the left lower quadrant. Past been no sign of urinary tract infection. We'll plan for her to start full liquid diet and plan for antibiotics the form of Levaquin and Flagyl. Patient is requesting to go home. We will plan for her to home on antibiotics with follow-up in the office in a week. REVIEW OF SYSTEMS Constitutional: No fever, no chills, no night sweats. No weight change. No weakness, fatigue or lethargy. No daytime sleepiness. EENT: No headache. No blurred vision or double vision, no loss of vision. No loss of Hearing, no ringing in the ears, no dizziness. No nasal drainage or congestion. No epistaxis. No sore throat. Lungs: No shortness of breath, cough, no sputum production. No wheezing. Cardiovascular: No chest pain, no lower extremity edema. No palpitations. No paroxysmal nocturnal dyspnea. No orthopnea. No lightheadedness or dizziness. No syncopal episodes. Abdominal: Reports abdominal pain. Reports abdominal bloating. Reports nausea, no vomiting. Reports intermittent diarrhea. Reports constipation. No bloody or tarry stools. No loss of appetite. Genitourinary: No dysuria, increased frequency, urgency. No urinary retention. Musculoskeletal: No myalgias. No muscle weakness, no gait dysfunction, no frequent falls. No back pain. No neck pain. Integumentary: No wounds, no lesions. No rash or pruritus. No unusual bruising. No change in hair or nails. Neurologic: No aphasia. No facial droop. No change in mentation. No head injury. No headache. No paralysis. No paresthesia. Psychiatric: No depression. No anxiety. No mood swings. Endocrine: No abnormal blood sugars. No weight change. SOCIAL HISTORY Patient is a smoker one quarter pack per day. She denies any alcohol use or illicit drug use. She lives alone. FAMILY HISTORY Mother is living with history of dementia, coronary artery disease, hypertension and COPD. Father is alive with history of COPD, hypertension, coronary artery disease. Patient has 2 brothers and one has history of testicular cancer. She does not have any sisters. Patient has 5 children with history of asthma. PHYSICAL EXAMINATION Gen: This is a 40-year-old female. Patient is resting bed and appears to be comfortable and in no acute distress. HEENT: Head is atraumatic, normocephalic. Pupils equal, round. Sclerae is anicteric. NECK: Supple. No JVD. No lymphadenopathy. No thyromegaly. LUNGS: Clear to auscultation. No wheezes or rhonchi. No intercostal retractions. HEART: Regular rate and rhythm. No murmur. ABDOMEN: Soft. Bowel sounds are present. No masses. Mild left lower quadrant tenderness. EXTREMITIES: No pedal edema. No calf tenderness. NEUROLOGICAL: Patient is awake, alert and oriented x3. Cranial nerves 2 through 12 are grossly intact. ASSESSMENT AND PLAN 1. Acute divertulitis. Patient will be continued on Flagyl and Levaquin. 2. Hypertension. Continue Catapres 0.1 mg at bedtime as needed, Dyazide 1 daily, Hyzaar 50/12.52 tablets daily. 3. History of rheumatoid arthritis. 4. History of migraine headaches. Patient is on Emgality once monthly, Topamax 100 mg twice daily. 5. Seizure disorder. 6. Hypothyroidism. Continue levothyroxine 125 g daily 7. Fibromyalgia. 8. History of brainstem tumor status post resection, stable. 9. Degenerative disc disease and chronic pain. Continue Flexeril 5 mg twice daily and 10 at bedtime as needed, Neurontin 600 mg 3 times daily. 10. Generalized anxiety disorder and recurrent depression. Continue clonazepam 1 mg 4 times daily, Cymbalta 120 mg daily, trazodone 200 mg at bedtime. 11. Obesity. Patient has been on Adipex. Patient placed as an observation status. DISCHARGE PLAN Home. Discharge Medication List Cyclobenzaprine [Flexeril] 5 mg PO BID 08/05/17 [History] Gabapentin [Neurontin] 600 mg PO TID 08/05/17 [History] Levothyroxine Sodium [Synthroid] 125 mcg PO DAILY 08/05/17 [History] Losartan/Hydrochlorothiazide [Losartan-Hctz 100-25 mg Tab] 1 tab PO DAILY 08/05/17 [History] Triamterene/Hydrochlorothiazid [Dyazide 37.5-25 Capsule] 1 cap PO DAILY 08/05/17 [History] traZODone HCL [Desyrel] 200 mg PO HS 05/22/19 [History] HYDROcodone/APAP 5-325MG [[place] 5-325] 1 tab PO BID 06/08/20 [History] clonazePAM [KlonoPIN] 1 mg PO QID 06/08/20 [History] Celecoxib [CeleBREX] 400 mg PO DAILY 07/25/20 [History] Omeprazole 20 mg PO DAILY 07/25/20 [History] Topiramate [Topamax] 100 mg PO BID 07/25/20 [History] valACYclovir [Valtrex] 500 mg PO DAILY 07/25/20 [History] Cyclobenzaprine [Flexeril] 10 mg PO HS PRN 01/05/21 [History] DULoxetine HCL [Cymbalta] 120 mg PO DAILY 01/05/21 [History] Galcanezumab-Gnlm [Emgality Pen] 120 mg SQ Q30D 01/05/21 [History] Imipramine [Tofranil] 25 mg PO QID 01/05/21 [History] Phentermine HCl [Adipex-P] 37.5 mg PO DAILY 01/05/21 [History] cloNIDine HCL [Catapres] 0.1 mg PO HS PRN 01/05/21 [History] Levofloxacin [Levaquin] 500 mg PO DAILY 10 Days #10 tab 01/06/21 [Rx] metroNIDAZOLE [Flagyl] 500 mg PO TID #30 tab 01/06/21 [Rx] Impression and plan of care have been directed as dictated by the signing physician. Aracely Ramos nurse practitioner acting as scribe for signing physician. Past Medical History Past Medical History: Fibromyalgia, Hypertension, Memory Impairment, Rheumatoid Arthritis (RA), Seizure Disorder, Thyroid Disorder Additional Past Medical History / Comment(s): brain stem tumor, surgan syndrome, DDD, sleep disorder, degenerative joint History of Any Multi-Drug Resistant Organisms: None Reported Past Surgical History: Section, Cholecystectomy, Uterine Ablation Additional Past Surgical History / Comment(s): brain tumor removed 2014, jennifer carlisle , C section X-5 Past Anesthesia/Blood Transfusion Reactions: No Reported Reaction Past Psychological History: Anxiety, Depression Smoking Status: Current some day smoker Past Alcohol Use History: Occasional Past Drug Use History: None Reported Medications and Allergies Home Medications Medication Instructions Recorded Confirmed Type Cyclobenzaprine [Flexeril] 5 mg PO BID 08/05/17 01/05/21 History Gabapentin [Neurontin] 600 mg PO TID 08/05/17 01/05/21 History Levothyroxine Sodium [Synthroid] 125 mcg PO DAILY 08/05/17 01/05/21 History Losartan/Hydrochlorothiazide 1 tab PO DAILY 08/05/17 01/05/21 History [Losartan-Hctz 100-25 mg Tab] Triamterene/Hydrochlorothiazid 1 cap PO DAILY 08/05/17 01/05/21 History [Dyazide 37.5-25 Capsule] traZODone HCL [Desyrel] 200 mg PO HS 05/22/19 01/05/21 History HYDROcodone/APAP 5-325MG [[place] 1 tab PO BID 06/08/20 01/05/21 History 5-325] clonazePAM [KlonoPIN] 1 mg PO QID 06/08/20 01/05/21 History Celecoxib [CeleBREX] 400 mg PO DAILY 07/25/20 01/05/21 History Omeprazole 20 mg PO DAILY 07/25/20 01/05/21 History Topiramate [Topamax] 100 mg PO BID 07/25/20 01/05/21 History valACYclovir [Valtrex] 500 mg PO DAILY 07/25/20 01/05/21 History Cyclobenzaprine [Flexeril] 10 mg PO HS PRN 01/05/21 01/05/21 History DULoxetine HCL [Cymbalta] 120 mg PO DAILY 01/05/21 01/05/21 History Galcanezumab-Gnlm [Emgality Pen] 120 mg SQ Q30D 01/05/21 01/05/21 History Imipramine [Tofranil] 25 mg PO QID 01/05/21 01/05/21 History Phentermine HCl [Adipex-P] 37.5 mg PO DAILY 01/05/21 01/05/21 History cloNIDine HCL [Catapres] 0.1 mg PO HS PRN 01/05/21 01/05/21 History Levofloxacin [Levaquin] 500 mg PO DAILY 10 Days #10 tab 01/06/21 Rx metroNIDAZOLE [Flagyl] 500 mg PO TID #30 tab 01/06/21 Rx Allergies Allergy/AdvReac Type Severity Reaction Status Date / Time No Known Allergies Allergy Verified 01/05/21 21:30 Physical Exam Vitals: Vital Signs Temp Pulse Pulse Resp BP BP BP 01/06/21 07:00 97.5 F L 82 16 117/71 01/06/21 02:00 97.6 F 83 18 105/72 01/05/21 22:57 97.7 F 71 18 96/64 01/05/21 22:11 97.7 F 63 16 107/77 01/05/21 19:51 98.3 F 73 18 147/63 Pulse Ox 01/06/21 07:00 96 01/06/21 02:00 94 L 01/05/21 22:57 95 01/05/21 22:11 97 01/05/21 19:51 97 Intake and Output 01/05/21 01/06/21 01/06/21 22:59 06:59 14:59 Intake Total 160 Balance 160 Intake: Intake, IV Titration 160 Amount Sodium Chloride 0.9% 1, 160 000 ml @ 20 mls/hr IV . Q24H [facility] Rx#:[id number] Other: Voiding Method Toilet Toilet # Voids 2 Weight 88.451 kg Results CBC & Chem 7: 01/05/21 20:10 01/05/21 20:10 Labs: Abnormal Lab Results - Last 24 Hours (Table) 01/05/21 01/05/21 Range/Units 20:10 20:10 Glucose 109 H (74-99) mg/dL Urine Appearance Cloudy H (Clear) Urine Nitrite Positive H (Negative) Ur Leukocyte Esterase Small H (Negative) Urine WBC 9 H (0-5) /hpf Urine Bacteria Occasional H (None) /hpf Urine Mucus Rare H (None) /hpf Urine Yeast (Budding) Occasional H (None) /hpf Thrombosis Risk Factor Assmnt - Choose All That Apply Any of the Below Risk Factors Present?: Yes Each Factor Represents 1 point: Obesity (BMI >25) Other Risk Factors: No Other congenital or acquired thrombophilia - If yes, enter type in comment: No Thrombosis Risk Factor Assessment Total Risk Factor Score: 1 Thrombosis Risk Factor Assessment Level: Low Risk
[2021-01-06] MEDS ORDERED: LEVOFLOXACIN 500MG-D5W PMX 500 MG in DEXTROSE/WATER 1 100ML.BAG IVPB SCH (09:15)
[2021-01-06] MEDS ORDERED: metroNIDAZOLE-NS PMX 500 MG in SALINE 1 100ML.BAG IVPB SCH (09:15)
[2021-01-06 09:21] VITALS: BP 112/83; PULSE 80
== END 2021-01-06 10:05 | disposition home or self-care (01) ==
LOC: EC 19:45 → 6NMEDSUR 22:11
PROVIDERS: ADMIT Family Medicine; ATTEND Family Medicine
DX: K57.92 Diverticulitis of intestine, part unspecified, without perforation or abscess without bleeding (principal); G40.909 Epilepsy, unspecified, not intractable, without status epilepticus; I10 Essential (primary) hypertension; M06.9 Rheumatoid arthritis, unspecified; M79.7 Fibromyalgia; E03.9 Hypothyroidism, unspecified; M35.00 Sjogren syndrome, unspecified; J98.11 Atelectasis; G43.909 Migraine, unspecified, not intractable, without status migrainosus; G47.9 Sleep disorder, unspecified; F41.1 Generalized anxiety disorder; F33.9 Major depressive disorder, recurrent, unspecified; E66.9 Obesity, unspecified; Z68.33 Body mass index [BMI] 33.0-33.9, adult; N94.10 Unspecified dyspareunia; G89.29 Other chronic pain; Z20.828 Contact with and (suspected) exposure to other viral communicable diseases; F17.210 Nicotine dependence, cigarettes, uncomplicated; Z79.890 Hormone replacement therapy; Z79.1 Long term (current) use of non-steroidal anti-inflammatories (NSAID); Z79.899 Other long term (current) drug therapy; Z98.891 History of uterine scar from previous surgery; Z90.49 Acquired absence of other specified parts of digestive tract; Z86.011 Personal history of benign neoplasm of the brain; Z82.49 Family history of ischemic heart disease and other diseases of the circulatory system; Z82.5 Family history of asthma and other chronic lower respiratory diseases; Z81.8 Family history of other mental and behavioral disorders; Z80.43 Family history of malignant neoplasm of testis
CPT/HCPCS: 96376; 96361; 96374; 96375; 99285; 36415; 80053; 83690; 85025; 81001; 81025; 87086; 87077; 87186; 87635; 76770; 74177; G0378 ×2; J2270; J0696; J1170 ×2; Q9967

== ENCOUNTER → 2021-01-27 | Outpatient (CLI) | payer OTHER ==
--- NOTE | 2021-01-27 16:49 | US ---
EXAMINATION TYPE: US bladder DATE OF EXAM: 01/27/2021 COMPARISON: NONE CLINICAL HISTORY: N30.91 Cystitis, unspecified with hematuria. urinary frequency EXAM MEASUREMENTS: Post Void Residual Volume: 66 mL Color Doppler performed to assess ureteral jets. Bilateral Jets seen: Normal Post Void Residual (less than 50ml): Urinary retention, postvoid residual of 66 mL. IMPRESSION: 1. Urinary retention.
== END ==
LOC: RADUSWWP 13:03
PROVIDERS: ATTEND Family Medicine
DX: R33.9 Retention of urine, unspecified (principal)
CPT/HCPCS: 76857

== ENCOUNTER 2021-03-15 23:23 | Emergency (ER) | payer OTHER ==
[2021-03-15 23:31] VITALS: RESP 18; TEMP 97.8
[2021-03-16] MEDS ORDERED: HYDROcodone/APAP 5-325MG 1 EACH TAB PO STA (00:05)
--- NOTE | 2021-03-16 00:16 | ED ---
Fall HPI - General Chief Complaint: Fall Stated Complaint: Fell-left knee and left arm injury Time Seen by Provider: 03/15/21 23:46 Source: patient Mode of arrival: ambulatory - History of Present Illness Initial Comments: This patient is a 41-year-old woman who presents to be evaluated for fall injury. She states in the afternoon she was walking and encountered uneven pavement. She states she fell forward catching herself with both arms. She landed striking her right forearm and right knee/foot. Patient denies head or neck, chest, abdomen or back pain or injury. No loss of consciousness. No neurologic symptoms. MD Complaint: fall -: hour(s) Fall From: standing When Fall Occurred: 4-[address] Fall Occurred: street Loss of Consciousness: none Prolonged Down Time?: no Symptoms Prior to Fall: none Location - Extremities: Right: Forearm, Knee, Foot Severity: severe Quality: aching Context: tripped/slipped - Related Data Home Medications Medication Instructions Recorded Confirmed Cyclobenzaprine [Flexeril] 5 mg PO BID 08/05/17 01/05/21 Gabapentin [Neurontin] 600 mg PO TID 08/05/17 01/05/21 Levothyroxine Sodium [Synthroid] 125 mcg PO DAILY 08/05/17 01/05/21 Losartan/Hydrochlorothiazide 1 tab PO DAILY 08/05/17 01/05/21 [Losartan-Hctz 100-25 mg Tab] Triamterene/Hydrochlorothiazid 1 cap PO DAILY 08/05/17 01/05/21 [Dyazide 37.5-25 Capsule] traZODone HCL [Desyrel] 200 mg PO HS 05/22/19 01/05/21 HYDROcodone/APAP 5-325MG [[place] 1 tab PO BID 06/08/20 01/05/21 5-325] clonazePAM [KlonoPIN] 1 mg PO QID 06/08/20 01/05/21 Celecoxib [CeleBREX] 400 mg PO DAILY 07/25/20 01/05/21 Omeprazole 20 mg PO DAILY 07/25/20 01/05/21 Topiramate [Topamax] 100 mg PO BID 07/25/20 01/05/21 valACYclovir [Valtrex] 500 mg PO DAILY 07/25/20 01/05/21 Cyclobenzaprine [Flexeril] 10 mg PO HS PRN 01/05/21 01/05/21 DULoxetine HCL [Cymbalta] 120 mg PO DAILY 01/05/21 01/05/21 Galcanezumab-Gnlm [Emgality Pen] 120 mg SQ Q30D 01/05/21 01/05/21 Imipramine [Tofranil] 25 mg PO QID 01/05/21 01/05/21 Phentermine HCl [Adipex-P] 37.5 mg PO DAILY 01/05/21 01/05/21 cloNIDine HCL [Catapres] 0.1 mg PO HS PRN 01/05/21 01/05/21 Previous Rx's Medication Instructions Recorded Levofloxacin [Levaquin] 500 mg PO DAILY 10 Days #10 tab 01/06/21 metroNIDAZOLE [Flagyl] 500 mg PO TID #30 tab 01/06/21 Allergies Allergy/AdvReac Type Severity Reaction Status Date / Time No Known Allergies Allergy Verified 03/15/21 23:30 Review of Systems ROS Statement: Those systems with pertinent positive or pertinent negative responses have been documented in the HPI. ROS Other: All systems not noted in ROS Statement are negative. Constitutional: Denies: fever, chills, weakness Eyes: Denies: vision change Respiratory: Denies: cough, dyspnea Cardiovascular: Denies: chest pain, palpitations, syncope Gastrointestinal: Denies: abdominal pain, vomiting Musculoskeletal: Reports: as per HPI, joint swelling, arthralgia Skin: Reports: other (Abrasion, bilateral palms and also right knee.). Denies: rash Neurological: Denies: headache, weakness, numbness, paresthesias Past Medical History Past Medical History: Fibromyalgia, Hypertension, Memory Impairment, Rheumatoid Arthritis (RA), Seizure Disorder, Thyroid Disorder Additional Past Medical History / Comment(s): brain stem tumor, surgan syndrome, DDD, sleep disorder, degenerative joint, diverticulitis History of Any Multi-Drug Resistant Organisms: None Reported Past Surgical History: Section, Cholecystectomy, Uterine Ablation Additional Past Surgical History / Comment(s): brain tumor removed 2014, [facility] , C section X-5 Past Anesthesia/Blood Transfusion Reactions: No Reported Reaction Past Psychological History: Anxiety, Depression Smoking Status: Current some day smoker Past Alcohol Use History: Occasional Past Drug Use History: None Reported General Exam Limitations: no limitations General appearance: alert, in no apparent distress Head exam: Present: atraumatic, normocephalic Eye exam: Present: normal appearance. Absent: scleral icterus, conjunctival injection Neck exam: Present: normal inspection, full ROM. Absent: tenderness Respiratory exam: Present: normal lung sounds bilaterally. Absent: respiratory distress, wheezes, rales, rhonchi, stridor, chest wall tenderness Cardiovascular Exam: Present: regular rate, normal rhythm, normal heart sounds GI/Abdominal exam: Present: soft. Absent: distended, tenderness, guarding, rebound, rigid, mass Right Shoulder Exam: Present: normal inspection, full ROM. Absent: tenderness, swelling Upper Arm exam: Present: normal inspection, full ROM. Absent: tenderness, swelling Elbow exam: Present: normal inspection, tenderness. Absent: full ROM, swelling, abrasion, laceration, ecchymosis, deformity, crepitus, dislocation, erythema, effusion, pain w/ pronation/supination, tenderness over radial head Forearm Wrist exam: Present: normal inspection, tenderness. Absent: full ROM, swelling, abrasion, laceration, ecchymosis, deformity, crepitus, dislocation, erythema, tenderness over anatomical snuff box, pain with axial thumb loading Hand Wrist exam: Present: tenderness, abrasion. Absent: full ROM, swelling, laceration, ecchymosis, deformity, crepitus, dislocation, erythema, amputation, nail avulsion, subungual hematoma Neuro motor exam: Present: wrist extension intact, thumb opposition intact, thumb IP flexion intact, thumb adduction intact, fingers 2-5 abduction intact Neurosensory exam: Present: 2-point discrimination, radial nerve intact, ulnar nerve intact, median nerve intact Vascular: Present: normal capillary refill. Absent: vascular compromise, Pallo, pulse deficit radial art, pulse deficit ulnar art, pulse deficit brachial art Right Hip exam: Present: normal inspection, full ROM. Absent: tenderness Upper Leg exam: Present: normal inspection, full ROM. Absent: tenderness Knee exam: Present: full ROM, tenderness, swelling, abrasion, ecchymosis, full knee extension. Absent: laceration, deformity, crepitus, dislocation, erythema, effusion, pain w/ pronation/supination, posterior draw sign, pain/laxity with valgus, pain/laxity with varus Lower Leg exam: Present: normal inspection, full ROM. Absent: tenderness, swelling Ankle exam: Present: normal inspection, full ROM. Absent: tenderness, swelling Foot/Toe exam: Present: normal inspection, tenderness (Dorsum right foot). Absent: swelling, abrasion, laceration, ecchymosis, deformity, crepitus, dislocation, erythema, amputation, puncture wound, foreign body, calcaneal tenderness, tenderness at base of 5th metatarsal, nail avulsion, subungual hematoma Neurovascular tendon exam: Present: no vascular compromise. Absent: pulse deficit, abnormal cap refill, motor deficit, sensory deficit, tendon deficit, extremity cold to touch, pallor, abnormal 2-point discrimination, decreased fine/light touch, foot drop, peroneal nerve deficit, significant pain with passive ROM of distal joint Back exam: Present: normal inspection. Absent: paraspinal tenderness, vertebral tenderness Neurological exam: Present: alert. Absent: motor sensory deficit Skin exam: Present: warm, dry, normal color, abrasion (To bilateral palms and r ight knee anterior aspect) Course Vital Signs 03/15/21 03/16/21 23:26 01:35 Temperature 97.8 F 97.8 F Pulse Rate 91 89 Respiratory 18 18 Rate Blood Pressure 125/86 124/86 O2 Sat by Pulse 99 99 Oximetry Procedures - Orthopedic Splinting/Casting Injury #1 Side: right Upper Extremity Injury Location: elbow Upper Extremity Immobilizer: posterior splint, synthetic pre-padded splint Disposition Clinical Impression: Fall, Knee contusion, Fracture of radial head, right, closed, Abrasion hand Disposition: HOME SELF-CARE Condition: Good Instructions (If sedation given, give patient instructions): Elbow Fracture (ED), Abrasion (ED), Fall Prevention (ED) Is patient prescribed a controlled substance at d/c from ED?: No Referrals: Mahsa Tamayo MD [Primary Care Provider] - 1-2 days Binu Ray MD [STAFF PHYSICIAN] - 1-2 days
--- NOTE | 2021-03-16 00:35 | XR ---
EXAM: XR Right Knee, 3 Views CLINICAL HISTORY: History of fall. Right knee injury. Right knee pain. TECHNIQUE: Three views of the right knee. COMPARISON: No previous study. FINDINGS: Bones/joints: Mild osteoarthritic changes about the right knee joint are noted, most notably at the patellofemoral joint. Very small right knee joint effusion. No acute fracture or dislocation. Soft tissues: Soft tissues are unremarkable. IMPRESSION: 1. Mild osteoarthritic changes of very small right knee joint effusion appeared 2. No acute fracture or dislocation. 3. If there is continued concern, magnetic resonance imaging of the right knee joint will provide additional information.
--- NOTE | 2021-03-16 00:35 | XR ---
EXAM: XR Right Foot Complete, 3 or More Views CLINICAL HISTORY: ITS.REASON XR Reason: fall injury TECHNIQUE: Frontal, lateral and oblique views of the right foot. COMPARISON: No previous study. FINDINGS: Bones/joints: Mild hallux valgus deformity. Mild to moderate osteoarthritic changes. Subchondral cyst formation head of the right first metatarsal. No acute fracture or dislocation. 0.5 cm anterior heel spur. Soft tissues: Soft tissues are unremarkable. No radiopaque foreign body. IMPRESSION: 1. No acute fracture or dislocation. 2. Hallux valgus deformity. 3. Osteoarthritic changes.
--- NOTE | 2021-03-16 00:36 | XR ---
EXAM: XR Right Forearm, 2 Views CLINICAL HISTORY: ITS.REASON XR Reason: fall injury TECHNIQUE: Frontal and lateral views of the right forearm. COMPARISON: No previous study. FINDINGS: Bones/joints: Acute nondisplaced fracture of the radial head is noted. The right elbow joint appears intact. Small to moderate right elbow joint effusion. The right radius and ulna are otherwise unremarkable including about the right wrist joint. No dislocation. Soft tissues: Unremarkable. IMPRESSION: Acute nondisplaced fracture of the radial head.
[2021-03-16 02:09] VITALS: BP 124/86; PULSE 89
== END 2021-03-16 01:35 | disposition home or self-care (01) ==
LOC: EC 23:23
DX: S52.124A Nondisplaced fracture of head of right radius, initial encounter for closed fracture (principal); S80.01XA Contusion of right knee, initial encounter; S60.512A Abrasion of left hand, initial encounter; S60.511A Abrasion of right hand, initial encounter; S49.92XA Unspecified injury of left shoulder and upper arm, initial encounter; M06.9 Rheumatoid arthritis, unspecified; G40.909 Epilepsy, unspecified, not intractable, without status epilepticus; M79.7 Fibromyalgia; I10 Essential (primary) hypertension; F41.9 Anxiety disorder, unspecified; F32.9 Major depressive disorder, single episode, unspecified; F17.200 Nicotine dependence, unspecified, uncomplicated; Z79.1 Long term (current) use of non-steroidal anti-inflammatories (NSAID); Z79.899 Other long term (current) drug therapy; W01.10XA Fall on same level from slipping, tripping and stumbling with subsequent striking against unspecified object, initial encounter; Y93.01 Activity, walking, marching and hiking
CPT/HCPCS: 99284

== ENCOUNTER → 2021-11-30 | Outpatient (CLI) | payer MEDICARE, OTHER ==
--- NOTE | 2021-12-01 11:38 | MR ---
EXAMINATION TYPE: MR brain wo/w con DATE OF EXAM: 11/30/2021 COMPARISON: MRI 12/19/2020, MR brain 11/17/2019, MR brain 03/23/2016 HISTORY: Follow up evaluation for arachnoid cyst. TECHNIQUE: Multiplanar, multisequence images of the brain and brainstem is performed without and with IV contras t, utilizing 7 mL intravenous Gadavist . FINDINGS: Diffusion weighted images demonstrate no evidence of a recent infarct or other diffusion ab normality. There is no extra-axial fluid collection or significant white matter signal abnormality. The ventricular system and cisternal spaces are normal in size and appearance. The brain volume is age appropriate. Midline structures demonstrate stable morphology, there is a partially empty sella. Cystic focus ant erior to the medulla shows a stable appearance. The craniocervical junction appears within normal ibrahim its. Post contrast images demonstrate no abnormal enhancement. The dural venous sinuses appear paten t. The visualized sinuses are remarkable for mild inflammatory change in ethmoid air cells and the gl obes are intact. IMPRESSION: Stable brain MRI, mild sinus disease
== END | disposition home or self-care (01) ==
LOC: RADMRIMAIN 17:26
PROVIDERS: ATTEND Family Medicine
DX: G93.0 Cerebral cysts (principal)
CPT/HCPCS: 70553; A9585

== ENCOUNTER 2022-01-05 08:19 | Emergency (ER) | payer MEDICARE, OTHER ==
[2022-01-05 08:24] VITALS: RESP 18; TEMP 98.2
[2022-01-05] MEDS ORDERED: IBUPROFEN 600 MG TAB PO STA (09:03)
--- NOTE | 2022-01-05 09:05 | ED ---
General Adult HPI - General Chief complaint: Extremity Injury, Upper Stated complaint: hand injury Time Seen by Provider: 01/05/22 08:38 Source: patient Mode of arrival: ambulatory Limitations: no limitations - History of Present Illness Initial comments: 41-year-old female presents to the emergency room for right hand pain. Patient states she was wrestling with her sons last night when she started to have right hand pain. States it hurts to move the MCP joint of the right thumb. She denies any fevers or chills. She states is a little bit swollen.Patient has no other complaints at this time including shortness of breath, chest pain, abdominal pain, nausea or vomiting, headache, or visual changes. - Related Data Home Medications Medication Instructions Recorded Confirmed Cyclobenzaprine [Flexeril] 5 mg PO BID PRN 08/05/17 01/05/22 Levothyroxine Sodium [Synthroid] 125 mcg PO DAILY 08/05/17 01/05/22 Losartan/Hydrochlorothiazide 1 tab PO DAILY 08/05/17 01/05/22 [Losartan-Hctz 100-25 mg Tab] Triamterene/Hydrochlorothiazid 1 cap PO DAILY PRN 08/05/17 01/05/22 [Dyazide 37.5-25 Capsule] HYDROcodone/APAP 5-325MG [[place] 1 tab PO BID PRN 06/08/20 01/05/22 5-325] clonazePAM [KlonoPIN] 1 mg PO QID 06/08/20 01/05/22 Celecoxib [CeleBREX] 400 mg PO DAILY PRN 07/25/20 01/05/22 Omeprazole 20 mg PO DAILY 07/25/20 01/05/22 Topiramate [Topamax] 100 mg PO BID 07/25/20 01/05/22 Galcanezumab-Gnlm [Emgality Pen] 120 mg SQ Q30D 01/05/21 01/05/22 Phentermine HCl [Adipex-P] 37.5 mg PO DAILY 01/05/21 01/05/22 Ergocalciferol [Vitamin D2 (1250 1,250 mcg PO ESQUIVEL 01/05/22 01/05/22 Mcg = 54439 Iu)] Gabapentin [Neurontin] 400 mg PO TID 01/05/22 01/05/22 Imipramine HCl [Tofranil] 50 mg PO BID 01/05/22 01/05/22 Rizatriptan Benzoate [Rizatriptan] 10 mg PO DAILY PRN 01/05/22 01/05/22 lamoTRIgine [LaMICtal] 100 mg PO DAILY 01/05/22 01/05/22 levETIRAcetam [Keppra] 750 mg PO Q12HR 01/05/22 01/05/22 traZODone HCL 300 mg PO HS 01/05/22 01/05/22 Allergies Allergy/AdvReac Type Severity Reaction Status Date / Time No Known Allergies Allergy Verified 01/05/22 09:24 Review of Systems ROS Statement: Those systems with pertinent positive or pertinent negative responses have been documented in the HPI. ROS Other: All systems not noted in ROS Statement are negative. Past Medical History Past Medical History: Fibromyalgia, Hypertension, Memory Impairment, Rheumatoid Arthritis (RA), Seizure Disorder, Thyroid Disorder Additional Past Medical History / Comment(s): brain stem tumor, surgan syndrome, DDD, sleep disorder, degenerative joint, diverticulitis History of Any Multi-Drug Resistant Organisms: None Reported Past Surgical History: Section, Cholecystectomy, Uterine Ablation Additional Past Surgical History / Comment(s): brain tumor removed 2014, tummy maylin , C section X-5 Past Anesthesia/Blood Transfusion Reactions: No Reported Reaction Past Psychological History: Anxiety, Depression Smoking Status: Current some day smoker Past Alcohol Use History: Occasional Past Drug Use History: None Reported General Exam Limitations: no limitations General appearance: alert, in no apparent distress Head exam: Present: atraumatic Eye exam: Present: normal appearance, PERRL, EOMI. Absent: scleral icterus, conjunctival injection ENT exam: Present: normal exam, mucous membranes moist Neck exam: Present: normal inspection, full ROM. Absent: tenderness Respiratory exam: Present: normal lung sounds bilaterally. Absent: respiratory distress, wheezes Cardiovascular Exam: Present: regular rate, normal rhythm, normal heart sounds Extremities exam: Present: tenderness (Tenderness to the right MCP joint and proximal phalanx of the right thumb.), normal capillary refill (Capillary refill less than 2 seconds. Radial pulse 2+.), other (ml). Absent: full ROM (She has about 15 range of motion of the right MCP joint) Course Vital Signs 01/05/22 08:22 Temperature 98.2 F Pulse Rate 101 H Respiratory 18 Rate Blood Pressure 132/91 O2 Sat by Pulse 98 Oximetry Procedures - Orthopedic Splinting/Casting Injury #1 Side: right Upper Extremity Injury Location: short arm Upper Extremity Immobilizer: thumb spica Additional Comments: NV intact after splint applied. Medical Decision Making - Medical Decision Making Vitals are stable. HPI and physical exam as documented. Patient unable to flex or extend the MCP joint of the right thumb. She is able to flex and extend the IP joint. She has tenderness to the MCP joint. Minimal edema. No streaking redness. Radial pulse 2+. Capillary refill less than 2 seconds. X-ray shows no acute fracture. They could not exclude a slight subluxation of the proximal phalanx relative to the first metacarpal. I did recommend to try to reduce the thumb as this could be the cause of her pain. However patient states in the past she has had x-ray missed a fracture and she does not want to attempt to reduce it. She would rather follow up with orthopedics. Therefore it was splinted in a thumb spica. Patient was given return parameters. She was given follow-up information. Prefers [facility] with [facility] so that was given as well. Disposition Clinical Impression: Thumb injury Narrative: possible subluxation Disposition: HOME SELF-CARE Condition: Good Instructions (If sedation given, give patient instructions): Finger Sprain (ED) Additional Instructions: Please take Motrin and Tylenol for pain. Keep splint dry. Follow-up with orthopedics. Return to the emergency room for any worsening symptoms. Is patient prescribed a controlled substance at d/c from ED?: No Referrals: Mahsa Tamayo MD [Primary Care Provider] - 1-2 days Roly Talbot DO [Doctor of Osteopathic Medicine] - 1-2 days Elieser Quezada DO [Doctor of Osteopathic Medicine] - 1-2 days Time of Disposition: 10:42
--- NOTE | 2022-01-05 09:06 | XR ---
EXAMINATION TYPE: XR hand complete RT DATE OF EXAM: 01/05/2022 COMPARISON: NONE HISTORY: Pain TECHNIQUE: Three views are submitted. FINDINGS: The osseous structures are intact. The joint spaces are preserved and there is no acute fracture. Th ere may be slight subluxation of the MCP joint correlate clinically IMPRESSION: 1. No acute fracture. Could not exclude slight subluxation of the proximal phalanx of the first digit relative to the first metacarpal. Correlate clinically confirmation. If concern for ligamentous or t endinous injury correlation with MRI could be obtained.
[2022-01-05 10:58] VITALS: BP 142/79; PULSE 84
== END 2022-01-05 10:58 | disposition home or self-care (01) ==
LOC: EC 08:19
DX: S60.931A Unspecified superficial injury of right thumb, initial encounter (principal); I10 Essential (primary) hypertension; M06.9 Rheumatoid arthritis, unspecified; G40.909 Epilepsy, unspecified, not intractable, without status epilepticus; F41.9 Anxiety disorder, unspecified; F32.A Depression, unspecified; F17.200 Nicotine dependence, unspecified, uncomplicated
CPT/HCPCS: 29125; 99283

== ENCOUNTER → 2022-01-18 | Outpatient (CLI) | payer MEDICARE, OTHER ==
[2022-01-18 18:19] LABS: HCT 40.6 % (37.2-46.3); RBC 4.09 X 10*6/uL (4.10-5.20); WBC 8.39 X 10*3/uL (4.50-10.00)
[2022-01-18 18:20] LABS: Basophils # (A) 0.03 X 10*3/uL (0.00-0.10); Basophils % (A) 0.4 %; Eosinophils # (A) 0.09 X 10*3/uL (0.04-0.35); Eosinophils % (A) 1.1 %; Immature Grans, Automated 0.2 %; Lymphocytes % (A) 16.7 %; MCH 31.8 pg (27.0-32.0); MCV 99.3 fL (80.0-97.0); Mean Platelet Volume 9.4 fL (9.5-12.2); Monocytes # (A) 0.37 X 10*3/uL (0.20-1.00); Monocytes % (A) 4.4 %; NRBC Per 100 WBC 0 /100 WBCS (0.0-0.0); Neutrophils # (A) 6.48 X 10*3/uL (1.80-7.70); Neutrophils % (A) 77.2 %; Platelet Count 249 X 10*3/uL (140-440); RDW 12.9 % (11.5-14.5)
[2022-01-18 18:23] LABS: BUN/Creat Ratio 8.5 Ratio (12.00-20.00); Blood Urea Nitrogen 6.8 mg/dL (9.0-27.0); Potassium 4.2 mmol/L (3.5-5.5)
[2022-01-18 18:24] LABS: African American GFR (CKD) 106.1 (60.0-200.0); Calcium 8.5 mg/dL (8.7-10.3); Non-African American GFR(CKD) 91.6 (60.0-200.0)
== END | disposition home or self-care (01) ==
LOC: LABPAT 14:17
PROVIDERS: ATTEND Orthopaedic Surgery Hand Surgery
DX: Z01.818 Encounter for other preprocedural examination (principal); S63.641A Sprain of metacarpophalangeal joint of right thumb, initial encounter; X58.XXXA Exposure to other specified factors, initial encounter
CPT/HCPCS: 80048; 85025; 93005

== ENCOUNTER 2022-01-20 12:03 | Day surgery (SDC) | payer MEDICARE, OTHER ==
[2022-01-18 11:55] VITALS: BMI 28.3
--- NOTE | 2022-01-19 13:34 | P.HPOR ---
History of Present Illness H&P Date: 01/19/22 Chief Complaint: Right thumb RCL ligament tear, acute. Subjective: This is a 41 year old female that presents today for initial evaluation regarding a right thumb injury that occurred on 01/05/22. She was playing with her son and fell onto the thumb. She has had pain, swelling and instability since the injury and has been wearing a brace since her injury. She denies any paresthesias. Physical Examination: RUE: AIN/PIN/Radial/Ulnar/Median motor intact. Radial/Ulnar/Median SILT. 2+/4 Radial/Ulnar pulses palpated. 5/5 APB, 5/5 FDI. Negative Finkelsteins, negative CMC grind, negative Durkan's compression. TTP over thumb RCL with 30 degrees of laxity with ulnar deviation at thumb MP joint with pain and no firm endpoint. Overall ulnar deviation of thumb MP joint present upon visualization Imaging: X-Rays of the right hand demonstrate no acute fracture/dislocation. Thumb MP joint held in ulnar deviation. Impression: 1.) Right thumb radial collateral ligament tear, acute. Plan: Diagnosis and treatment options were discussed with the patient. She has significant laxity with pain, swelling and instability at the thumb MP joint on exam today. I recommend surgical intervention with RCL repair with internal brace. Risks and benefit of surgery including bleeding, infection, damage to surrounding tissue, need for further surgery,numbness were discussed and the patient wished to go forward with surgery. Pre op labs and ekg will be obtained and she will be scheduled for surgery in the near future. -Roly Talbot DO Orthopedic Hand/Upper Extremity Surgeon Past Medical History Past Medical History: Fibromyalgia, Hypertension, Memory Impairment, Osteoarthritis (OA), Rheumatoid Arthritis (RA), Seizure Disorder, Thyroid Disorder Additional Past Medical History / Comment(s): brain stem tumor, sjogren's syndrome, DDD, insomnia, degenerative joint, diverticulitis, migraines, last seizure 1 yr ago, History of Any Multi-Drug Resistant Organisms: None Reported Past Surgical History: Breast Surgery, Section, Cholecystectomy, Uterine Ablation Additional Past Surgical History / Comment(s): brain tumor removed 2014, tummy tuck 2011 , C section X-5, rt breast lumptectomy Past Anesthesia/Blood Transfusion Reactions: Motion Sickness, Postoperative Nausea & Vomiting (PONV) Smoking Status: Current some day smoker - Past Family History Mother Family Medical History: No Reported History Medications and Allergies Home Medications Medication Instructions Recorded Confirmed Type Cyclobenzaprine [Flexeril] 5 mg PO BID PRN 08/05/17 01/18/22 History Levothyroxine Sodium [Synthroid] 125 mcg PO DAILY 08/05/17 01/18/22 History Losartan/Hydrochlorothiazide 1 tab PO DAILY 08/05/17 01/18/22 History [Losartan-Hctz 100-25 mg Tab] Triamterene/Hydrochlorothiazid 1 cap PO DAILY PRN 08/05/17 01/18/22 History [Dyazide 37.5-25 Capsule] HYDROcodone/APAP 5-325MG [[place] 1 tab PO BID PRN 06/08/20 01/18/22 History 5-325] clonazePAM [KlonoPIN] 1 mg PO QID 06/08/20 01/18/22 History Celecoxib [CeleBREX] 400 mg PO DAILY PRN 07/25/20 01/18/22 History Omeprazole 20 mg PO DAILY 07/25/20 01/18/22 History Topiramate [Topamax] 100 mg PO BID 07/25/20 01/18/22 History Galcanezumab-Gnlm [Emgality Pen] 120 mg SQ Q30D 01/05/21 01/18/22 History Ergocalciferol [Vitamin D2 (1250 1,250 mcg PO ESQUIVEL 01/05/22 01/18/22 History Mcg = 57079 Iu)] Gabapentin [Neurontin] 400 mg PO TID 01/05/22 01/18/22 History Imipramine HCl [Tofranil] 50 mg PO BID 01/05/22 01/18/22 History Rizatriptan Benzoate [Rizatriptan] 10 mg PO DAILY PRN 01/05/22 01/18/22 History lamoTRIgine [LaMICtal] 100 mg PO DAILY 01/05/22 01/18/22 History levETIRAcetam [Keppra] 750 mg PO Q12HR 01/05/22 01/18/22 History traZODone HCL 300 mg PO HS 01/05/22 01/18/22 History Allergies Allergy/AdvReac Type Severity Reaction Status Date / Time No Known Allergies Allergy Verified 01/18/22 11:42 Physical Examination Osteopathic Statement: *. No significant issues noted on an osteopathic structural exam other than those noted in the History and Physical/Consult.
[2022-01-20] MEDS ORDERED: DEXAMETHASONE SOD PHOSPHATE 4 MG/ML 1 ML VIAL IV ONE (12:31)
[2022-01-20] MEDS ORDERED: ONDANSETRON 4 MG/2 ML VIAL IVP ONE (12:31)
[2022-01-20] MEDS ORDERED: LIDOCAINE 1% (10MG/ML) FOR IV START INTRADERMA PRN (12:31)
[2022-01-20] MEDS ORDERED: LACTATED RINGERS 1,000 ML IV SCH (12:31)
[2022-01-20] MEDS ORDERED: SCOPOLAMINE 1.5MG/72HR PATCH TRANSDERM ONE (12:31)
[2022-01-20] MEDS ORDERED: PROPOFOL 10 MG/ML 20 ML VIAL IV ONE (13:10)
[2022-01-20] MEDS ORDERED: MIDAZOLAM 2 MG/2 ML VIAL ONE (13:10)
[2022-01-20] MEDS ORDERED: LIDOCAINE 1% INJ 10MG/ML (20 ML MDV) ONE (13:10)
[2022-01-20] MEDS ORDERED: fentaNYL (PF) 50 MCG/ML 2 ML AMP ONE (13:10)
[2022-01-20] MEDS ORDERED: BUPIVACAINE (PF) 0.25% 30 ML VIAL SQ ONE ×2 (14:00→14:13)
[2022-01-20] MEDS ORDERED: diphenhydrAMINE 50 MG/ML 1 ML VIAL IVP ONE (14:33)
[2022-01-20] MEDS: HYDROmorphone 0.5 MG/0.5 ML SYRINGE IVP PRN ×2 (14:33→14:40)
[2022-01-20 14:46] VITALS: TEMP 97.4
[2022-01-20] MEDS: MEPERIDINE 50 MG/ML SYRINGE IVP ONE ×2 (14:50→15:01)
[2022-01-20] MEDS ORDERED: KETOROLAC 15 MG/ML 1 ML VIAL IVP ONE (15:13)
[2022-01-20 15:32] VITALS: RESP 16
[2022-01-20 15:46] VITALS: BP 117/80; PULSE 78
[2022-01-20] MEDS ORDERED: HYDROcodone/APAP 5-325MG 1 EACH TAB ONE (15:51)
[2022-01-20] MEDS ORDERED: HYDROcodone/APAP 5-325MG 1 EACH TAB PO ONE (15:52)
--- NOTE | 2022-01-21 07:21 | P.OP ---
Date of Procedure: 01/20/22 Preoperative Diagnosis: Right thumb MCP radial collateral ligament tear Postoperative Diagnosis: Right thumb MCP radial collateral ligament tear Procedure(s) Performed: Right thumb MCP radial collateral ligament repair with Arthrex internal brace Implants: 3.5 mm Arthrex SwiveLock suture anchor x2. Anesthesia: MITZI Surgeon: Roly Talbot Sprinkling System Irrigator #1: Juan Pablo Boothe Estimated Blood Loss (ml): 0 Pathology: none sent Condition: stable Disposition: PACU Description of Procedure: This is a 41 year old female who sustained a right thumb RCL injury after a fall onto an outstretched hand resulting in right thumb pain and instability and presents today for surgical intervention. Risks and benefits of surgery were discussed with the patient including bleeding, damage to surrounding tissue, stiffness, infection, need for further surgery as well as risks of anesthesia including pulmonary embolism and even and the patient wished to proceed with surgical intervention. The patient was seen in the pre-operative area by myself. Consent and H&P were completed and updated. The correct extremity was marked in the pre-operative area by myself and all other questions were answered. Operative Narrative: The patient was brought to the operating room by the department of anesthesia. They remained on the portable stretcher and a rolling hand table was brought to the side of the operative extremity. Pre-operative time out was performed indicating the correct patient, procedure and laterality. All in the room agreed. Pre-operative antibiotics were given prior to skin incision. The patient was then drifted off to sleep by the department of anesthesia. A nonsterile tourniquet was then applied to the operative extremity and the right upper extremity was then prepped and draped in normal sterile fashion. The operative extremity was the exsanguinated with an esmarch bandage and the tourniquet was inflated to 250mmHg. After appropriate anesthesia the thumb was stressed which re-demonstrated greater than 30 degrees of laxity when stressing the RCL with no firm end point. Longitudinal incision was made on the radial aspect of the thumb MP joint with a 15 blade scalpel. Blunt dissection was taken down through subcutaneous tissues and branches of the superficial radial nerve were identified and protected. Heiss retractor was placed. Capsulotomy was then performed and the capsule was longitudinally split with a scalpel. Underlying capsule was from the the RCL which revealed tearing of the RCL ligament off of the metacarpal origin. A K-wire was then inserted at the RCL origin at the of the metacarpal head and inserted to the laser line. Over drill was then performed until positive stop was hit. An Arthrex 2-0 Fiberwire was then passed through the detached proximal RCL. A 3.5 mm Arthrex Swivel lock with Fibertape in addition to the 2-0 Fiberwire was inserted with the thumb MP joint held in 30 degrees of flexion. The distal portion of the RCL was found to be intact at its proximal phalanx insertion. Another K-wire was then inserted just distal to the intact RCL origin. Over drill was performed to a positive stop. The Fibertape was then inserted into bone with a 3.5 mm Arthrex Swivel lock suture anchor with the thumb MP joint held in 30 degrees of flexion with good purchase to complete the internal brace portion of the procedure. Stability both radially and ulnarly was checked and the thumb was stable with firm end points. MP flexion was tested and appropriate tension was appreciated. The wound was then irrigated with sterile saline. Capsule was closed with a running 4-0 Monocryl suture followed by skin closure with several interrupted subcutaneous sutures followed by a running subcuticular stitch. Local block consisting of 10cc of .5% bupivacaine was then used to block the superficial radial nerve distribution as well as a median nerve block at the wrist. Mastisol and steri strips were placed on skin and a thumb spica splint was applied. Tourniquet was let down and all digits had immediate perfusion. The patient was then woken by the department of anesthesia and transferred to PACU in stable condition. Juan Pablo ARANA was present and assisted throughout the entire case to assist in implant placement and protection of neurovascular structures. Roly Talbot D.O. Orthopedic Hand/Upper Extremity Surgeon
== END 2022-01-20 16:26 | disposition home or self-care (01) ==
LOC: OR 12:03
PROVIDERS: ATTEND Orthopaedic Surgery Hand Surgery
DX: S63.641A Sprain of metacarpophalangeal joint of right thumb, initial encounter (principal); W18.39XA Other fall on same level, initial encounter; M79.7 Fibromyalgia; I10 Essential (primary) hypertension; R41.3 Other amnesia; M19.90 Unspecified osteoarthritis, unspecified site; M06.9 Rheumatoid arthritis, unspecified; G40.909 Epilepsy, unspecified, not intractable, without status epilepticus; E07.9 Disorder of thyroid, unspecified; Z85.841 Personal history of malignant neoplasm of brain; M35.00 Sjogren syndrome, unspecified; G47.00 Insomnia, unspecified; Z87.19 Personal history of other diseases of the digestive system; G43.909 Migraine, unspecified, not intractable, without status migrainosus; Z98.890 Other specified postprocedural states; Z98.891 History of uterine scar from previous surgery; R68.81 Early satiety; Z90.49 Acquired absence of other specified parts of digestive tract; F17.200 Nicotine dependence, unspecified, uncomplicated; F41.9 Anxiety disorder, unspecified; F32.A Depression, unspecified; G62.9 Polyneuropathy, unspecified; Z79.899 Other long term (current) drug therapy; Z79.890 Hormone replacement therapy
CPT/HCPCS: 81025; 26540; C1713; J2250; J1200; J1100; J2175; J0690; J2405; J2001; J3010; J1885; J2704; J1170

== ENCOUNTER 2022-03-21 02:49 | Emergency (ER) | payer MEDICARE, OTHER ==
[2022-03-21 03:10] VITALS: BP 140/97; PULSE 113; RESP 20; TEMP 97.8
--- NOTE | 2022-03-21 06:30 | XR ---
EXAMINATION TYPE: XR ankle complete RT DATE OF EXAM: 03/21/2022 COMPARISON: NONE HISTORY: Pain TECHNIQUE: Pain FINDINGS: Ankle mortise is anatomic. I see no fracture nor dislocation there is mild soft tissue swel ling around the ankle joint IMPRESSION: Soft tissue swelling.. Calcaneal spurring. No fracture.
== END 2022-03-21 06:10 | disposition left against medical advice (07) ==
LOC: EC 02:49
DX: Z53.21 Procedure and treatment not carried out due to patient leaving prior to being seen by health care provider (principal)
CPT/HCPCS: 93005; 99499

== ENCOUNTER 2022-10-15 17:20 | Observation (INO) | payer MEDICARE, OTHER ==
[2022-10-15 18:13] LABS: Basophils % (A) 0 %; Eosinophils # (A) 0.1 k/uL (0-0.7); Eosinophils % (A) 1 %; HCT 42.6 % (34.0-46.0); HGB 13.9 gm/dL (11.4-16.0); Lymphocytes # (A) 1.2 k/uL (1.0-4.8); Lymphocytes % (A) 15 %; MCH 32.3 pg (25.0-35.0); MCHC 32.6 g/dL (31.0-37.0); MCV 99.1 fL (80.0-100.0); Mean Platelet Volume 7.5; Monocytes # (A) 0.2 k/uL (0-1.0); Monocytes % (A) 3 %; Neutrophils # (A) 5.8 k/uL (1.3-7.7); Neutrophils % (A) 78 %; Platelet Count 244 k/uL (150-450); RDW 13.1 % (11.5-15.5); WBC 7.5 k/uL (3.8-10.6)
[2022-10-15 18:25] LABS: INR 0.8 (<1.2); Partial Thromboplastin Time 27.2 sec (22.0-30.0); Prothrombin Time 9.4 sec (9.0-12.0)
[2022-10-15 18:29] LABS: Albumin 4.7 g/dL (3.5-5.0); Calcium 9.5 mg/dL (8.4-10.2); Potassium 3.8 mmol/L (3.5-5.1); Total Bilirubin 0.2 mg/dL (0.2-1.3); Total Protein 7.3 g/dL (6.3-8.2)
[2022-10-15 18:40] LABS: Appearance,Urine Clear (Clear); Bilirubin,Urine Negative (Negative); Blood,Urine Negative (Negative); Color,Urine Colorless; Glucose,Urine (UA) Negative (Negative); Ketones,Urine Negative (Negative); Leukocyte Esterase,Urine Negative (Negative); Nitrite,Urine Negative (Negative); Protein,Urine Negative (Negative); Specific Gravity,Urine 1.007 (1.001-1.035); Urobilinogen,Urine <2.0 mg/dL (<2.0)
--- NOTE | 2022-10-15 19:21 | XR ---
EXAMINATION TYPE: XR chest 2V DATE OF EXAM: 10/15/2022 6:37 PM COMPARISON: None TECHNIQUE: XR chest 2V Frontal and lateral views of the chest. CLINICAL INDICATION:Female, 42 years old with history of Chest Pain; FINDINGS: Lungs/Pleura: There is no evidence of pleural effusion, focal consolidation, or pneumothorax. Pulmonary vascularity: Unremarkable. Heart/mediastinum: Cardiomediastinal silhouette is unremarkable. Musculoskeletal: No acute osseous pathology. IMPRESSION: No acute cardiopulmonary disease/process.
[2022-10-15] MEDS ORDERED: ONDANSETRON 4 MG/2 ML VIAL IVP STA (20:46)
[2022-10-15] MEDS ORDERED: KETOROLAC 15 MG/ML 1 ML VIAL IVP STA (20:46)
--- NOTE | 2022-10-15 20:51 | ED ---
Chest Pain HPI - General Chief Complaint: Chest Pain Stated Complaint: chest pain, SOB Time Seen by Provider: 10/15/22 20:12 Source: patient, RN notes reviewed Mode of arrival: ambulatory Limitations: no limitations - History of Present Illness Initial Comments: This is a 42-year-old female with a past medical history of hypertension, rheumatoid arthritis, fibromyalgia, seizure disorder, and hypothyroidism, who presents to the emergency department for chest pain. Over the last week she has had intermittent episodes of substernal chest discomfort described as a tightness and shortness of breath with radiation into the back and left arm as well as associated nausea. Also reports pain in the left upper quadrant. She has seen cardiology in the past but does not recall who. Also denies ever having a stress test or echocardiogram. They have recommended she start metoprolol, however she is unsure what the reasoning was for this. They were also concerned that it may interact with her thyroid medication, so she has not started taking it. She has a significant family history of cardiac problems in both of her parents, grandparents, and aunts. Family members have in their 20s and 40s due to fatal heart attacks. Additionally, over the last week she has had difficulty walking. States that she is unable to use her legs and that they will give out on her. Describes her legs as feeling like "jello". Her family has been helping her walk. Also reports dizziness, double vision, and difficulty finishing her sentences. 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 Her neurologist is Dr. Iglesias. Denies any fevers, chills, sore throat, cough, palpitations, abdominal pain, vomiting, diarrhea, or back pain. MD Complaint: chest pain Onset/Timin -: week(s) Pain Location: substernal Pain Radiation: LUE - Related Data Home Medications Medication Instructions Recorded Confirmed Levothyroxine Sodium [Synthroid] 125 mcg PO DAILY 08/05/17 10/15/22 Losartan/Hydrochlorothiazide 1 tab PO DAILY 08/05/17 10/15/22 [Losartan-Hctz 100-25 mg Tab] Triamterene/Hydrochlorothiazid 1 cap PO DAILY 08/05/17 10/15/22 [Dyazide 37.5-25 Capsule] clonazePAM [KlonoPIN] 1 mg PO QID 06/08/20 10/15/22 Celecoxib [CeleBREX] 400 mg PO DAILY 07/25/20 10/15/22 Omeprazole 20 mg PO DAILY 07/25/20 10/15/22 Topiramate [Topamax] 100 mg PO BID 07/25/20 10/15/22 Galcanezumab-Gnlm [Emgality Pen] 120 mg SQ Q30D 01/05/21 10/15/22 Ergocalciferol [Vitamin D2 (1250 1,250 mcg PO ESQUIVEL 01/05/22 10/15/22 Mcg = 41314 Iu)] Gabapentin [Neurontin] 400 mg PO TID 01/05/22 10/15/22 Rizatriptan Benzoate [Rizatriptan] 10 mg PO DAILY PRN 01/05/22 10/15/22 lamoTRIgine [LaMICtal] 100 mg PO DAILY 01/05/22 10/15/22 levETIRAcetam [Keppra] 750 mg PO Q12HR 01/05/22 10/15/22 traZODone HCL 300 mg PO HS 01/05/22 10/15/22 Fluticasone Nasal [place] [Flonase 2 spray EA NOSTRIL DAILY 10/15/22 10/15/22 Nasal [place]] HYDROcodone/APAP 5-325MG [[place] 1 tab PO TID 10/15/22 10/15/22 5-325] Phentermine HCl [Adipex-P] 37.5 mg PO DAILY 10/15/22 10/15/22 Venlafaxine HCl [Effexor XR] 75 mg PO DAILY 10/15/22 10/15/22 Allergies Allergy/AdvReac Type Severity Reaction Status Date / Time No Known Allergies Allergy Verified 10/15/22 22:16 Review of Systems ROS Statement: Those systems with pertinent positive or pertinent negative responses have been documented in the HPI. ROS Other: All systems not noted in ROS Statement are negative. EKG Findings - EKG Comments: EKG Findings:: Sinus tachycardia. Ventricular rate 111 bpm, OH interval 144 ms, QRS duration 89 ms, QTC 411 ms. - EKG Results: EKG: interpreted by MASTER Past Medical History Past Medical History: Fibromyalgia, Hypertension, Memory Impairment, Osteoarthritis (OA), Rheumatoid Arthritis (RA), Seizure Disorder, Thyroid Disorder Additional Past Medical History / Comment(s): brain stem tumor, sjogren's syndrome, DDD, insomnia, degenerative joint, diverticulitis, migraines, last seizure 1 yr ago, History of Any Multi-Drug Resistant Organisms: None Reported Past Surgical History: Breast Surgery, Section, Cholecystectomy, Uterine Ablation Additional Past Surgical History / Comment(s): brain tumor removed 2014, tummy tuck 2011 , C section X-5, rt breast lumptectomy Past Anesthesia/Blood Transfusion Reactions: Motion Sickness, Postoperative N ausea & Vomiting (PONV) Past Psychological History: Anxiety, Bipolar, Depression Smoking Status: Current some day smoker Past Alcohol Use History: Occasional Past Drug Use History: None Reported - Past Family History Mother Family Medical History: No Reported History General Exam Limitations: no limitations General appearance: alert Head exam: Present: atraumatic, normocephalic, normal inspection Eye exam: Present: normal appearance, PERRL, EOMI. Absent: scleral icterus, conjunctival injection, periorbital swelling Pupils: Present: normal accommodation ENT exam: Present: normal exam, mucous membranes moist, TM's normal bilaterally, normal external ear exam Respiratory exam: Present: normal lung sounds bilaterally. Absent: respiratory distress, wheezes, rales, rhonchi, stridor Cardiovascular Exam: Present: normal rhythm, tachycardia GI/Abdominal exam: Present: soft, normal bowel sounds. Absent: distended, tenderness, guarding, rebound, rigid Neurological exam: Present: alert, oriented X3 Expanded Motor strength exam: RUE: 4, LUE: 4, RLE: 4, LLE: 4 Psychiatric exam: Present: normal affect, normal mood Skin exam: Present: warm, dry, intact, normal color. Absent: rash Course Vital Signs 10/15/22 10/15/22 17:37 22:00 Temperature 97.8 F Pulse Rate 107 H 104 H Respiratory 20 16 Rate Blood Pressure 97/62 111/67 O2 Sat by Pulse 98 96 Oximetry Chest Pain MDM - MDM This is a 42-year-old female presents emergency department for chest pain, shortness of breath, and difficulty walking. Lab work obtained and found to be nonactionable, including a negative troponin. My interpretation of the chest x- ray identifies no signs of consolidations or infiltrates. The patient states that her d-dimer is almost always elevated due to the rheumatoid arthritis and her other conditions. CTA of the chest was subsequently obtained without a d- dimer prior due to the chest pain, shortness of breath, and tachycardia. On my interpretation of the CTA, I do not identify any signs of a pulmonary embolus, however there is streaking in both lower lobes, worse on the left. Computed tomography scan of the brain obtained as well, and on my interpretation I do not identify any signs of an intracranial hemorrhage, tumor, or mass effect. However, the patient states that the tumor is not visible without an MRI with contrast. Due to the patient's description of her chest pain with a significant family history, will admit patient to medicine with cardiology consult. Will also consult neurology due to the patient's difficulty with ambulation, diplopia, and dizziness with her known history of brain stem tumor. PT and OT evals ordered as well due to her unstable gait and poor motor skills. This case was discussed in detail with the attending ED physician. Presentation, findings, and treatment plan discussed in detail as well. Disposition Clinical Impression: Chest pain, Weakness, Cannot walk, Diplopia Disposition: ADMITTED IP TO THIS HOSP
--- NOTE | 2022-10-15 21:30 | CT ---
EXAMINATION TYPE: CT brain wo con CT DLP: 1158.4 mGycm, Automated exposure control for dose reduction was used. DATE OF EXAM: 10/15/2022 9:13 PM COMPARISON: MR brain 12/19/2020. CLINICAL INDICATION:Female, 42 years old with history of Dizziness, memory loss, difficulty walking, chest pain, shaky hands, difficulty walking started yesterday. TECHNIQUE: Brain: Axial CT images of the brain were obtained with coronal and sagittal reformats created and rev iewed. Contrast used: None. Oral contrast used: None. FINDINGS: Brain: Extra-axial spaces: No abnormal extra-axial fluid collections. Ventricular system: Within normal limits Cerebral parenchyma: No acute intraparenchymal hemorrhage or mass effect. The renae-white junction is well differentiated. Cerebellum: Unremarkable. Mass effect: No evidence of midline shift. Intracranial vasculature: unremarkable Soft tissues: Normal. Calvarium/osseous structures: No depressed skull fracture. Paranasal sinuses and mastoid air cells: Mild scattered paranasal sinus disease. Visualized orbits: Orbital contents are intact. IMPRESSION: No acute intracranial process.
[2022-10-15 21:31] LABS: Amylase 50 U/L (30-110); Creatine Kinase 92 U/L (30-135); Lipase 81 U/L (23-300)
--- NOTE | 2022-10-15 21:37 | CT ---
EXAMINATION TYPE: CT chest angio for PE CT DLP: 459.2 mGycm, Automated exposure control for dose reduction was used. DATE OF EXAM: 10/15/2022 9:14 PM COMPARISON: Chest radiograph same day. CLINICAL INDICATION:Female, 42 years old with history of ELLA, tachycardia; chest pain, shaky hands, d ifficulty walking started yesterday. TECHNIQUE/CONTRAST: CTA scan of the thorax is performed with IV Contrast, patient injected with 100ML mL of Isovue 370, p ulmonary embolism protocol. MIP images are created and reviewed. FINDINGS: Pulmonary Artery: There is no evidence for a filling defect within the pulmonary vasculature to sugge st acute pulmonary embolism. The pulmonary artery is of normal size. Lungs/Pleura: No evidence of focal consolidation, pleural effusion or pneumothorax. Streaky atelectas is seen within the lung bases left greater than right. Airway: Large airways are patent. Heart: Heart is within normal limits for size.. Vasculature: No evidence of aortic aneurysm. 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 Mediastinum: No gross evidence of adenopathy. Musculoskeletal: No acute osseous abnormalities, multilevel disc degeneration changes. Soft Tissues: Unremarkable. Lower neck: No significant findings. Upper Abdomen: No significant findings. IMPRESSION: 1. No evidence of pulmonary embolism. 2. Streaky atelectasis within lung bases, left greater than right.
[2022-10-15] MEDS ORDERED: HYDROcodone/APAP 5-325MG 1 EACH TAB PO STA (22:06)
[2022-10-15] MEDS ORDERED: IBUPROFEN 400 MG TAB PO PRN (22:24)
[2022-10-15] MEDS ORDERED: ACETAMINOPHEN TAB 325 MG TAB PO PRN (22:24)
[2022-10-15] MEDS ORDERED: NALOXONE 0.4 MG/ML 1 ML VIAL IV PRN (22:24)
[2022-10-15 23:22] LABS: T4, Free (Free Thyroxine) 1.37 ng/dL (0.78-2.19)
[2022-10-16] MEDS: KETOROLAC 15 MG/ML 1 ML VIAL IVP PRN ×3 (03:32→18:24)
[2022-10-16] MEDS: PANTOPRAZOLE 40 MG TABLET PO SCH (06:01)
[2022-10-16] MEDS: LEVOTHYROXINE 125 MCG TAB PO SCH (06:01)
[2022-10-16] MEDS: FLUTICASONE 50MCG/SPRAY NASAL 16GM EA NOSTRIL SCH ×2 (08:47→17:12)
[2022-10-16] MEDS: GABAPENTIN 400 MG CAP PO SCH ×3 (08:48→21:15)
[2022-10-16] MEDS: TOPIRAMATE 100 MG TAB PO SCH ×2 (08:48→21:15)
[2022-10-16] MEDS: VENLAFAXINE HCL ER 75 MG CAP PO SCH (08:48)
[2022-10-16] MEDS: LOSARTAN 50 MG TAB PO SCH (08:48)
[2022-10-16] MEDS: lamoTRIgine 100 MG TAB PO SCH (08:48)
[2022-10-16] MEDS: clonazePAM 1 MG TAB PO SCH ×4 (08:48→21:15)
[2022-10-16] MEDS: NON FORMULARY DRUG (Phentermine Hcl [Adipex-P] 37.5 MG Tablet) PO SCH (08:49)
[2022-10-16] MEDS: HYDROcodone/APAP 5-325MG 1 EACH TAB PO PRN ×2 (08:49→17:14)
[2022-10-16] MEDS ORDERED: NON FORMULARY DRUG (Celecoxib [Celebrex] 400 MG Capsule) PO SCH (09:00)
[2022-10-16] MEDS ORDERED: hydroCHLOROthiazide 25 MG TAB PO SCH (09:00)
[2022-10-16] MEDS ORDERED: TRIAMTERENE-HCTZ 37.5-25MG 1 EACH CAP PO SCH (09:00)
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
--- NOTE | 2022-10-16 10:55 | MR ---
EXAMINATION TYPE: MR brain wo/w con DATE OF EXAM: 10/16/2022 COMPARISON: 11/30/2021 HISTORY: 42-year-old female unsteady gait, diplopia. Hx of medulla cyst. TECHNIQUE: Multiplanar, multisequence images of the brain and brainstem were acquired before and aft er administration of 8 mL IV Gadavist. Diffusion weighted imaging is performed. FINDINGS: No evidence for acute infarction, hemorrhage, mass, mass effect, midline shift, herniation, effacemen t of basal cisterns, or extra-axial fluid collection. The ventricles and sulci are age-appropriate. Major intracranial flow voids are intact. Hypoplastic V4 segment right vertebral artery noted. T2/FLAIR weighted sequences show minimal punctate foci of bright signal change in the periventricular and subcortical regions, less than 3 on either side. Nonspecific, probably chronic age related andino es. Similar from prior exam. Partially empty sella. Otherwise, midline structures demonstrate normal morphology. The craniocervic al junction is normal. Post contrast images demonstrate no evidence of pathologic enhancement. Dural venous sinuses are pat ent. Mild mucosal thickening ethmoid air cells. Globes are intact. 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 Additional stable 8 mm cyst left palatine tonsil, likely mucosal retenti on cyst. IMPRESSION: No acute intracranial abnormality seen. Unchanged few punctate nonspecific foci of T2 bright white ma tter change, likely chronic changes. Mild chronic ethmoid sinus disease.
--- NOTE | 2022-10-16 13:58 | CA ---
Transthoracic Echo Report Name: Dora Erickson Age: 42 Gender: F : 1980 Exam Date: 10/16/2022 12:36 Exam Location: [facility] Ht (in): 64 Wt (lb): 180 Ordering Physician: Joseluis San MD ([id number]) Attending/Referring Phys: Jaswinder BELTRAN Saxophone Player Melva Breen RDCS Procedure CPT: Indications: CP Cardiac Hx: Technical Quality: Fair Contrast 1: Total Dose (mL): Contrast 2: Total Dose (mL): MEASUREMENTS (Male / Female) Normal Values 2D ECHO LV Diastolic Diameter PLAX 3.0 cm 4.2 - 5.9 / 3.9 - 5.3 cm LV Systolic Diameter PLAX 2.3 cm IVS Diastolic Thickness 1.3 cm 0.6 - 1.0 / 0.6 - 0.9 cm LVPW Diastolic Thickness 1.4 cm 0.6 - 1.0 / 0.6 - 0.9 cm LV Relative Wall Thickness 0.9 RV Internal Dim ED PLAX 3.1 cm LA Volume 34.5 cm??? 18 - 58 / 22 - 52 cm??? M-MODE Aortic Root Diameter MM 3.5 cm LA Systolic Diameter MM 3.3 cm LA Ao Ratio MM 1.0 AV Cusp Separation MM 2.0 cm DOPPLER AV Peak Velocity 101.0 cm/s AV Peak Gradient 4.1 mmHg AV Mean Velocity 74.0 cm/s AV Mean Gradient 2.4 mmHg AV Velocity Time Integral 16.9 cm LVOT Peak Velocity 87.6 cm/s LVOT Peak Gradient 3.1 mmHg MV Area PHT 4.9 cm??? Mitral E Point Velocity 56.9 cm/s Mitral A Point Velocity 82.2 cm/s Mitral E to A Ratio 0.7 MV Deceleration Time 156.3 ms MV E' Velocity 8.9 cm/s Mitral E to MV E' Ratio 6.4 TR Peak Velocity 208.2 cm/s TR Peak Gradient 17.3 mmHg Right Ventricular Systolic Press 22.3 mmHg FINDINGS Left Ventricle Moderately increased left ventricular wall thickness. Normal left ventricular systolic function with no obvious regional wall motion abnormalities. Left ventricular ejection fraction is estimated at 55-60 %. Right Ventricle Normal right ventricular size and function. Right ventricular systolic pressure within normal limits. Right Atrium Normal right atrial size. Left Atrium Normal left atrial size. No evidence for an atrial septal defect. Mitral Valve Structurally normal mitral valve. No mitral stenosis. No evidence for mitral valve prolapse. Trace to mild mitral regurgitation. Aortic Valve Trileaflet aortic valve. No aortic valve stenosis or regurgitation. Tricuspid Valve Structurally normal tricuspid valve. Mild tricuspid regurgitation. Pulmonic Valve Trace pulmonic regurgitation. Pericardium No pericardial effusion. Aorta Normal size aortic root and proximal ascending aorta. CONCLUSIONS Normal LV systolic function Previewed by: Dr. Joseluis San MD (Electronically Signed) Final Date: 16 October 2022 13:57
[2022-10-16] MEDS ORDERED: ALPRAZolam 0.25 MG TAB PO PRN (16:07)
[2022-10-16] MEDS: METOPROLOL TARTRATE 12.5 MG TAB PO SCH (17:09)
--- NOTE | 2022-10-16 17:31 | CT ---
EXAMINATION TYPE: CT CervThorLumbar spine wo/wco DATE OF EXAM: 10/16/2022 COMPARISON: HISTORY: pt has leg tremors and is unable to ambulate. no known injury. CT DLP: 4255.4 mGycm Automated exposure control for dose reduction was used. CONTRAST: Performed without and with IV Contrast, patient injected with 100 mL of Isovue 300. Images obtained from the skull base to S5 vertebra without and with the IV contrast. Cervical thoracic and lumbar vertebra have fairly normal spacing and alignment. There is minor spurri ng in the upper thoracic spine. There is minor spurring in the lower cervical spine at C6-7. There is infiltrate and atelectasis at both posterior lung bases. No thoracic or lumbar paraspinal mass. No e vidence of retroperitoneal adenopathy. The sacrum appears intact. Sacroiliac joints are intact. No pathologic enhancement. No evidence of ce rvical thoracic or lumbar spinal stenosis. IMPRESSION: Minor degenerative hypertrophic changes in the spine. No fracture.
[2022-10-16 18:01] LABS: C Reactive Protein 0.9 mg/dL (<1.0)
[2022-10-16] MEDS: ONDANSETRON 4 MG/2 ML VIAL IVP PRN (18:28)
[2022-10-16 18:36] LABS: Amphetamine Screen,Urine Detected (NotDetected); Barbiturate Screen,Urine Not Detected (NotDetected); Benzodiazepines Screen,Urine Not Detected (NotDetected); Cocaine Screen,Urine Not Detected (NotDetected); Methadone Screen, Urine Not Detected (NotDetected); Opiate Screen,Urine Detected (NotDetected); Oxycodone Screen, Urine Not Detected (NotDetected); Phencyclidine Screen,Urine Not Detected (NotDetected); Tricyclic Antidepressant,Urine Detected (NotDetected); Urn Cannabinoid Scrn Not Detected (NotDetected)
[2022-10-16] MEDS ORDERED: traZODone HCL 100 MG TAB PO SCH (21:00)
--- NOTE | 2022-10-17 03:10 | CONS ---
CONSULTATION CHIEF COMPLAINT: Chest pain. HISTORY OF PRESENT ILLNESS: Dora is a 42-year-old lady with history of hypertension, hypothyroidism, history of intracranial mass lesion, who presented to hospital having an episode of chest discomfort that was sharp, mild intensity, unrelated to exertion as well as for diaphoresis. She also complains of weakness involving both upper and lower extremities, and is currently being worked up for the same. EKG does not reveal ischemic changes, and cardiac enzymes have been negative. An echocardiogram I performed shows normal LV systolic function without any wall motion abnormalities. I believe chest discomfort is noncardiac in origin, and does not require any further workup at this time. PAST MEDICAL HISTORY: Significant for hypertension, hypothyroidism, seizures. MEDICATIONS: At home include, 1. Celebrex. 2. Vitamin D. 3. Trazodone. 4. Dyazide. 5. Losartan. 6. Synthroid. 7. Keppra. 8. Effexor. 9. Omeprazole. 10.Lamictal. ALLERGIES: There are no known drug allergies. FAMILY HISTORY: Negative for premature coronary artery disease. SOCIAL HISTORY: Negative for current smoking, EtOH abuse or drug abuse. REVIEW OF SYSTEMS: A review of systems has been performed, pertinent are as documented. PHYSICAL EXAMINATION: GENERAL: Comfortable at rest. VITAL SIGNS: Stable. NECK: There is no jugular venous distention. Carotid upstroke is normal. There is no bruit. CHEST: Reveals good air entry bilaterally. HEART: Reveals first and second heart sounds. No gallop. No murmur. No rub. ABDOMEN: Soft, nontender. EXTREMITIES: Did not reveal any edema. Peripheral pulses are felt. LABORATORY DATA: Labs are as shown above. ASSESSMENT AND PLAN: Precordial chest pain, atypical and probably noncardiac. No further workup at this time. I will follow the patient on an as-needed basis. MMODL / IJN: [id number] /
--- NOTE | 2022-10-17 03:51 | HP ---
HISTORY AND PHYSICAL CHIEF COMPLAINT: Weakness, tremors. HISTORY OF PRESENT ILLNESS: 42-year-old woman with a past history of multiple medical problems including medullary cyst being followed by Dr. Tamayo in outpatient setting, was complaining of chest pains, weakness, numbness, tremors, difficulty walking. The patient came to [facility]. A complete neurologic evaluation has been done including the brain MRI, which is normal according to Dr. Castillo, the neurologist. Cardiology has also seen the patient and a 2D echo with Doppler showed no abnormalities. There is no history of fever, rigors, chills. The patient had tachycardia. PAST MEDICAL HISTORY: Reviewed, including fibromyalgia, medullary cyst. The rest of the history and the whole chart is reviewed. HOME MEDICATIONS: Reviewed include trazodone. Doses and rest of medication noted. ALLERGIES: None. FAMILY HISTORY: No history of heart disease or strokes in the family. SOCIAL HISTORY: History of smoking. REVIEW OF SYSTEMS: 14-point review of systems negative except as mentioned earlier. PHYSICAL EXAM: VITAL SIGNS: Pulse is 100, blood pressure is 120/87, respiration 18. HEENT: Conjunctivae normal. NECK: No jugular venous distention. CARDIOVASCULAR: S1, S2 muffled. RESPIRATION: Breath sounds diminished at the bases. No rhonchi, no crackles. ABDOMEN: Soft, nontender. LEGS: No edema. No swelling. NERVOUS SYSTEM: No focal deficit. SKIN: No ulcer, rash, bleeding. JOINTS: No active deforming arthropathy. LABS: Noted. TSH is 12.80, the free T4 is normal. MRI and other CAT scan noted. ASSESSMENT: 1. Chest pain for evaluation, rule out coronary artery disease, myocardial infarction ruled out. 2. Tachycardia. 3. Generalized weakness for evaluation. 4. Normal MRI scan. 5. History of fibromyalgia. 6. Multiple medical issues. RECOMMENDATION: This 42-year-old woman presented with multiple complex medical issues, we will monitor the patient closely. I would recommend free T3 evaluation. Otherwise, can continue the home medications. I will add a small dose of beta blockers otherwise empirically. Otherwise, continue to monitor. Guarded prognosis. Further recommendations to follow. See orders for details. MMODL / IJN: [id number] /
[2022-10-17] MEDS: LEVOTHYROXINE 125 MCG TAB PO SCH (06:07)
[2022-10-17] MEDS: PANTOPRAZOLE 40 MG TABLET PO SCH (06:07)
[2022-10-17 08:23] VITALS: BP 99/65; PULSE 88; RESP 14; TEMP 98.4
[2022-10-17] MEDS ORDERED: ERGOCALCIFEROL 1,250 MCG (50,000 IU) CAPSULE PO SCH (09:00)
[2022-10-17] MEDS: FLUTICASONE 50MCG/SPRAY NASAL 16GM EA NOSTRIL SCH (09:22)
[2022-10-17] MEDS: NON FORMULARY DRUG (Phentermine Hcl [Adipex-P] 37.5 MG Tablet) PO SCH (09:23)
[2022-10-17] MEDS: lamoTRIgine 100 MG TAB PO SCH (09:23)
[2022-10-17] MEDS: clonazePAM 1 MG TAB PO SCH (09:23)
[2022-10-17] MEDS: METOPROLOL TARTRATE 12.5 MG TAB PO SCH (09:23)
[2022-10-17] MEDS: VENLAFAXINE HCL ER 75 MG CAP PO SCH (09:23)
[2022-10-17] MEDS: LOSARTAN 50 MG TAB PO SCH (09:23)
[2022-10-17] MEDS: TOPIRAMATE 100 MG TAB PO SCH (09:23)
[2022-10-17] MEDS: GABAPENTIN 400 MG CAP PO SCH (09:23)
[2022-10-17 09:55] LABS: HCT 39.5 % (37.2-46.3); MCH 32.3 pg (27.0-32.0); MCHC 32.9 g/dL (32.0-37.0); MCV 98.3 fL (80.0-97.0); Mean Platelet Volume 9.4 fL (9.5-12.2); NRBC Per 100 WBC 0 /100 WBCS (0.0-0.0); Platelet Count 255 X 10*3/uL (140-440); RBC 4.02 X 10*6/uL (4.10-5.20); RDW 13.2 % (11.5-14.5); WBC 4.12 X 10*3/uL (4.50-10.00)
[2022-10-17 10:26] LABS: African American GFR (CKD) 73.3 (60.0-200.0); Anion Gap 7.8 mmol/L (10.00-18.00); BUN/Creat Ratio 10.28 Ratio (12.00-20.00); Blood Urea Nitrogen 11.1 mg/dL (9.0-27.0); Calcium 9.4 mg/dL (8.7-10.3); Carbon Dioxide 26.8 mmol/L (20.0-27.5); Non-African American GFR(CKD) 63.3 (60.0-200.0); Potassium 4.3 mmol/L (3.5-5.5)
[2022-10-17] MEDS: ONDANSETRON 4 MG/2 ML VIAL IVP PRN (10:30)
[2022-10-17] MEDS: KETOROLAC 15 MG/ML 1 ML VIAL IVP PRN (10:30)
--- NOTE | 2022-10-17 11:30 | P.PN ---
Subjective Progress Note Date: 10/17/22 The patient is seen at bedside and per the patient's nurse she continues to have unsteady gait and is asking me why? Per the nurse she is able to cross her legs and bends her knees without any issues and nursing staff she overplays her symptoms. Objective - Vital Signs Vital signs: Vital Signs Temp 98.4 F 10/17/22 07:00 Pulse 88 10/17/22 07:00 Resp 14 10/17/22 07:00 BP 99/65 10/17/22 07:00 Pulse Ox 100 10/17/22 07:00 FiO2 Intake & Output 10/16/22 10/17/22 10/17/22 18:59 06:59 18:59 Intake Total 240 Balance 240 Intake: Oral 240 Other: # Voids 1 1 - Exam GENERAL: The patient is lying in bed and is not in acute distress. NEUROLOGICAL: Higher mental function: The patient is awake, alert, oriented to self, place and time. Patient is following commands. No aphasia and no neglect. Cranial nerves: The pupils are round, equal and reactive to light. Visual lombardo are full to confrontation throughout. Extraocular movement is intact no nystagmus is noted. Facial sensation is normal to touch throughout. The facial strength is normal throughout. Hearing is normal bilaterally to hand rub. Tongue is midline and moved [id number] without any difficulty. No dysarthria is noted. Shoulder shrug is normal bilaterally. Motor: The strength is 5 over 5 throughout. Normal tone and bulk. No tremor is noted in the lowers or uppers. She is able to cross her legs without any issues. Cerebellum: Normal finger to nose bilaterally. Sensation: Sensation is normal to touch throughout. Reflexes (right/left): 2+ throughout. Plantars are downgoing bilaterally. SOME OF THE WORK-UP DURING THIS HOSPITAL VISIT CONSISTED OF: CBC with differential is unremarkable Chemistry panels creatinine is 1.08 and the TSH is 12.80 which is elevated but the free T4 is 1.37 otherwise rest is unremarkable. CK level is 92-3 the normal limits CK level is 92 CRP 0.9, ESR is 5 AST and ALT is within normal limits. UDS: Positive for opiates, tricyclic and the amphetamine CT of the head is reported as no acute intracranial process. MRI Brain w/ and w/o contrast is reported as no acute intracranial abnormality seen. Unchanged a few punctate nonspecific foci of T2 bright white matter change, likely chronic changes. Mild chronic ethmoid sinus disease. I personally reviewed the MRI with the reading radiologist (Dr. Johnston) and he felt the cystic lesion in medulla seen in past has resolved and no enhancement. I personally agree with the findings. 2-D echo was reported as normal left ventricle systolic function. Left atrium is normal in size no evidence for atrial septal defect. CT cervical thoracic and lumbar is reported as moderate degenerative hypertrophic changes in the spine. No fracture. - Labs CBC & Chem 7: 10/17/22 04:04 10/17/22 04:04 Labs: Abnormal Lab Results - Last 24 Hours (Table) 10/16/22 10/17/22 10/17/22 Range/Units 17:50 04:04 04:04 WBC 4.12 L (4.50-10.00) X 10*3/uL RBC 4.02 L (4.10-5.20) X 10*6/uL MCV 98.3 H (80.0-97.0) fL MCH 32.3 H (27.0-32.0) pg MPV 9.4 L (9.5-12.2) fL Anion Gap 7.80 L (10.00-18.00) mmol/L BUN/Creatinine Ratio 10.28 L (12.00-20.00) Ratio Urine Opiates Screen Detected H (NotDetected) U Tricyclic Antidepress Detected H (NotDetected) Ur Amphetamines Screen Detected H (NotDetected) Assessment and Plan Assessment: * Acute Diplopia with unsteady gait, feeling trembling of legs >arms. Seems more functional (Per nursing staff moving her legs without any issues, crossing her legs and on examination no trembling of extremities). Normal MRI Brain and no mass or bleeding in CT spinal region. * Medullary cyst (was notified neoplasm of unknown) since 2014 s/p resection but was told had reemergence of cyst but has been getting surveillance MRI and last in our system was 11/2021 and was reported as stable---on current MRI Brain cyst has resolved and MRI was normal. * Chest pain * History of reported seizures * Hypothyroidism * Fibromyalgia * Rheumatoid arthritis Plan: I recommend the patient to follow-up with her neurologist (Dr. Iglesias) as out patient for further work-up. Recommend outpatient physical and occupation therapy. PT and OT are consulted Continue neuro checks On cardiac monitoring Cardiology is consulted for chest pain For her thyroid abnormality will defer the management to primary team She needs to follow-up with a neurologist as an outpatient within 1-2 weeks. Otherwise no additional workup is needed from a neurologic perspective. We'll sign off. Please reconsult as needed Time with Patient: Less than 30
--- NOTE | 2022-10-17 20:17 | DS ---
DISCHARGE SUMMARY FINAL DIAGNOSES: 1. Chest pain for evaluation, myocardial infarction ruled out. 2. Tachycardia. 3. Generalized weakness. 4. Normal CT of the neck and as well as MRI of the brain. 5. History of fibromyalgia. 6. Multiple medical issues. DISCHARGE DISPOSITION: The patient will be discharged in stable condition with guarded prognosis. HISTORY OF PRESENT ILLNESS: This 42-year-old woman with a past medical history of multiple medical problems admitted with multiple symptoms including chest pain and generalized weakness. The patient was evaluated by Neurology, Dr. Castillo, who cleared the patient for discharge and cardiology recommended outpatient followup. The patient improved significantly. PHYSICAL EXAMINATION: VITAL SIGNS: Stable. CARDIOVASCULAR: S1, S2. ABDOMEN: Soft. NERVOUS SYSTEM: No focal deficits. DISCHARGE MEDICATIONS: The patient is recommended to take home medications and Lopressor 12.5 mg p.o. daily. Follow up with Dr. Tamayo in 1 to 2 days. Follow up with Dr. Iglesias in 1 week. MMODL / IJN: [id number] /
== END 2022-10-17 12:05 | disposition home or self-care (01) ==
LOC: EC 17:20 → 6NMEDSUR 22:24
PROVIDERS: ADMIT Internal Medicine; ATTEND Internal Medicine
DX: R07.89 Other chest pain (principal); R00.0 Tachycardia, unspecified; R53.1 Weakness; I10 Essential (primary) hypertension; M06.9 Rheumatoid arthritis, unspecified; M79.7 Fibromyalgia; G40.909 Epilepsy, unspecified, not intractable, without status epilepticus; E03.9 Hypothyroidism, unspecified; M35.00 Sjogren syndrome, unspecified; G47.00 Insomnia, unspecified; F41.9 Anxiety disorder, unspecified; F31.9 Bipolar disorder, unspecified; F32.A Depression, unspecified; F17.200 Nicotine dependence, unspecified, uncomplicated; G93.0 Cerebral cysts; J98.11 Atelectasis; I08.1 Rheumatic disorders of both mitral and tricuspid valves; I37.1 Nonrheumatic pulmonary valve insufficiency; Z82.49 Family history of ischemic heart disease and other diseases of the circulatory system; Z79.890 Hormone replacement therapy; Z79.899 Other long term (current) drug therapy; Z90.49 Acquired absence of other specified parts of digestive tract; Z90.11 Acquired absence of right breast and nipple
CPT/HCPCS: 96376 ×2; 96374; 96375; 99285; 36415; 93005; 93306; 84439; 84481; 80053; 80048; 85652; 84443; 82150; 82550; 83690; 83735; 84484; 85025; 85027; 85610; 85730; 86140; 81003; 80306; 71046; 72130; 72127; 72133; 70450; 71275; 70553; G0378 ×3; J2405 ×3; J1885 ×3; Q9967 ×2; A9585

== ENCOUNTER 2023-05-13 10:03 | Day surgery (SDC) | payer MEDICARE, OTHER ==
[2023-05-11 08:54] VITALS: BMI 31.7
--- NOTE | 2023-05-12 08:36 | P.HPOR ---
History of Present Illness H&P Date: 05/12/23 Chief Complaint: Left knee pain The patient is a 43-year-old female who is disabled presents with left knee pain for the past 6 months. She has diffuse pain along with swelling. Exam difficult time with walking, standing and use of stairs. She notes intermittent catching and locking. She's tried bracing along with an injection and therapy with minimal relief. She notes daily pain that limits her. Review of Systems Negative except as in HPI Past Medical History Past Medical History: Fibromyalgia, Hypertension, Memory Impairment, Osteoarthritis (OA), Rheumatoid Arthritis (RA), Seizure Disorder, Thyroid Disorder Additional Past Medical History / Comment(s): brain stem tumor, sjogren's syndrome, DDD, insomnia, degenerative joint, diverticulitis, migraines, last seizure 1 yr ago, History of Any Multi-Drug Resistant Organisms: None Reported Past Surgical History: Breast Surgery, Section, Cholecystectomy, Uterin e Ablation Additional Past Surgical History / Comment(s): brain tumor removed 2014, tummy tuck 2011 , C section X-5, rt breast lumptectomy Past Anesthesia/Blood Transfusion Reactions: Motion Sickness, Postoperative Nausea & Vomiting (PONV) Smoking Status: Current some day smoker - Past Family History Mother Family Medical History: No Reported History Medications and Allergies Home Medications Medication Instructions Recorded Confirmed Type Levothyroxine Sodium [Synthroid] 125 mcg PO DAILY 08/05/17 05/11/23 History clonazePAM [KlonoPIN] 25 mg PO TID 06/08/20 05/11/23 History Celecoxib [CeleBREX] 400 mg PO DAILY 07/25/20 05/11/23 History Omeprazole 20 mg PO DAILY 07/25/20 05/11/23 History Topiramate [Topamax] 100 mg PO BID 07/25/20 05/11/23 History Galcanezumab-Gnlm [Emgality Pen] 120 mg SQ Q30D 01/05/21 05/11/23 History Ergocalciferol [Vitamin D2 (1250 1,250 mcg PO ESQUIVEL 01/05/22 05/11/23 History Mcg = 13190 Iu)] Rizatriptan Benzoate [Rizatriptan] 10 mg PO DAILY PRN 01/05/22 05/11/23 History lamoTRIgine [LaMICtal] 100 mg PO DAILY 01/05/22 05/11/23 History traZODone HCL 300 mg PO HS 01/05/22 05/11/23 History Fluticasone Nasal [place] [Flonase 2 spray EA NOSTRIL DAILY 10/15/22 05/11/23 History Nasal [place]] HYDROcodone/APAP 5-325MG [[place] 1 tab PO TID 10/15/22 05/11/23 History 5-325] Venlafaxine HCl [Effexor XR] 75 mg PO DAILY 10/15/22 05/11/23 History Metoprolol Tartrate [Lopressor] 25 mg PO DAILY 05/11/23 05/11/23 History Allergies Allergy/AdvReac Type Severity Reaction Status Date / Time No Known Allergies Allergy Verified 05/11/23 09:11 Physical Examination - Knee left Appearance: effusion Effusion grade: trace Tenderness with palpation: lateral Pain: throughout ROM Gait: limping ROM: extension: -10 degrees ROM: flexion: 120 degrees Crepitus with motion: Yes Strength: extension: 5/5 Strength: flexion: 5/5 Meniscal tests: lateral meniscal tests: positive, lateral joint line pain: positive Results The patient is a well-developed well-nourished female approximately 5 foot 4, 183 pounds of endomorphic habitus. HEENT exam is nonfocal, neck supple. She has painless passive motion of her left hip. Straight leg raise is negative. Her distal neurovascular appears intact in the left lower extremity. - Diagnostic results Knee MRI: image reviewed (MRI of the left knee is reviewed and shows degenerative joint disease involving the patellofemoral articulation along with a lateral tibial chondral injury) Assessment and Plan Assessment: Left knee internal derangement/possible lateral tibial chondral injury/possible patellar chondral injury Plan: I talked to the patient with regard to her condition along with treatment options. This point she's quite symptomatic despite attempted conservative measures. After thorough discussion she opted to pursue surgery. We'll plan to proceed with arthroscopy of the left knee with possible lateral tibial construct me and patellar chondroplasty. We will likely perform as an outpatient procedure. Risks and benefits were discussed at length in layman's terms.
[2023-05-13] MEDS ORDERED: ONDANSETRON 4 MG/2 ML VIAL IVP ONE (10:08)
[2023-05-13] MEDS ORDERED: SCOPOLAMINE 1 MG/72 HR PATCH TRANSDERM ONE (10:08)
[2023-05-13] MEDS ORDERED: DEXAMETHASONE SOD PHOSPHATE 4 MG/ML 1 ML VIAL IV ONE (10:08)
[2023-05-13] MEDS ORDERED: MIDAZOLAM 2 MG/2 ML VIAL IV PRN (10:08)
[2023-05-13] MEDS: LACTATED RINGERS 1,000 ML IV SCH ×2 (10:34→12:55)
[2023-05-13] MEDS ORDERED: PROPOFOL 10 MG/ML 20 ML VIAL IV ONE ×2 (11:13→13:53)
[2023-05-13] MEDS ORDERED: KETOROLAC 15 MG/ML 1 ML VIAL ONE (11:13)
[2023-05-13] MEDS ORDERED: fentaNYL (PF) 50 MCG/ML 2 ML AMP ONE (11:13)
[2023-05-13] MEDS ORDERED: HYDROmorphone (PF) 1 MG/ML ONE (11:13)
[2023-05-13] MEDS ORDERED: MIDAZOLAM 2 MG/2 ML VIAL ONE (11:13)
[2023-05-13] MEDS ORDERED: EPINEPHrine (PF) 1 ML in SODIUM CHLORIDE 0.9% IRRIGATIO 3,000 ML IRRIGATION ONE ×4 (11:35)
--- NOTE | 2023-05-13 12:04 | P.OP ---
Date of Procedure: 05/13/23 Preoperative Diagnosis: Left knee internal derangement Postoperative Diagnosis: Grade 23 chondral injury posterior medial lateral tibial plateau, grade 2 chondral injury lateral patella facet, posterior lateral meniscal tear Procedure(s) Performed: Left knee arthroscopic partial lateral meniscectomy, lateral tibial chondrectomy, patellar chondroplasty Anesthesia: MITZI Surgeon: Deven Vital Estimated Blood Loss (ml): 10 Pathology: none sent Condition: stable Disposition: PACU Indications for Procedure: The patient is a 43-year-old female who presents with progressive left knee pain and mechanical symptoms despite conservative measures. A discussion of the risks and benefits of operative intervention versus continued conservative measures was made with patient. She opted to proceed with surgery. Operative risks to include infection, neurovascular injury, developed blood clots, possible incomplete resolution of symptoms, possible worsening symptoms and need for subsequent procedures was discussed. Informed consent was obtained. Operative Findings: As below Description of Procedure: The patient was brought to the operating room, and after induction of general anesthesia examined the left knee. Collaterals were stable, Maren was negative, and posterior drawer was negative. The left lower extremity was prepped and draped in a normal fashion. A superior lateral portal was made through a 3 mm skin incision superior and lateral to the patella. This was used for outflow. A lateral portal was made through a 5 mm vertical skin incision lateral to the patella tendon above the joint line. Diagnostic arthroscopy was performed. On inspection of the medial compartment, no significant meniscal or cartilage pathology was noted. On inspection of the notch, the anterior cruciate ligament appeared to be intact. On inspection of the lateral compartment, a grade 23 chondral injury was noted involving the posterior medial portion of the lateral tibial plateau. There was a loose chondral flap that was debrided back to stable base with a motorized shaver. Associated posterior lateral meniscal tear was noted in the white-white junction. This was debrided back to stable base with straight baskets and a motorized shaver. The remaining lateral meniscus was stable and intact. On inspection of the patellofemoral articulation, a grade 2 chondral injury was noted involving the lateral patella facet. The loose chondral flap debrided back to stable base with a motorized shaver. The femoral trochlear articular cartilage appeared to be intact.. The gutters were clear debris. The knee was then thoroughly irrigated. The portals were closed with Steri-Strips. A sterile dressing was applied in addition to a compression stocking. The patient was awoken from general anesthesia and transferred to recovery room in good condition. Blood loss was estimated at 10 mL. No complications were incurred.
[2023-05-13] MEDS: HYDROmorphone 0.5 MG/0.5 ML SYRINGE IVP PRN ×4 (12:13→12:43)
[2023-05-13 12:15] VITALS: TEMP 97.3
[2023-05-13 13:05] VITALS: RESP 20
[2023-05-13] MEDS ORDERED: HYDROcodone/APAP 10-325MG 1 EACH TAB ONE (13:19)
[2023-05-13] MEDS ORDERED: HYDROcodone/APAP 10-325MG 1 EACH TAB PO ONE (13:20)
[2023-05-13 13:49] VITALS: BP 116/70; PULSE 68
== END 2023-05-13 14:33 | disposition home or self-care (01) ==
LOC: OR 10:03
PROVIDERS: ATTEND Orthopaedic Surgery
DX: S83.282A Other tear of lateral meniscus, current injury, left knee, initial encounter (principal); I10 Essential (primary) hypertension; M79.7 Fibromyalgia; M06.9 Rheumatoid arthritis, unspecified; G40.909 Epilepsy, unspecified, not intractable, without status epilepticus; F17.200 Nicotine dependence, unspecified, uncomplicated; M35.00 Sjogren syndrome, unspecified; Z90.49 Acquired absence of other specified parts of digestive tract; Z98.891 History of uterine scar from previous surgery; Z98.890 Other specified postprocedural states; X58.XXXA Exposure to other specified factors, initial encounter; Z79.899 Other long term (current) drug therapy
CPT/HCPCS: 81025; 29881; J2250; J1100; J0690; J2405; J0171; J3010; J1170 ×2; J1885; J2704

== ENCOUNTER → 2023-09-16 | Day surgery (SDC) | payer MEDICARE, OTHER ==
[~2023-09-16] MED LIST changes: -DEXAMETHASONE SOD PHOSPHATE 10 MG/ML 1 ML VIAL IV ONE; +LIDOCAINE 1% (10MG/ML) FOR IV START INTRADERMA PRN; +LIDOCAINE 1% INJ 10MG/ML (20 ML MDV) ONE; -MIDAZOLAM 2 MG/2 ML VIAL IV PRN; -ONDANSETRON 4 MG/2 ML VIAL IVP ONE; +PROPOFOL 10 MG/ML 20 ML VIAL IV ONE; -Pre Op ABX Message 1 EACH MISC MISCELLANE ONE; -SCOPOLAMINE 1.5MG/72HR PATCH TRANSDERM ONE
[2023-09-16 14:23] VITALS: RESP 16; TEMP 98.3
--- NOTE | 2023-09-16 15:08 | P.PCN ---
Date of Procedure: 09/16/23 Procedure(s) Performed: Brief history: Patient is a pleasant 43-year-old white scheduled for an elective upper endoscopy as well as colonoscopy as a part of evaluation of nausea vomiting and change in bowel habits for the last several months duration. Procedure performed: Esophagogastroduodenoscopy biopsy Colonoscopy with biopsy Preoperative diagnosis: Nausea and vomiting Change in bowel habits Anesthesia: MAC Procedure: After informed consent was obtained from the patient was brought into the endo scopy unit and IV sedation was administered by anesthesia under continuous monitoring. Initially upper endoscopy was done. The Olympus GF 160 video endoscope was inserted inserted into the mouth and esophagus intubated without any difficulty and was gradually advanced into the stomach and duodenum and carefully examined. The bulb and second part of the duodenum appeared normal. The scope was then withdrawn into the stomach adequately insufflated with air and upon careful examination the antrum and body, cardia and fundus appeared normal. The scope was then withdrawn into the esophagus. The GE junction was located at 40 cm to the incisors. It appeared regular with no erythema erosions or ulcerations. Rest of the esophagus appeared normal. Patient tolerated the procedure well. At this time the patient continued to remain sedation. Initial digital rectal examination was normal. Olympus CF 160 video colonoscope was then inserted into the rectum and gradually advanced to the cecum without any difficulty. Careful examination was performed as the scope was gradually being withdrawn. The prep was excellent. The terminal ileum was intubated and 20 cm visualized and appeared normal. The cecum, ascending colon, transverse colon, descending colon, sigmoid colon and rectum appeared normal. Biopsies were done from ascending and descending colon to rule out microscope/collagenous colitis. Retroflexion was performed in the rectum and no lesions were noted. Patient tolerated the procedure well. Impression: 1. Upper endoscopy revealed mild antral gastritis but no evidence of esophagitis or peptic ulcer disease 2. Colonoscopy was within normal limits with no evidence of colitis or colorectal neoplasia Recommendations: Findings of this examination were discussed with the patient as well as a family. She was advised to follow with the biopsy result. She'll be seen in office in 2 weeks.
[2023-09-16 15:55] VITALS: BP 132/88; PULSE 80
== END ==
LOC: ORWHC2ENDO 13:11
PROVIDERS: ATTEND Internal Medicine Gastroenterology
DX: K31.9 Disease of stomach and duodenum, unspecified (principal); R19.4 Change in bowel habit; E03.9 Hypothyroidism, unspecified; K21.9 Gastro-esophageal reflux disease without esophagitis; M79.7 Fibromyalgia; G40.89 Other seizures; Z79.1 Long term (current) use of non-steroidal anti-inflammatories (NSAID); F17.200 Nicotine dependence, unspecified, uncomplicated; F12.90 Cannabis use, unspecified, uncomplicated; Z79.899 Other long term (current) drug therapy
CPT/HCPCS: 81025; 88305; 45380; 43239; J2001; J2704

== ENCOUNTER → 2023-10-05 | Outpatient (CLI) | payer MEDICARE, OTHER ==
--- NOTE | 2023-10-05 09:23 | MM ---
Reason for Exam: Screening (asymptomatic). Baseline mammogram. Patient History: Menarche at age 15. First Full-Term at age 20. Patient has history of breast feeding. 2006, Excisional Biopsy on the Right side. Risk Values: Lorena 5 year model risk: 0.9%. NCI Lifetime model risk: 9.7%. Prior Study Comparison: Patient's first Mammogram. Tissue Density: The breast tissue is heterogeneously dense. This may lower the sensitivity of mammography. Findings: Analyzed By CAD. There is no suspicious group of microcalcifications within either breast. No suspicious mass within left breast. Partially obscured high density ovoid mass within the upper outer right breast at posterior depth measuring 1.2 cm. Overall Assessment: Incomplete: need additional imaging evaluation, BI-RAD 0 Management: Diagnostic Breast Ultrasound of the right breast. A clinical breast exam by your physician is recommended on an annual basis and results should be correlated with mammographic findings. [facility] will attempt to contact patient to return for supplemental views and ultrasound if indicated. Note on Lorena scores and lifetime risk: 1. A Lorena score greater than 3% is considered moderate risk. If this is the case, consider specialist referral to assess eligibility for a risk reducing agent. If overall lifetime risk for the development of breast cancer is 20% or higher, the patient may qualify for future screening with alternating mammogram and breast MRI. Electronically signed and approved by: Adan Solis D.O.
--- NOTE | 2023-10-05 10:07 | BD ---
EXAMINATION TYPE: Axial Bone Density DATE OF EXAM: 10/05/2023 CLINICAL HISTORY: 43 years old Female. ICD-10 CODE: M89.9 DISORDER OF BONE Height: 63.5 Weight: 178 FRAX RISK QUESTIONS: History of Fracture in Adulthood: yes, both elbows and lt hand/wrist, rt ankle x4 2005 Secondary Osteoporosis: no 3. Menopause before 45: no Rheumatoid Arthritis: yes Current Tobacco Use: yes RISK FACTORS HISTORY OF: History of Wrist Fracture: yes lt When: 2020 Family History of Osteoporosis: no Active: yes Diet low in dairy products/other sources of calcium: no Postmenopausal woman: no If Premenopausal, do you have irregular periods: ablation Lost more than 2 inches in height since high school: no Frequent falls: no MEDICATIONS: Thyroid Medications: yes Which medication: Levothyroxine How Lon+ years Additional Medications: yes seizure meds , hbp meds, pain meds, anxiety, multi vit, sleep meds, reflux meds EXAM MEASUREMENTS: Bone mineral densitometry was performed using the [employer] System. Bone mineral density as measured about the Lumbar spine is: ----- L1-L4(G/cm2): 1.148 T Score Values are as follows: ----- L1: -1.0 ----- L2: 0.3 ----- L3: -0.1 ----- L4: -0.4 ----- L1-L4: -0.3 Z Score Values are as follows: ----- L1: -1.6 ----- L2: -0.2 ----- L3: -0.6 ----- L4: -1.0 ----- L1-L4: -0.8 Bone mineral density baseline Bone mineral density about the R hip (g/cm2): 1.033 Bone mineral density about the L hip (g/cm2): 1.013 T Score values are as follows: -----R Neck: -0.4 -----L Neck: -0.2 -----R Total: 0.2 -----L Total: 0.0 Z Score values are as follows: -----R Neck: -0.2 -----L Neck: -0.1 -----R Total: 0.1 -----L Total: -0.1 Bone mineral density baseline FRAX%s: The graph provided illustrates a 4.0% chance for a major osteoporotic fx and a 0.2% chance fo r the hips probability for fx in 10 years time. IMPRESSION: Normal (Values between +1 and -1 indicate normal bone mass). Consider repeating this study in 5 year s or sooner if there is some new clinical indication. NOTE: T-SCORE=SD OF THE YOUNG ADULT MEAN.
== END | disposition home or self-care (01) ==
LOC: RADMAMWWP 08:22
PROVIDERS: ATTEND Family Medicine
DX: Z12.31 Encounter for screening mammogram for malignant neoplasm of breast (principal); M89.9 Disorder of bone, unspecified
CPT/HCPCS: 77063; 77067; 77080

== ENCOUNTER → 2023-10-14 | Outpatient (CLI) | payer MEDICARE, OTHER ==
--- NOTE | 2023-10-14 13:42 | USB ---
Reason for Exam: Additional evaluation requested from abnormal screening. Patient History: Menarche at age 15. First Full-Term at age 20. Patient has history of breast feeding. 2006, Excisional Biopsy on the Right side. Risk Values: Lorena 5 year model risk: 0.9%. NCI Lifetime model risk: 9.7%. Technique: Method: Targeted. Prior Study Comparison: 10/05/2023 Bilateral MG 3D screening mammo w/cad, [facility]. Findings: The upper outer quadrant of the right breast, the axilla of the right breast and the retroareolar of the right breast were scanned. Technique utilized:US breast workup limited RT Image; Ultrasound imaging of: Area of concern, retroareolar region and axilla. Area in the right breast lateral aspect posterior depth mammography is felt to correlate with a cyst at 9:00 7 cm the nipple measuring 9 x 7 x 3 cm Right breast 10:00 5 cm from nipple indeterminate focal lesion measuring 7 x 3 x 6 mm with some posterior acoustic enhancement could represent complicated cyst. Additional morphologic normal-appearing lymph node in the axilla. Overall Assessment: Probably benign, BI-RAD 3 Management: Diagnostic Breast Ultrasound of the right breast in 6 months. A clinical breast exam by your physician is recommended on an annual basis and results should be correlated with mammographic findings. This exam should not preclude additional follow-up of suspicious palpable abnormalities. Results were given to the patient verbally at the time of exam. Electronically signed and approved by: Negrito Finn DO
== END | disposition home or self-care (01) ==
LOC: RADUSWWP 12:46
PROVIDERS: ATTEND Family Medicine
DX: R92.8 Other abnormal and inconclusive findings on diagnostic imaging of breast (principal)

== ENCOUNTER → 2024-01-18 | Outpatient (CLI) | payer MEDICARE, OTHER ==
--- NOTE | 2024-01-18 15:53 | XR ---
EXAMINATION TYPE: XR knee complete RT DATE OF EXAM: 01/18/2024 COMPARISON: NONE HISTORY: Pain TECHNIQUE: Three views are submitted. FINDINGS: Mild narrowing of the medial compartment of the knee joint. No erosive changes.. Osseous structures are intact. No acute fracture seen. IMPRESSION: 1. No acute fracture or dislocation.
== END | disposition home or self-care (01) ==
LOC: RADXRMAIN 14:46
PROVIDERS: ATTEND Family Medicine
DX: M25.561 Pain in right knee (principal)

== ENCOUNTER → 2024-02-16 | Outpatient (CLI) | payer MEDICARE, OTHER ==
--- NOTE | 2024-02-17 04:25 | MR ---
EXAMINATION TYPE: MR knee RT wo con DATE OF EXAM: 02/16/2024 COMPARISON: Outside right knee x-ray January 23, 2024 HISTORY: No prior, right inner knee medial pain after fall, locking and swelling for one month, no odonnell rgery TECHNIQUE: Multiplanar, multisequence images of the knee is performed without IV contrast. FINDINGS: MEDIAL MENISCUS: Irregularity with abnormal signal along the posterior aspect of the posterior horn. LATERAL MENISCUS: Anterior and posterior horns are intact without tear. CRUCIATE LIGAMENTS: The anterior and posterior cruciate ligaments are intact and unremarkable. COLLATERAL LIGAMENTS: The medial collateral ligament and lateral collateral ligament complex are inta ct. Marked fluid signal surrounds the medial collateral ligament. Thickening and increased signal inv olving the lateral collateral ligament. Suspect chronic sprain injury. EXTENSOR MECHANISM: Visualized quadriceps and patellar tendons are intact. EFFUSION: No significant suprapatellar joint effusion. POPLITEAL CYST: No popliteal/[place] cyst. TRICOMPARTMENT SPACES: Mild to moderate narrowing patellofemoral compartment. Mild narrowing medial t ibiofemoral compartment. No significant spurring. CARTILAGE: Some early cartilaginous loss medial tibiofemoral and patellofemoral compartments. BONE MARROW SIGNAL: No focal abnormal marrow signal is appreciated. OTHER: No additional significant abnormality is appreciated. IMPRESSION: 1. Peripheral full-thickness tear posterior horn medial meniscus. 2. Mild to moderate tricompartment degenerative changes as detailed above. 3. Moderate MCL sprain injury.
== END | disposition home or self-care (01) ==
LOC: RADMRIMAIN 16:20
PROVIDERS: ATTEND Orthopaedic Surgery
DX: M17.11 Unilateral primary osteoarthritis, right knee (principal); M23.631 Other spontaneous disruption of medial collateral ligament of right knee; M23.322 Other meniscus derangements, posterior horn of medial meniscus, left knee

== ENCOUNTER → 2024-04-20 | Outpatient (CLI) | payer MEDICARE, OTHER ==
--- NOTE | 2024-04-20 11:28 | USB ---
Reason for Exam: Follow-up at short interval from prior study. Patient History: Menarche at age 15. First Full-Term at age 20. Patient has history of breast feeding. 2006, Excisional Biopsy on the Right side. Risk Values: Lorena 5 year model risk: 1.0%. NCI Lifetime model risk: 9.6%. Technique: Method: Targeted. Prior Study Comparison: 10/05/2023 Bilateral MG 3D screening mammo w/cad, [facility]. Findings: The upper outer quadrant of the right breast, the axilla of the right breast and the retroareolar of the right breast were scanned. At the 9:00 position 5 cm from the nipple there is a 0.4 x 0.3 x 0.4 cm hypoechoic area with good through transmission. This may be a very small cyst. This is slightly smaller than the comparison study. At the 9:00 position 7 cm from nipple there is a hypoechoic 0.7 x 0.5 x 0.9 cm hypoechoic area with good through transmission posterior wall enhancement. Small cysts likely present. This appears stable from comparison. At the 10:00 position 7 cm from the nipple is a simple appearing cyst measuring 0.5 x 0.7 x 0.3 cm simple appearing cyst. This was present previously and appears stable. Within the right axilla there is a small lymph node. Cortex is stable from comparison. Overall Assessment: Benign, BI-RAD 2 Management: Screening Mammogram of both breasts in 6 months. A clinical breast exam by your physician is recommended on an annual basis and results should be correlated with mammographic findings. This exam should not preclude additional follow-up of suspicious palpable abnormalities. Results were given to the patient verbally at the time of exam. Electronically signed and approved by: Panda Abdullahi D.O. Radiologis
== END | disposition home or self-care (01) ==
LOC: RADUSWWP 08:26
PROVIDERS: ATTEND Family Medicine
DX: N63.12 Unspecified lump in the right breast, upper inner quadrant (principal)

== ENCOUNTER → 2024-07-17 | Outpatient (CLI) | payer MEDICARE, OTHER ==
--- NOTE | 2024-08-20 11:46 | CONS ---
CONSULTATION REASON FOR CONSULTATION: Insomnia. HISTORY OF PRESENT ILLNESS: A 44-year-old female patient who coming in for symptoms of chronic insomnia. She has been having those symptoms for at least 10 years. She states that for 5 days a week she sleeps between 3 to 5 hours and for 2 days a week she sleeps around 7 hours. On those days where her sleep is short, she feels more fatigued and tired during the day. She typically goes to bed at around 11:00 p.m. till midnight and she gets out of bed at around 6 to 7 a.m. in the morning and she is able to average around 5 to 7 hours of sleep max and minimum of 3 hours of sleep. Sometimes it takes her few hours to fall asleep. However, her insomnia is not consistent as the patient is having days where she is sleeping around 7 hours. Occasionally she snores. She is restless at night and she feels very much fatigued and tired during the day. She is a chronic smoker. No substance abuse. No alcoholism. She drinks 1 cup of coffee in the morning. The patient has tried various hypnotics in the past including Lunesta, which gave her a metal taste and Ambien, which made her having dreams that were vivid and sleepwalking. As such, both of the medication has been discontinued. She claims that her main difficulties in falling sleep is related to the fact that she cannot shut off her brain as the patient has racing thoughts and this brings a quite a bit of anxiety. At same time she has issues with chronic pain and she has been maintained on [place] 10 four times a day. Her comorbidities are extensive. 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 She also has had seizure episodes, which have resulted into falls and musculoskeletal injuries and fractured bones. As such, she suffers from chronic pain requiring [place]. Her seizures have been under adequate control for now. She denied having any nocturnal seizures, although the patient states that she is going to have a 72-hour EEG monitoring through her neurologist to rule out any ongoing seizure activity. She has chronic anxiety/bipolar disorder/depression, maintained on a combination of Klonopin 1 mg t.i.d., Topamax, and Lamictal. She is also on Effexor 75 mg p.o. daily. She takes trazodone 300 mg at bedtime for sleep induction and maintenance. No history of any substance abuse. No head trauma. No history of meningitis. No history of any stroke. She is having some difficulties in vision, which she attributes to recurrence in the brainstem tumor. PAST MEDICAL HISTORY: 1. Hypothyroidism. 2. Hypertension. 3. Mixed connective tissue disease disorders including Sjogren's disease and rheumatoid arthritis. 4. Osteoarthritis. 5. Seizure disorder. 6. Fractured bones related to falls. 7. History of depression. 8. Bipolar disorder. 9. Chronic anxiety. 10.Migraines. 11.BAR HOST/HOSTESS tumor that was assumed to be benign and the patient has undergone a previous craniotomy back in 2013 and this is a brainstem tumor. PAST SURGICAL HISTORY: Includes x5, abdominoplasty, lumpectomy, cholecystectomy, craniotomy, resection of brainstem tumor, repair of ligament of the thumb, and left knee arthroscopy. MEDICATIONS: Include; 1. Synthroid 125 mcg one tablet a day. 2. Vitamin B12. 3. Vitamin D 50,000 units every week. 4. Cozaar/hydrochlorothiazide 50/12.5 one tablet a day. 5. [place] 10/325 t.i.d. 6. Klonopin 1 mg t.i.d. 7. Topamax 100 mg b.i.d. 8. Baclofen 10 mg t.i.d. 9. Ibuprofen 800 mg p.r.n. 10.Voltaren gel. 11.Lamictal 100 mg p.o. daily. 12.Effexor 75 mg p.o. daily. 13.Trazodone 10 mg bedtime. ALLERGIES: Drug allergies are not known. SOCIAL HISTORY: Positive smoking. No history of alcohol. No history of substance abuse. FAMILY HISTORY: Noncontributory at this point. Negative for any sleep disorders in her family history. REVIEW OF SYSTEMS: A 12-point review of system was done. It is positive for chronic pain, chronic anxiety, chronic migraines. No sleepwalking or sleep talking. No grinding of the teeth. No palpitation or heartburn. No angina or palpitation. No shortness of breath. Mental health is positive for anxiety and depression and bipolar disorder. PHYSICAL EXAMINATION: VITAL SIGNS: BP is 128/80, pulse 87, respirations 16, temperature 98.3, weight is 181. York score is at 3. Neck size 15. BMI 31.5. GENERAL APPEARANCE: Calm and comfortable. HEAD: Atraumatic, normocephalic. NECK: Supple. No JVD. No goiter or neck masses. LUNGS: Diminished otherwise clear. HEART: Sounds are regular rate and rhythm. Normal S1, S2. No S3. No murmurs. ABDOMEN: Soft, nontender. No organomegaly. EXTREMITIES: No edema, cyanosis, or clubbing. NEUROLOGIC: Awake and alert x3. There is no focal neurological deficit. ASSESSMENT: 1. Chronic insomnia, multifactorial, probably related to extensive number of comorbidities as stated above. Doubt underlying primary sleep breathing disorder. Possibility of nocturnal seizure is also considered to be less likely. 2. History of benign tumor involving the brainstem with previous craniotomy and tumor resection. The patient is being considered for another surgery as there has been recurrence in the brainstem lesion based on followup imaging. 3. Chronic bipolar disorder/anxiety/depression. 4. Chronic pain related to falls and broken bones. 5. History of seizure disorder, which seems to be currently inactive and stable. 6. Sjogren's disease. 7. Rheumatoid arthritis. 8. Osteoarthritis. 9. Migraines. 10.Hypothyroidism. 11.Hypertension. PLAN: The patient does have some episodes of insomnia. Overall functionality during the day is somewhat impaired, yet the patient is not completely dysfunctional at this point in time. She is going to work on implementing cognitive behavior therapy, sleep restriction, or stimulus control, and improving her sleep hygiene measures. Her current medication is appropriate. I think there is some ongoing level of anxiety despite her being on Klonopin and Effexor. She has tried hypnotic agents in the past, which has failed. As such, no additional hypnotic agent will be used at this point. Continue trazodone 300 mg at bedtime. May consider addition of low-dose Seroquel at a later stage if she continues to have ongoing issues with insomnia. She is going to have a 72-hour EEG monitoring. She is going to have a neurosurgical evaluation regarding her brainstem tumor. She is going to see me back in followup for further medication adjustments. For the time being, no additional medication has been recommended and will implement conservative measures of insomnia treatment. We will continue to follow. MMODL / IJN: [id number] /
== END ==
LOC: 3 N SLEEP 14:20
PROVIDERS: ATTEND Internal Medicine Critical Care Medicine
CPT/HCPCS: 99211

== ENCOUNTER → 2025-04-18 | Outpatient (CLI) | payer MEDICARE, OTHER ==
[2025-04-18 13:45] VITALS: RESP 16
[2025-04-18 13:48] VITALS: BP 118/86; PULSE 85; TEMP 97.3
--- NOTE | 2025-04-18 16:57 | P.PAINPG ---
PQRS Measure Charge Sheet Comment: HISTORY OF PRESENT ILLNESS: A 45 yr old female as a referral from Dr Tamayo presents today w severe and chronic head and neck pain secondary to occipital neuralgia/ cervicogenic RAMOS for evaluation. Pt states pain level is provoked at7 /10 in intensity, constant, localized in the back of the head, predominantly axial, sharp in character w occasional shooting pain towards the top of the head. Pain is provoked by hyperextension. Pain is alleviated by PT x 6 wks (cerv) which ended in Oct 2024, physician guided home stretches daily since Oct 2024, medications, topical, repositioning and rest . PMH: OA, Fibromyalgia, HTN, Memory Impairment, RA, Seizure Disorder, Hypothyroidism, Sjogren's Disease PSH: Brain Stem Tumor Resection (2014), R Breast Lumpectomy, Tummy Tuck (2011), C- Section x5, Cholecystectomy, Uterine Ablation SH: Daily tobacco use, No ETOH use, No illicit drug use FH: Mo- No Reported History All: See list Medications include [place], [place], [place] REVIEW OF ORGAN SYSTEMS: CONSTITUTIONAL: No fevers or chills. No recent weight loss. NEUROLOGICAL: + numbness and tingling along the distal extremities. No seizure disorders or headaches. MUSCULOSKELETAL: + pain PSYCHIATRIC: Denies current depression or suicidal thoughts. Physical Examinations : Constitutional : Cooperative , not in acute distress . Neurologic : Cranial nerve II to XII intact. No focal neurological deficits. Psychiatric : alert & oriented x 3. Matching mood & appropriate affect. Judgment & insight intact. Musculoskeletal : Cervical Spine +BL JANES TTP Motor strength in the deltoid and biceps: Normal right side. Normal Left side Motor strength biceps and the wrist extensors: Normal right side . Normal left side Motor strength in the triceps muscle: Normal right side. Normal left side Deep tendon reflexes: Normal at the biceps. Normal at Brachioradialis. Normal at triceps Vertebral body tenderness to deep palpation over Cervical facet loading test: positive bilaterally Spurling test: positive bilaterally Neck distraction test: positive bilaterally Yen sign: positive bilaterally Lumbar spine Motor strength lower extremities ,thigh and legs 5/5 Right side , 5/5 Left side Deep tendon reflexes : Normal Knee Jerk. Normal Ankle Jerk Vertebral body tenderness over Resendez Test positive Lumbar facet Loading Test: positive Right / positive Left Range of motion of the lumbar spine Flexion 30 degrees, extension 10 degrees Straight Leg Raise test: Left/ Right positive at degrees [place] test: positive right / positive left. Severe tenderness over the Sacroiliac joint on the Right / Left sides Gaenslen test: positive bilaterally Seated flexion test: positive bilaterally. Sacral spine : Severe tenderness over the Sacroiliac joint: right side / left side Range of motion: Flexion of the lumbar spine <60 degrees Range of motion: Extension of the lumbar spine <20 degrees Gaenslen's Test positive [place] test: positive right side / left side Thigh Thrust Test Sacral Thrust Test Imaging: MRI non contrast brain from 07/16/24 reviewed Assessment/ Plan : Occipital Neuralgia/ Cervicogenic RAMOS Recommendation of SHARON JANES #1. Risks, benefits of procedure discussed and patient verbalized understanding. Admits to anti- coagulant use or medical history of diabetes. Protocol for discontinuation/ continuation of medications margarette procedure discussed. All questions answered. I have spent greater than 30 minutes on patient care today. Dr Rivas was available by phone for the evaluation of this patient. The time was used to review the medical records including relevant urine studies and Prescription history (MAPs), review of the available imaging, evaluation and examination of the patient, coordination of care with the medical staff and if applicable referring physicians, as well as creation of the medical record PQRS Narrative: Smoking Status Current every day smoker Home Medications: Ambulatory Orders Levothyroxine Sodium [Synthroid] 125 mcg PO DAILY 08/05/17 Omeprazole 20 mg PO DAILY 07/25/20 Topiramate [Topamax] 100 mg PO BID 07/25/20 lamoTRIgine [LaMICtal] 100 mg PO DAILY 01/05/22 traZODone HCL 300 mg PO HS 01/05/22 HYDROcodone/APAP 10-325MG [[place] 10-325] 1 tab PO TID PRN 05/13/23 Ibuprofen [Motrin] 800 mg PO Q8H PRN 09/15/23 clonazePAM [KlonoPIN] 0.5 mg PO TID 09/15/23 Promethazine [Phenergan] 12.5 mg PO Q8HR PRN 09/16/23 Controlled Substance Measures - Controlled Substance Measures Is patient prescribed a controlled substance at discharge?: No
== END ==
LOC: PNWHC3 13:30
PROVIDERS: ATTEND Specialist
DX: M54.81 Occipital neuralgia (principal); G44.86 Cervicogenic headache; F12.90 Cannabis use, unspecified, uncomplicated; F17.200 Nicotine dependence, unspecified, uncomplicated
CPT/HCPCS: 99211